=== PATIENT | female | born 1930 | race Caucasian/White ===

== ENCOUNTER 2016-07-28 14:58 | Emergency (ER) | payer MEDICARE, OTHER ==
[~2016-07-28] VITALS: Ht 157.5 cm; Wt 87.1 kg
[~2016-07-28 14:58] MED LIST: ACET325T9 PO; AMLO10TA4 PO; ATROVENT HFA12.9 GM IH; BUDE10.2 IH; CALC200T3 PO; CALC600T4 PO; CHOL100013 PO; CHOL10002 PO; DIGO125T PO; DILT240C32 PO; DILT300C PO; DILT300C4 PO; DULO20CA PO; FELO10TA PO; FLUO20CA8 PO; FURO20TA3 PO; FURO40TA4 PO; FURO80TA72 PO; GABA-585 PO; GABA-586 PO; LEVO100T5 PO; LEVO125T5 PO; LEVO250T25 PO; LISI30TA4 PO; LISI40TA PO; MELA5TAB PO; METO-269 PO; METO100T2 PO; METR500T PO; OMEG300C PO; OMEG500C PO; OMEP20TA PO; PANT40TA3 PO; POTA20TA4 PO; PRIM50TA PO; SITA25TA PO; SUCR1TAB PO; SUCR1TAB29 PO; WARF5TAB7 PO; WARF5VIA PO; XOPENEX HFA15 GM IH; ZOLP5TAB PO
[2016-07-28 15:41] LABS: BILIRUBIN,URINE NEGATIVE (NEG); GLUCOSE,URINE NEGATIVE (NEG); NITRITE,URINE NEGATIVE (NEG); PROTEIN,URINE NEGATIVE (NEG-TRACE); UROBILINOGEN,URINE 0.2 mg/dL (0.2 mg/dL)
--- NOTE | 2016-07-28 16:06 | RAD ---
EXAM: Chest one view. HISTORY: Weakness and fatigue. COMPARISON: 10/31/2015. FINDINGS: A frontal view of the chest is obtained. There is mild basilar atelectasis. There is no pneumothorax or pleural effusion. The heart is mildly enlarged. There are atherosclerotic calcifications of the aorta. A right total shoulder arthroplasty is noted. IMPRESSION: 1. Mild cardiomegaly.
[2016-07-28] MEDS ORDERED: CYAN10005 PO (16:18)
[2016-07-28] MEDS ORDERED: MELA10CA PO (16:18)
[2016-07-28] MEDS ORDERED: SOTA160T PO (16:18)
[2016-07-28] MEDS ORDERED: HYDR-2762 PO (16:18)
[2016-07-28] MEDS ORDERED: FERR-26 PO (16:18)
[2016-07-28] MEDS ORDERED: SUCR1TAB PO (16:18)
[2016-07-28 16:20] LABS: WBC,URINE >40 /HPF (0-4)
[2016-07-28 16:21] LABS: BACTERIA,URINE FEW /HPF (0-FEW); SQUAMOUS EPITHELIAL CELL,UR FEW /LPF
[2016-07-28 16:37] LABS: BASO # 0.1 x10^3/uL (0.0-0.2); BASO % 1 % (0-3); EOS % 4 % (0-3); HEMATOCRIT 43.3 % (36.0-47.0); LYMPH # 1.7 x10^3/uL (1.0-4.8); LYMPH % 19 % (24-48); MEAN CORPUSCULAR HEMOGLOBIN 29 pg (25-35); MEAN CORPUSCULAR HGB CONC 32 g/dL (31-37); MEAN CORPUSCULAR VOLUME 91 fL (79-100); MONO % 7 % (0-9); NEUT % 70 % (31-73); PLATELET COUNT 169 x10^3/uL (140-400); RED BLOOD COUNT 4.76 x10^6/uL (3.50-5.40); RED CELL DISTRIBUTION WIDTH 14.3 % (11.5-14.5); WHITE BLOOD COUNT 8.9 x10^3/uL (4.0-11.0)
[2016-07-28] MEDS ORDERED: LORAZEPAM 2 MG/ML VIAL ONE (16:45)
[2016-07-28 16:47] LABS: CALCIUM 9.2 mg/dL (8.5-10.1); CREATININE 1.2 mg/dL (0.6-1.0); GFR 42.6; POTASSIUM 3.8 mmol/L (3.5-5.1)
[2016-07-28 16:53] LABS: ALBUMIN 3.5 g/dL (3.4-5.0); DIRECT BILIRUBIN 0.1 mg/dL (0.0-0.2); TOTAL BILIRUBIN 0.3 mg/dL (0.2-1.0); TOTAL PROTEIN 7.3 g/dL (6.4-8.2)
--- NOTE | 2016-07-28 17:00 | PHYS DOC ---
Past Medical History Past Medical History: A-Fib, CHF, Depression, GERD, Heart Disease, Hypertension , Hypothyroid, Seizure, Other Additional Past Medical Histor: chronic low back pain Past Surgical History: Hysterectomy, Knee Replacement, Tonsillectomy Additional Past Surgical Histo: 7 low back , lumpectomy L breast, R shoulder replace, R wrist, knee scope Alcohol Use: None Drug Use: None Adult General Chief Complaint Chief Complaint: WEAKNESS/GENERALIZED HPI HPI 85-year-old female presenting to the emergency department with polyuria, dysuria and generalized weakness over the past day. She reports lightheadedness when standing up. The pain is a cramping sensation in the suprapubic region which is associated with weakness. It is nonradiating mild to moderate and happens when she urinates. Review of systems is negative for chest pain shortness of breath abdominal pain cough and runny nose fevers or chills. (nursing note states "flu like symptoms" i clarified what they meant. They meant weak. Pt does not have actual flu like symptoms.) All other review of systems is negative unless otherwise noted in history of present illness. Review of Systems Review of Systems SEE ABOVE. Current Medications Current Medications Current Medications Medications (Trade) Dose Ordered Sig/Reji Start Time Stop Time Status Last Admin Dose Admin Lorazepam 2 mg 2 mg STK-MED ONCE 07/28/16 16:45 07/28/16 16:46 DC Sodium Chloride (Iv Sodium Chloride 0.9% 500ml Bag) 500 ml @ 500 mls/hr 1X ONCE 07/28/16 17:15 07/28/16 18:14 Allergies Allergies Allergies Coded Allergies Type Severity Reaction Last Updated Verified aspirin Allergy Intermediate 10/31/15 Yes morphine Adverse Reaction Intermediate confusion 07/28/16 Yes Physical Exam Physical Exam Constitutional: Well developed, well nourished, no acute distress, non-toxic appearance. HENT: Normocephalic, atraumatic, bilateral external ears normal, oropharynx moist, no oral exudates, nose normal. Eyes: PERRLA, EOMI, conjunctiva normal, no discharge. [] Neck: Normal range of motion, no tenderness, supple, no stridor. Cardiovascular:Heart rate regular rhythm, no murmur [] Lungs & Thorax: Bilateral breath sounds clear to auscultation Abdomen: Mild tenderness in the suprapubic region without CVA tenderness. No rebound tenderness or guarding present. Skin: Warm, dry, no erythema, no rash. Back: No tenderness, no CVA tenderness. [] Extremities: No tenderness, no cyanosis, no clubbing, ROM intact, no edema. Neurologic: Alert and oriented X 3, normal motor function, normal sensory function, no focal deficits noted. [] Psychologic: Affect normal, judgement normal, mood normal. [] Current Patient Data Vital Signs Vital Signs Date Time Temp Pulse Resp B/P Pulse Ox O2 Delivery O2 Flow Rate FiO2 07/28/16 17:13 63 142/66 92 Room Air 07/28/16 16:29 20 07/28/16 15:08 98.1 98.1 Lab Values Laboratory Tests Test 07/28/16 15:25 07/28/16 16:25 Urine Collection Type Void Urine Color Yellow Urine Clarity Clear Urine pH 5.0 Urine Specific [place] 1.020 Urine Protein Negativemg/dL (NEG-TRACE) Urine Glucose (UA) Negativemg/dL (NEG) Urine Ketones (Stick) Negativemg/dL (NEG) Urine Blood Small (NEG) Urine Nitrite Negative (NEG) Urine Bilirubin Negative (NEG) Urine Urobilinogen Dipstick 0.2mg/dL (0.2 mg/dL) Urine Leukocyte Esterase Negative (NEG) Urine RBC 6-10/HPF (0-2) Urine WBC >40/HPF (0-4) Urine Squamous Epithelial Cells Few/LPF Urine Amorphous Sediment Present/HPF Urine Bacteria Few/HPF (0-FEW) Urine Hyaline Casts Few/HPF Urine Mucus Mod/LPF White Blood Count 8.9x10^3/uL (4.0-11.0) Red Blood Count 4.76x10^6/uL (3.50-5.40) Hemoglobin 14.0g/dL (12.0-15.5) Hematocrit 43.3% (36.0-47.0) Mean Corpuscular Volume 91fL (79-100) Mean Corpuscular Hemoglobin 29pg (25-35) Mean Corpuscular Hemoglobin Concent 32g/dL (31-37) Red Cell Distribution Width 14.3% (11.5-14.5) Platelet Count 169x10^3/uL (140-400) Neutrophils (%) (Auto) 70% (31-73) Lymphocytes (%) (Auto) 19% (24-48) L Monocytes (%) (Auto) 7% (0-9) Eosinophils (%) (Auto) 4% (0-3) H Basophils (%) (Auto) 1% (0-3) Neutrophils # (Auto) 6.3x10^3uL (1.8-7.7) Lymphocytes # (Auto) 1.7x10^3/uL (1.0-4.8) Monocytes # (Auto) 0.6x10^3/uL (0.0-1.1) Eosinophils # (Auto) 0.3x10^3/uL (0.0-0.7) Basophils # (Auto) 0.1x10^3/uL (0.0-0.2) Sodium Level 143mmol/L (136-145) Potassium Level 3.8mmol/L (3.5-5.1) Chloride Level 104mmol/L (98-107) Carbon Dioxide Level 28mmol/L (21-32) Anion Gap 11 (6-14) Blood Urea Nitrogen 22mg/dL (7-20) H Creatinine 1.2mg/dL (0.6-1.0) H Estimated GFR (Cockcroft-Gault) 42.6 Glucose Level 133mg/dL (70-99) H Lactic Acid Level 2.4mmol/L (0.4-2.0) H Calcium Level 9.2mg/dL (8.5-10.1) Total Bilirubin 0.3mg/dL (0.2-1.0) Direct Bilirubin 0.1mg/dL (0.0-0.2) Aspartate Amino Transferase (AST) 10U/L (15-37) L Alanine Aminotransferase (ALT) 15U/L (14-59) Alkaline Phosphatase 60U/L (46-116) Troponin I Quantitative < 0.017ng/mL (0.000-0.055) GF-Gjv-A-Type Natriuretic Peptide 1756pg/mL (0-449) H Total Protein 7.3g/dL (6.4-8.2) Albumin 3.5g/dL (3.4-5.0) Lipase 161U/L (73-393) Laboratory Tests 07/28/16 16:25 Laboratory Tests 07/28/16 16:25 EKG EKG [] Radiology/Procedures Radiology/Procedures [] Course & Med Decision Making Course & Med Decision Making Pertinent Labs and Imaging studies reviewed. (See chart for details) [] 85-year-old female presenting the emergency department with suprapubic abdominal pain and signs and symptoms suggestive of urinary tract infection. Afebrile with a normal heart rate here in the emergency department with mild hypertension. Pertinent physical exam findings show mild pain in the suprapubic region. EKG unremarkable. Chest x-ray unremarkable. CBC unremarkable. Urinalysis not suggestive of infection. Patient is dehydrated on chemistry panel showing uremia and mild elevation in creatinine. Dragon Disclaimer Dragon Disclaimer This electronic medical record was generated, in whole or in part, using a voice recognition dictation system. Departure Departure Impression: Primary Impression: Generalized weakness Disposition: 01 HOME, SELF-CARE Condition: STABLE Referrals: JANES GRAVES MD (PCP) Patient Instructions: Weakness Additional Instructions: Thank you for allowing us to participate in your care today. Followup with your primary care physician in 1-2 days if your symptoms do not improve. If you do not have a primary care provider you can ask for a list of our primary care providers. Return to the emergency department you have any new or concerning findings. This should be evaluated by the primary care physician and any necessary consulting services for continued management within a few days after discharge. Return to emergency room if you have any new or concerning symptoms including but not limited to fever, chills, nausea, vomiting, intractable pain, any new rashes, chest pain, shortness of air, uncontrolled bleeding, difficulty breathing, and/or vision loss. AMARILIS HEMPHILL MD Jul 28, 2016 17:00
[2016-07-28] MEDS ORDERED: IV NORMAL SALINE 500ML BAG 500 ML IV ONE (17:15)
[2016-07-28 18:00] VITALS: BP 179/72
--- NOTE | 2016-07-29 11:06 | EKG ---
[facility] [address] [place] [address] Test Date: 2016-07-28 Test Time: 16:17:20 Pat Name: JOSE MAURO Department: Room: Gender: F [employer]: : [id number] Requested By: AMARILIS HEMPHILL Order Number: [id number] Reading MD: Measurements Intervals [place] Rate: 51 P: 90 [place]: 306 QRS: -20 QRSD: 78 T: -20 QT: 578 QTc: 535 Interpretive Statements SINUS RHYTHM ATRIAL PREMATURE COMPLEX(ES) PROLONGED [place] INTERVAL LEFTWARD AXIS CONSIDER LEFT VENTRICULAR HYPERTROPHY QRS(T) CONTOUR ABNORMALITY CONSISTENT WITH ANTEROSEPTAL INFARCT AGE UNDETERMINED CONSISTENT WITH INFERIOR INFARCT AGE UNDETERMINED ST & T ABNORMALITY, CONSIDER
== END 2016-07-28 18:07 | disposition home or self-care (01) ==
LOC: ER 14:58
DX: R53.1 Weakness (principal); R30.0 Dysuria; R35.8 Other polyuria; R10.30 Lower abdominal pain, unspecified; R42 Dizziness and giddiness; I11.0 Hypertensive heart disease with heart failure; I50.9 Heart failure, unspecified; I48.91 Unspecified atrial fibrillation; F32.9 Major depressive disorder, single episode, unspecified; K21.9 Gastro-esophageal reflux disease without esophagitis; E03.9 Hypothyroidism, unspecified; G89.29 Other chronic pain; Z90.710 Acquired absence of both cervix and uterus; Z88.5 Allergy status to narcotic agent; Z88.6 Allergy status to analgesic agent
CPT/HCPCS: 36415; 71010; 80048; 80076; 81001; 83605; 83690; 83880; 84484; 85027; 87086; 93005; 99285-25

== ENCOUNTER → 2016-09-13 | Outpatient (CLI) | payer MEDICARE, OTHER ==
[~2016-09-13] MED LIST changes: +CYAN10005 PO; +FERR-26 PO; +HYDR-2762 PO; +MELA10CA PO; +SOTA160T PO
== END | disposition home or self-care (01) ==
LOC: EKG 09:32
PROVIDERS: ATTEND Internal Medicine Cardiovascular Disease
DX: I48.2 Chronic atrial fibrillation (principal); R00.2 Palpitations
CPT/HCPCS: 93225

== ENCOUNTER 2016-10-17 16:11 | Emergency (ER) | payer MEDICARE, OTHER ==
[~2016-10-17] VITALS: Ht 157.5 cm; Wt 88.9 kg
[~2016-10-17 16:11] MED LIST changes: +ASPI-482 PO; +DILT240T3 PO; +HYDR-2666 PO
--- NOTE | 2016-10-17 16:52 | PHYS DOC ---
Past Medical History Past Medical History: A-Fib, CHF, Depression, GERD, Heart Disease, Hypertension , Hypothyroid, Seizure, Other Additional Past Medical Histor: chronic low back pain Past Surgical History: Hysterectomy, Knee Replacement, Tonsillectomy Additional Past Surgical Histo: 7 low back , lumpectomy L breast, R shoulder replace, R wrist, knee scope Alcohol Use: None Drug Use: None Adult General Chief Complaint Chief Complaint: MECHANICAL FALL HPI HPI Patient is a 86 year old female who presents with a unwitnessed fall at home. Patient states she was trying to her pull a cord was stuck on the wall and falling. Patient does not know if she hit her head. Patient complains of right knee pain and tailbone pain. Patient states she did not lose consciousness. Patient denies any chest pain or shortness of breath. Patient has no other complaints. Pertinent exam findings: Heart regular rate and rhythm without murmurs Lungs clear to auscultation bilaterally without crackles wheeze or rales Positive tenderness to palpation over the midshaft tibia on the right lower extremity ED course: Patient was seen and evaluated upon arrival CBC, CMP, UA, CT scan of the head without contrast was ordered 164: EKG shows a paced rhythm of 70 no STEMI 174: Patient complaining of generalized pain, 50 g of fentanyl was ordered 1945: Results were explained to the patient and she was reexamined and was feeling much better. Patient was ambulated using a walker and could walk with no difficulty. Patient would like to go home. Family is comfortable taking the patient home. Pertinent findings: CT the head unremarkable X-rays show no acute fractures MDM: After reviewing the chart, CC/HPI/PMH, physical exam, [lab results], [ radiological results], do not believe the patient sustained a significant traumatic injury from her fall warranted further workup and admission at this time. On reexamination the patient feels better neurological home. Patient was ambulated in the emergency room without any difficulties. Family at bedside and they're comfortable taking the patient home. Additional verbal discharge instructions were provided to the patient and that if symptoms get worse or any new symptoms arise that are worrisome to the patient she is to return to the emergency room immediately Review of Systems Review of Systems GEN: Denies fevers, chills, sweats HEENT: Denies blurred vision, sore throat CV: Denies chest pain RESP: Denies shortness of air, cough GI: Denies n/v/d NEURO: Denies confusion, dizziness MSK: Coccyx tailbone pain, right knee pain Current Medications Current Medications Current Medications Medications (Trade) Dose Ordered Sig/Reji Start Time Stop Time Status Last Admin Dose Admin Fentanyl Citrate (Fentanyl 2ml Vial) 50 mcg 1X ONCE 10/17/16 17:45 10/17/16 17:46 DC 10/17/16 18:15 50 MCG Allergies Allergies Allergies Coded Allergies Type Severity Reaction Last Updated Verified aspirin Allergy Intermediate 10/31/15 Yes morphine Adverse Reaction Intermediate confusion 07/28/16 Yes Physical Exam Physical Exam GEN.: No apparent distress. Alert and oriented. HEENT: Head is normocephalic, atraumatic NECK: Supple. LUNGS: CTAB. HEART: RRR, S1, S2 present. Peripheral pulses intact ABDOMEN: Soft, nontender. Positive bowel sounds. EXTREMITIES: Without any cyanosis positive tender to palpation over the midshaft right tibia. Dorsal pedis pulse in the right foot neurovascular intact NEUROLOGIC: Normal speech, normal tone PSYCHIATRIC: Normal affect, normal mood. SKIN: No ulcerations Current Patient Data Vital Signs Vital Signs Date Time Temp Pulse Resp B/P (MAP) Pulse Ox O2 Delivery O2 Flow Rate FiO2 10/17/16 19:00 68 26 177/95 (122) 95 Room Air 10/17/16 16:11 98.7 98.7 Lab Values Laboratory Tests Test 10/17/16 17:00 10/17/16 17:10 Urine Collection Type Unknown Urine Color Yellow Urine Clarity Clear Urine pH 5.0 Urine Specific [place] 1.010 Urine Protein Negative mg/dL (NEG-TRACE) Urine Glucose (UA) Negative mg/dL (NEG) Urine Ketones (Stick) Negative mg/dL (NEG) Urine Blood Trace (NEG) Urine Nitrite Negative (NEG) Urine Bilirubin Negative (NEG) Urine Urobilinogen Dipstick 0.2 mg/dL (0.2 mg/dL) Urine Leukocyte Esterase Small (NEG) Urine RBC Occ /HPF (0-2) Urine WBC 1-4 /HPF (0-4) Urine Squamous Epithelial Cells Mod /LPF Urine Bacteria Few /HPF (0-FEW) Urine Hyaline Casts Few /HPF Urine Mucus Mod /LPF White Blood Count 9.0 x10^3/uL (4.0-11.0) Red Blood Count 4.45 x10^6/uL (3.50-5.40) Hemoglobin 13.8 g/dL (12.0-15.5) Hematocrit 41.1 % (36.0-47.0) Mean Corpuscular Volume 92 fL (79-100) Mean Corpuscular Hemoglobin 31 pg (25-35) Mean Corpuscular Hemoglobin Concent 34 g/dL (31-37) Red Cell Distribution Width 14.1 % (11.5-14.5) Platelet Count 163 x10^3/uL (140-400) Neutrophils (%) (Auto) 70 % (31-73) Lymphocytes (%) (Auto) 18 % (24-48) L Monocytes (%) (Auto) 7 % (0-9) Eosinophils (%) (Auto) 4 % (0-3) H Basophils (%) (Auto) 1 % (0-3) Neutrophils # (Auto) 6.3 x10^3uL (1.8-7.7) Lymphocytes # (Auto) 1.6 x10^3/uL (1.0-4.8) Monocytes # (Auto) 0.6 x10^3/uL (0.0-1.1) Eosinophils # (Auto) 0.4 x10^3/uL (0.0-0.7) Basophils # (Auto) 0.1 x10^3/uL (0.0-0.2) Sodium Level 139 mmol/L (136-145) Potassium Level 4.3 mmol/L (3.5-5.1) Chloride Level 101 mmol/L (98-107) Carbon Dioxide Level 27 mmol/L (21-32) Anion Gap 11 (6-14) Blood Urea Nitrogen 19 mg/dL (7-20) Creatinine 0.9 mg/dL (0.6-1.0) Estimated GFR (Cockcroft-Gault) 59.2 BUN/Creatinine Ratio 21 (6-20) H Glucose Level 105 mg/dL (70-99) H Calcium Level 9.1 mg/dL (8.5-10.1) Total Bilirubin 0.3 mg/dL (0.2-1.0) Aspartate Amino Transferase (AST) 18 U/L (15-37) Alanine Aminotransferase (ALT) 21 U/L (14-59) Alkaline Phosphatase 80 U/L (46-116) Total Protein 7.2 g/dL (6.4-8.2) Albumin 3.6 g/dL (3.4-5.0) Albumin/Globulin Ratio 1.0 (1.0-1.7) Laboratory Tests 10/17/16 17:10 Laboratory Tests 10/17/16 17:10 EKG EKG Paced rhythm rate of 70 no STEMI [] Radiology/Procedures Radiology/Procedures Chest x-ray NAD X-ray of the right tib-fib no acute fracture Pelvis no obvious fracture CT of the head without contrast Impression: 1. No acute intracranial process. Please note that CT can be relatively insensitive to acute ischemic infarction for up to 24 hours after symptom onset. 2. Nonspecific white matter changes, probably from chronic microvascular ischemic disease.[] Course & Med Decision Making Course & Med Decision Making Pertinent Labs and Imaging studies reviewed. (See chart for details) [] Dragon Disclaimer Dragon Disclaimer This electronic medical record was generated, in whole or in part, using a voice recognition dictation system. Departure Departure Impression: Primary Impression: Closed head injury Additional Impressions: Fall Leg pain, right Disposition: 01 HOME, SELF-CARE Condition: GUARDED Referrals: JANES GRAVES MD (PCP) Patient Instructions: Concussion and Brain Injury, Fall Prevention and Home Safety Additional Instructions: Please follow up with her family doctor in one to 2 days and return if symptoms increase Problem Qualifiers Primary Impression: Closed head injury Encounter type: initial encounter Qualified Codes: S09.90XA - Unspecified injury of head, initial encounter Additional Impressions: Fall Encounter type: initial encounter Qualified Codes: W19.XXXA - Unspecified fall, initial encounter ALCON SANTILLAN DO October 17, 2016 16:52
--- NOTE | 2016-10-17 17:01 | RAD ---
CT head without contrast History: Fall, trauma to the forehead, confusion. Comparison: CT head 10/31/2015. Procedure: Axial images are obtained of the head from the skull base through the vertex without IV contrast. One or more of the following individualized dose reduction techniques were utilized for the study: Automated exposure control Adjustment of mA and/or kV according to patient's size Use of iterative reconstruction technique. Findings: The ventricles and sulci are normal for the patient's age. No mass-effect, intracranial mass, midline shift, hemorrhage or obvious acute infarction is identified. Basilar cisterns are patent. Patchy, nonspecific white matter low attenuation is seen, probably from chronic microvascular ischemic disease. 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 Bone windows demonstrate no significant calvarial abnormality. Mild right maxillary sinus mucosal thickening is seen. Impression: 1. No acute intracranial process. Please note that CT can be relatively insensitive to acute ischemic infarction for up to 24 hours after symptom onset. 2. Nonspecific white matter changes, probably from chronic microvascular ischemic disease.
[2016-10-17 17:24] LABS: BASO # 0.1 x10^3/uL (0.0-0.2); BASO % 1 % (0-3); EOS % 4 % (0-3); HEMATOCRIT 41.1 % (36.0-47.0); HEMOGLOBIN 13.8 g/dL (12.0-15.5); LYMPH # 1.6 x10^3/uL (1.0-4.8); LYMPH % 18 % (24-48); MEAN CORPUSCULAR HEMOGLOBIN 31 pg (25-35); MEAN CORPUSCULAR HGB CONC 34 g/dL (31-37); MEAN CORPUSCULAR VOLUME 92 fL (79-100); MONO % 7 % (0-9); NEUT % 70 % (31-73); PLATELET COUNT 163 x10^3/uL (140-400); RED BLOOD COUNT 4.45 x10^6/uL (3.50-5.40); RED CELL DISTRIBUTION WIDTH 14.1 % (11.5-14.5)
[2016-10-17 17:25] LABS: BILIRUBIN,URINE NEGATIVE (NEG); GLUCOSE,URINE NEGATIVE (NEG); NITRITE,URINE NEGATIVE (NEG); PROTEIN,URINE NEGATIVE (NEG-TRACE); UROBILINOGEN,URINE 0.2 mg/dL (0.2 mg/dL)
[2016-10-17 17:34] LABS: CALCIUM 9.1 mg/dL (8.5-10.1); CREATININE 0.9 mg/dL (0.6-1.0); GFR 59.2; POTASSIUM 4.3 mmol/L (3.5-5.1)
[2016-10-17 17:37] LABS: BACTERIA,URINE FEW /HPF (0-FEW); RBC,URINE OCC /HPF (0-2); SQUAMOUS EPITHELIAL CELL,UR MOD /LPF
[2016-10-17 17:40] LABS: ALBUMIN 3.6 g/dL (3.4-5.0); TOTAL BILIRUBIN 0.3 mg/dL (0.2-1.0); TOTAL PROTEIN 7.2 g/dL (6.4-8.2)
[2016-10-17] MEDS ORDERED: fentaNYL PF VIAL 100 MCG/2 ML VIAL IV ONE (17:45)
[2016-10-17 19:00] VITALS: BP 177/95
--- NOTE | 2016-10-18 06:26 | EKG ---
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
--- NOTE | 2016-10-18 09:19 | RAD ---
Pelvis radiograph History: Trauma, fall today, pain in the pelvic region. Comparison: None. Findings: AP view of the pelvis. No acute fracture or dislocation is identified. Proximal right femur demonstrates fixation hardware, incompletely visualized. Degenerative changes are seen in the lower lumbar spine. Impression: No acute osseous traumatic injury identified.
--- NOTE | 2016-10-18 09:20 | RAD ---
Right tibia and fibula radiographs History: Fall, pain, total knee arthroplasty. Comparison: None. Findings: AP and lateral views of the right knee. Right total knee arthroplasty is seen. No acute fracture or acute malalignment is identified. Impression: No acute osseous traumatic injury identified.
--- NOTE | 2016-10-18 09:21 | RAD ---
Exam: AP portable chest. History: Trauma, fall today. Comparison: 10/06/2016. Findings: The heart and mediastinal structures are within normal limits for size. Lungs are without infiltrate. No pneumothorax or pleural effusion is appreciated. Single lead pacemaker by left subclavian approach is again seen. Arterial calcifications are present. Right humeral prosthesis is noted. Impression: 1. No acute cardiopulmonary process.
== END 2016-10-17 20:11 | disposition home or self-care (01) ==
LOC: ER 16:11
DX: M25.561 Pain in right knee (principal); S09.90XA Unspecified injury of head, initial encounter; I11.0 Hypertensive heart disease with heart failure; I50.9 Heart failure, unspecified; E03.9 Hypothyroidism, unspecified; K21.9 Gastro-esophageal reflux disease without esophagitis; G89.29 Other chronic pain; Z96.651 Presence of right artificial knee joint; Z88.5 Allergy status to narcotic agent; Z88.6 Allergy status to analgesic agent
CPT/HCPCS: 36415; 70450; 71010; 72170; 73590; 80053; 81001; 85027; 87086; 87186; 93005; 96374; 99285; J3010

== ENCOUNTER → 2017-07-23 | Outpatient (CLI) | payer MEDICARE, OTHER | END | disposition home or self-care (01) | LOC: KCIC US 09:40 | DX: N28.1 Cyst of kidney, acquired (principal) | CPT/HCPCS: 76700 ==

== ENCOUNTER → 2018-01-14 | Outpatient (CLI) | payer MEDICARE, OTHER ==
[~2018-01-14] MED LIST changes: -FERR-26 PO; +FERR325T14 PO; -HYDR-2666 PO; +HYDR-2758 PO; +LISI-130 PO; -LISI40TA PO; -METO100T2 PO; +METO100T7 PO; -OMEP20TA PO; +OMEP20TA8 PO; -SUCR1TAB29 PO; +SUCR1TAB35 PO; +WARF-31 PO; -WARF5TAB7 PO
[2018-01-14 15:31] LABS: BASO % 1 % (0-3); EOS # 0.3 x10^3/uL (0.0-0.7); EOS % 4 % (0-3); HEMOGLOBIN 9.6 g/dL (12.0-15.5); LYMPH # 1.1 x10^3/uL (1.0-4.8); LYMPH % 13 % (24-48); MEAN CORPUSCULAR HEMOGLOBIN 23 pg (25-35); MEAN CORPUSCULAR HGB CONC 31 g/dL (31-37); MEAN CORPUSCULAR VOLUME 75 fL (79-100); MONO # 0.6 x10^3/uL (0.0-1.1); MONO % 7 % (0-9); NEUT # 6.4 x10^3uL (1.8-7.7); NEUT % 75 % (31-73); PLATELET COUNT 255 x10^3/uL (140-400); RED BLOOD COUNT 4.13 x10^6/uL (3.50-5.40); RED CELL DISTRIBUTION WIDTH 16.9 % (11.5-14.5); WHITE BLOOD COUNT 8.5 x10^3/uL (4.0-11.0)
[2018-01-14 15:48] LABS: ALBUMIN 3.5 g/dL (3.4-5.0); ALBUMIN/GLOBULIN RATIO 0.9 (1.0-1.7); CALCIUM 9.2 mg/dL (8.5-10.1); CREATININE 1.1 mg/dL (0.6-1.0); GFR 46.9; POTASSIUM 3.8 mmol/L (3.5-5.1); TOTAL BILIRUBIN 0.4 mg/dL (0.2-1.0); TOTAL PROTEIN 7.2 g/dL (6.4-8.2)
== END | disposition home or self-care (01) ==
LOC: SPEC 15:16
PROVIDERS: ATTEND Internal Medicine
DX: I48.91 Unspecified atrial fibrillation (principal); I11.0 Hypertensive heart disease with heart failure; I50.9 Heart failure, unspecified; E03.9 Hypothyroidism, unspecified; K21.9 Gastro-esophageal reflux disease without esophagitis; J44.9 Chronic obstructive pulmonary disease, unspecified; Z96.651 Presence of right artificial knee joint; Z87.891 Personal history of nicotine dependence; Z87.440 Personal history of urinary (tract) infections; Z86.73 Personal history of transient ischemic attack (TIA), and cerebral infarction without residual deficits; Z90.710 Acquired absence of both cervix and uterus; Z88.6 Allergy status to analgesic agent; Z88.8 Allergy status to other drugs, medicaments and biological substances; Z88.5 Allergy status to narcotic agent; Z82.49 Family history of ischemic heart disease and other diseases of the circulatory system; Z83.49 Family history of other endocrine, nutritional and metabolic diseases
CPT/HCPCS: 36415; 80053; 85025

== ENCOUNTER 2018-09-19 13:30 | Emergency (ER) | payer MEDICARE, OTHER ==
[~2018-09-19] VITALS: Ht 157.5 cm; Wt 83.9 kg
[~2018-09-19 13:30] MED LIST changes: -GABA-586 PO; +GABA300C18 PO; -HYDR-2758 PO; +HYDR-2761 PO; -HYDR-2762 PO; +HYDR-2765 PO
--- NOTE | 2018-09-19 13:56 | PHYS DOC ---
Past Medical History Past Medical History: A-Fib, CHF, Depression, GERD, Heart Disease, Hypertension, Hypothyroid, Seizure, Other Additional Past Medical Histor: chronic low back pain Past Surgical History: Hysterectomy, Knee Replacement, Tonsillectomy Additional Past Surgical Histo: 7 low back , lumpectomy L breast, R shoulder replace, R wrist, knee scope Alcohol Use: None Drug Use: None Adult General Chief Complaint Chief Complaint: MECHANICAL FALL HPI HPI Patient is an 88-year-old female who presents to the emergency department for evaluation. She states thather left foot got caught when she was walking today, causing her to fall, and strike her left pelvis/hip on the ground. She is complaining of lower back, left pelvic pain, and left foot, ankle, and lower leg pain. She denies hitting her head, or any head or neck injury, upper back pain, chest pain, shortness of breath, dizziness or lightheadedness. She does take warfarin. She denies any numbness or weakness. Palpation and movement of the affected areas worsen her pain. There are no alleviating factors to her symptoms. She did take a 10 mg Percocet tablet at home prior to arrival, something she is prescribed for chronic pain. Review of Systems Review of Systems Constitutional: Denies fever or chills [] Eyes: Denies change in visual acuity, redness, or eye pain [] HENT: Denies nasal congestion or sore throat [] Respiratory: Denies cough or shortness of breath [] Cardiovascular: The patient denies any shortness of breath, chest pain, palpitations, or orthopnea [] GI: Denies abdominal pain, nausea, vomiting, bloody stools or diarrhea [] : Denies dysuria or hematuria [] Musculoskeletal: Denies back pain or joint pain, other than as noted in the history of present illness. [] Integument: Denies rash or skin lesions [] Neurologic: Denies headache, focal weakness or sensory changes [] Endocrine: Denies polyuria or polydipsia [] All other systems were reviewed and found to be within normal limits, except as documented in this note. Current Medications Current Medications Current Medications Medications (Trade) Dose Ordered Sig/Reji Start Time Stop Time Status Last Admin Dose Admin Hydromorphone HCl (Dilaudid) 0.5 mg 1X ONCE 09/19/18 14:00 09/19/18 14:01 DC 09/19/18 14:33 0.5 MG Allergies Allergies Allergies Coded Allergies Type Severity Reaction Last Updated Verified aspirin Allergy Intermediate 10/31/15 Yes morphine Adverse Reaction Intermediate confusion 07/28/16 Yes Physical Exam Physical Exam PHYSICAL EXAM: CONSTITUTIONAL: Well developed, well nourished HEAD: normocephalic, atraumatic EENT: PERRL, EOMI. Conjunctivae normal color, sclerae non-icteric; moist mucous membranes. NECK: Supple, non-tender; no meningismus. LUNGS: Lungs CTA, breathing even and unlabored. Normal air movement. HEART: Regular rate and rhythm, no murmur CHEST: No deformity; non-tender ABDOMEN: The abdomen is soft, and non-tender, no masses or bruits. EXTREM: Normal ROM; no deformity, no calf tenderness. Normal pulses palpable in all extremities. There is mild bilateral pedal edema.there is tenderness to palpation of the left foot, ankle, lower leg diffusely without focal tenderness to palpation or deformity. Pulses are present. SKIN: No rash; no diaphoresis NEURO: Alert; normal speech and cognition; CN's grossly intact; strength grossly intact without focal deficit. BACK: No CVA TTP.there is tenderness to palpation diffusely in the lower lumbar spine, as well as left posterior pelvis. The hips are atraumatic bilaterally, with normal range of motion in the hips bilaterally, without significant discomfort. Current Patient Data Vital Signs Vital Signs Date Time Temp Pulse Resp B/P (MAP) Pulse Ox O2 Delivery O2 Flow Rate FiO2 09/19/18 14:48 64 16 96 09/19/18 13:40 98.3 176/73 (107) Room Air 98.3 Lab Values Laboratory Tests Test 09/19/18 14:25 White Blood Count 9.7 x10^3/uL (4.0-11.0) Red Blood Count 4.68 x10^6/uL (3.50-5.40) Hemoglobin 8.5 g/dL (12.0-15.5) L Hematocrit 28.5 % (36.0-47.0) L Mean Corpuscular Volume 61 fL (79-100) L Mean Corpuscular Hemoglobin 18 pg (25-35) L Mean Corpuscular Hemoglobin Concent 30 g/dL (31-37) L Red Cell Distribution Width 20.7 % (11.5-14.5) H Platelet Count 235 x10^3/uL (140-400) Neutrophils (%) (Auto) 67 % (31-73) Lymphocytes (%) (Auto) 19 % (24-48) L Monocytes (%) (Auto) 9 % (0-9) Eosinophils (%) (Auto) 5 % (0-3) H Basophils (%) (Auto) 1 % (0-3) Neutrophils # (Auto) 6.5 x10^3uL (1.8-7.7) Lymphocytes # (Auto) 1.8 x10^3/uL (1.0-4.8) Monocytes # (Auto) 0.8 x10^3/uL (0.0-1.1) Eosinophils # (Auto) 0.5 x10^3/uL (0.0-0.7) Basophils # (Auto) 0.1 x10^3/uL (0.0-0.2) Platelet Estimate Adequate (ADEQUATE) Hypochromasia Marked Poikilocytosis Slight Anisocytosis Mod Microcytosis Marked Ovalocytes Present Schistocytes Occ Prothrombin Time 27.2 SEC (11.7-14.0) H Prothrombin Time INR 2.5 (0.8-1.1) H Sodium Level 137 mmol/L (136-145) Potassium Level 3.8 mmol/L (3.5-5.1) Chloride Level 99 mmol/L (98-107) Carbon Dioxide Level 30 mmol/L (21-32) Anion Gap 8 (6-14) Blood Urea Nitrogen 16 mg/dL (7-20) Creatinine 1.1 mg/dL (0.6-1.0) H Estimated GFR (Cockcroft-Gault) 46.8 Glucose Level 91 mg/dL (70-99) Calcium Level 8.8 mg/dL (8.5-10.1) Laboratory Tests 09/19/18 14:25 Laboratory Tests 09/19/18 14:25 EKG EKG [] Radiology/Procedures Radiology/Procedures [PROCEDURE: ANKLE LEFT 3V Examination: 2 views of the left tibia and fibula, 3 views of the left foot and left ankle HISTORY: History of fall, pain COMPARISON: None available. Findings: The alignment of the tibia and fibula grossly appears unremarkable. There is no acute fracture or dislocation identified. Moderate joint space loss likely degeneration identified in the tarsal, tarsometatarsal joints, tarsophalangeal joints, interphalangeal joints. Small enthesophyte identified in the superior aspect of the distal talus and superior navicular bone. The ankle mortise appears intact. IMPRESSION: No acute osseous findings. ] PROCEDURE: CT LUMBAR SPINE WO CONTRAST Examination: CT lumbar spine without contrast HISTORY: History of fall, low back pain COMPARISON: None available TECHNIQUE: Axial CT images of the lumbar spine were performed with a contrast. Coronal and sagittal reformats are performed Exposure: One or more of the following individualized dose reduction techniques were utilized for this examination: 1. Automated exposure control 2. Adjustment of the mA and/or kV according to patient size 3. Use of iterative reconstruction technique FINDINGS: Mild compression change of L2 vertebral body identified with kyphoplasty changes. Moderate intervertebral disc height loss identified throughout the lumbar spine with the moderate disc bulges. L1-L2: Mild disc bulge causing mild anterior thecal sac impression. Mild bilateral foraminal narrowing L2-L3: Diffuse disc bulge causing moderate spinal canal stenosis. Mild bilateral neural foraminal narrowing. L3-L4: Diffuse disc bulge causing severe spinal canal stenosis. Mild bilateral neural foraminal narrowing L4-L5: Diffuse disc bulge causing severe spinal canal stenosis. Mild right, moderate left neural foraminal narrowing. L5-S1: Diffuse disc bulge causing moderate to severe spinal canal stenosis. Moderate bilateral neural foraminal narrowing left greater than right. Left laminectomy changes identified at L4 vertebral level. Multiple cystic changes identified in the bilateral kidneys. There is a large hyperdensity identified in the right kidney measuring 4.1 x 2.6 cm and measuring 56 Hounsfield units could be a hyperdense cyst or mass. Smaller cystic structures identified in the left kidney. Severe aortic atherosclerosis. Multiple sigmoid colon diverticulosis. IMPRESSION: 1. Multilevel degenerative changes identified in the lumbar spine most at L3-L4, L4-L5 vertebral levels described above. 2. Large hyperdensity identified in the right kidney measuring 4.1 cm could be a hyperdense cyst or mass. Recommend ultrasound kidneys. 3. Mild compression changes of L2 vertebral body with kyphoplasty changes. PROCEDURE: CT PELVIS WO CONTRAST Examination: CT pelvis without contrast HISTORY: History of fall, pelvic pain TECHNIQUE: Axial CT images of the pelvis were performed without contrast. Coronal and sagittal reformats are performed. Exposure: One or more of the following individualized dose reduction techniques were utilized for this examination: 1. Automated exposure control 2. Adjustment of the mA and/or kV according to patient size 3. Use of iterative reconstruction technique FINDINGS: The bilateral femoral heads within the acetabulum. Intramedullary isabell and hip screw is identified transfixing the right femur. Moderate joint space loss identified in the bilateral hip joints. There is no acute fracture or dislocation identified. Multiple sigmoid colon diverticulosis identified. Urinary bladder is mildly distended. IMPRESSION: No acute osseous findings Course & Med Decision Making Course & Med Decision Making Pertinent Labs and Imaging studies reviewed. (See chart for details) []4:20 PM: The patient's condition remains stable. She is able to ambulate with the use of her walker and stable on her feet. She lives with her daughter, with whom I also discussed test results. I discussed the importance of close PCP follow-up and return precautions. The patient does have pain medication which she takes at home twice daily according to her daughter. Dragon Disclaimer Dragon Disclaimer This electronic medical record was generated, in whole or in part, using a voice recognition dictation system. Departure Departure Impression: Primary Impression: Back contusion Additional Impressions: Fall Ankle contusion Disposition: HOME, SELF-CARE Condition: STABLE Referrals: JANES GRAVES MD (PCP) Patient Instructions: Contusion, Fall Prevention and Home Safety Problem Qualifiers JOSE OLMEDO MD September 19, 2018 13:56
[2018-09-19] MEDS ORDERED: HYDROmorphone 2 MG/ML VIAL IV ONE (14:00)
--- NOTE | 2018-09-19 14:25 | RAD ---
Examination: 2 views of the left tibia and fibula, 3 views of the left foot and left ankle HISTORY: History of fall, pain COMPARISON: None available. Findings: The alignment of the tibia and fibula grossly appears unremarkable. There is no acute fracture or dislocation identified. Moderate joint space loss likely degeneration identified in the tarsal, tarsometatarsal joints, tarsophalangeal joints, interphalangeal joints. Small enthesophyte identified in the superior aspect of the distal talus and superior navicular bone. The ankle mortise appears intact. IMPRESSION: No acute osseous findings. Electronically signed by: Dilshad Browne MD (09/19/2018 2:22 PM) [facility]
[2018-09-19 14:42] LABS: BASO # 0.1 x10^3/uL (0.0-0.2); BASO % 1 % (0-3); EOS # 0.5 x10^3/uL (0.0-0.7); EOS % 5 % (0-3); HEMATOCRIT 28.5 % (36.0-47.0); HEMOGLOBIN 8.5 g/dL (12.0-15.5); LYMPH # 1.8 x10^3/uL (1.0-4.8); LYMPH % 19 % (24-48); MEAN CORPUSCULAR HEMOGLOBIN 18 pg (25-35); MEAN CORPUSCULAR HGB CONC 30 g/dL (31-37); MEAN CORPUSCULAR VOLUME 61 fL (79-100); MONO # 0.8 x10^3/uL (0.0-1.1); MONO % 9 % (0-9); NEUT # 6.5 x10^3uL (1.8-7.7); NEUT % 67 % (31-73); PLATELET COUNT 235 x10^3/uL (140-400); RED BLOOD COUNT 4.68 x10^6/uL (3.50-5.40); RED CELL DISTRIBUTION WIDTH 20.7 % (11.5-14.5); WHITE BLOOD COUNT 9.7 x10^3/uL (4.0-11.0)
[2018-09-19 14:52] LABS: PROTHROMBIN TIME PATIENT 27.2 SEC (11.7-14.0)
--- NOTE | 2018-09-19 14:52 | RAD ---
Examination: CT pelvis without contrast HISTORY: History of fall, pelvic pain TECHNIQUE: Axial CT images of the pelvis were performed without contrast. Coronal and sagittal reformats are performed. Exposure: One or more of the following individualized dose reduction techniques were utilized for this examination: 1. Automated exposure control 2. Adjustment of the mA and/or kV according to patient size 3. Use of iterative reconstruction technique FINDINGS: The bilateral femoral heads within the acetabulum. Intramedullary isabell and hip screw is identified transfixing the right femur. Moderate joint space loss identified in the bilateral hip joints. There is no acute fracture or dislocation identified. Multiple sigmoid colon diverticulosis identified. Urinary bladder is mildly distended. IMPRESSION: No acute osseous findings Electronically signed by: Dilshad Browne MD (09/19/2018 2:49 PM) [facility]
[2018-09-19 14:57] LABS: CALCIUM 8.8 mg/dL (8.5-10.1); CREATININE 1.1 mg/dL (0.6-1.0); GFR 46.8; POTASSIUM 3.8 mmol/L (3.5-5.1)
--- NOTE | 2018-09-19 15:03 | RAD ---
Examination: CT lumbar spine without contrast HISTORY: History of fall, low back pain COMPARISON: None available TECHNIQUE: Axial CT images of the lumbar spine were performed with a contrast. Coronal and sagittal reformats are performed Exposure: One or more of the following individualized dose reduction techniques were utilized for this examination: 1. Automated exposure control 2. Adjustment of the mA and/or kV according to patient size 3. Use of iterative reconstruction technique FINDINGS: Mild compression change of L2 vertebral body identified with kyphoplasty changes. Moderate intervertebral disc height loss identified throughout the lumbar spine with the moderate disc bulges. L1-L2: Mild disc bulge causing mild anterior thecal sac impression. Mild bilateral foraminal narrowing L2-L3: Diffuse disc bulge causing moderate spinal canal stenosis. Mild bilateral neural foraminal narrowing. L3-L4: Diffuse disc bulge causing severe spinal canal stenosis. Mild bilateral neural foraminal narrowing L4-L5: Diffuse disc bulge causing severe spinal canal stenosis. Mild right, moderate left neural foraminal narrowing. L5-S1: Diffuse disc bulge causing moderate to severe spinal canal stenosis. Moderate bilateral neural foraminal narrowing left greater than right. Left laminectomy changes identified at L4 vertebral level. Multiple cystic changes identified in the bilateral kidneys. There is a large hyperdensity identified in the right kidney measuring 4.1 x 2.6 cm and measuring 56 Hounsfield units could be a hyperdense cyst or mass. Smaller cystic structures identified in the left kidney. Severe aortic atherosclerosis. Multiple sigmoid colon diverticulosis. IMPRESSION: 1. Multilevel degenerative changes identified in the lumbar spine most at L3-L4, L4-L5 vertebral levels described above. 2. Large hyperdensity identified in the right kidney measuring 4.1 cm could be a hyperdense cyst or mass. Recommend ultrasound kidneys. 3. Mild compression changes of L2 vertebral body with kyphoplasty changes. Electronically signed by: Dilshad Browne MD (09/19/2018 3:00 PM) [facility]
[2018-09-19 15:07] LABS: PLT ESTIMATE ADEQUATE (ADEQUATE)
[2018-09-19 15:08] LABS: ANISOCYTOSIS MOD; HYPOCHROMIA MARKED; MICROCYTOSIS MARKED; POIKILOCYTOSIS SLIGHT
[2018-09-19 15:09] LABS: OVALOCYTES PRESENT
[2018-09-19 15:10] LABS: SCHISTOCYTES OCC
[2018-09-19 16:20] VITALS: BP 161/70
== END 2018-09-19 16:57 | disposition home or self-care (01) ==
LOC: ER 13:30
DX: S30.0XXA Contusion of lower back and pelvis, initial encounter (principal); S90.02XA Contusion of left ankle, initial encounter; M79.672 Pain in left foot; I48.91 Unspecified atrial fibrillation; I11.0 Hypertensive heart disease with heart failure; I50.9 Heart failure, unspecified; E03.9 Hypothyroidism, unspecified; K21.9 Gastro-esophageal reflux disease without esophagitis; F32.9 Major depressive disorder, single episode, unspecified; G89.29 Other chronic pain; K57.32 Diverticulitis of large intestine without perforation or abscess without bleeding; Z90.710 Acquired absence of both cervix and uterus; Z90.89 Acquired absence of other organs; Z96.611 Presence of right artificial shoulder joint; Z96.631 Presence of right artificial wrist joint; Z96.651 Presence of right artificial knee joint; Z88.6 Allergy status to analgesic agent; Z88.5 Allergy status to narcotic agent; W18.09XA Striking against other object with subsequent fall, initial encounter; Y93.01 Activity, walking, marching and hiking; Y92.89 Other specified places as the place of occurrence of the external cause; Y99.8 Other external cause status
CPT/HCPCS: 36415; 72131; 72192; 73590; 73610; 73630; 80048; 85025; 85610; 96374; 99285; J1170; 99284-25

== ENCOUNTER 2018-12-29 00:04 | Inpatient (IN) | payer MEDICARE ==
[~2018-12-29] VITALS: Ht 157.5 cm; Wt 76.7 kg
[2018-12-29] VITALS (7 sets, daily range): BP systolic 139–194; BP diastolic 64–87
[~2018-12-29 00:04] MED LIST changes: +CYAN-25 PO; -CYAN10005 PO; -PANT40TA3 PO; +PANT40TA77 PO
[2018-12-29] MEDS ORDERED: ASPIRIN 325 MG TABLET PO ONE (00:15)
[2018-12-29 00:35] LABS: BASO # 0.1 x10^3/uL (0.0-0.2); BASO % 1 % (0-3); EOS # 0.3 x10^3/uL (0.0-0.7); EOS % 4 % (0-3); HEMATOCRIT 32.3 % (36.0-47.0); HEMOGLOBIN 9.8 g/dL (12.0-15.5); LYMPH # 1.5 x10^3/uL (1.0-4.8); LYMPH % 18 % (24-48); MEAN CORPUSCULAR HEMOGLOBIN 20 pg (25-35); MEAN CORPUSCULAR HGB CONC 30 g/dL (31-37); MEAN CORPUSCULAR VOLUME 68 fL (79-100); MONO # 0.6 x10^3/uL (0.0-1.1); MONO % 8 % (0-9); NEUT # 5.8 x10^3/uL (1.8-7.7); NEUT % 70 % (31-73); PLATELET COUNT 225 x10^3/uL (140-400); PROTHROMBIN TIME PATIENT 24.9 SEC (11.7-14.0); RED BLOOD COUNT 4.78 x10^6/uL (3.50-5.40); RED CELL DISTRIBUTION WIDTH 34.2 % (11.5-14.5); WHITE BLOOD COUNT 8.3 x10^3/uL (4.0-11.0)
[2018-12-29 00:38] LABS: CALCIUM 8.5 mg/dL (8.5-10.1); CREATININE 1.5 mg/dL (0.6-1.0); GFR 32.7; POTASSIUM 3.8 mmol/L (3.5-5.1)
[2018-12-29 00:43] LABS: ALBUMIN 3.4 g/dL (3.4-5.0); ALBUMIN/GLOBULIN RATIO 0.9 (1.0-1.7); MAGNESIUM 1.8 mg/dL (1.8-2.4); TOTAL BILIRUBIN 0.2 mg/dL (0.2-1.0); TOTAL PROTEIN 7.1 g/dL (6.4-8.2)
[2018-12-29 00:51] LABS: CREATINE KINASE 41 U/L (26-192)
[2018-12-29 00:56] LABS: PLT ESTIMATE ADEQUATE (ADEQUATE)
[2018-12-29 00:57] LABS: ANISOCYTOSIS MARKED; HYPOCHROMIA MARKED; MICROCYTOSIS MARKED; POIKILOCYTOSIS SLIGHT
[2018-12-29 00:57] LABS: BILIRUBIN,URINE NEGATIVE (NEG); CLARITY,URINE CLEAR; COLOR,URINE YELLOW; NITRITE,URINE NEGATIVE (NEG); PH,URINE 5.5; PROTEIN,URINE 30 mg/dL (NEG-TRACE); UROBILINOGEN,URINE 0.2 mg/dL (0.2 mg/dL)
[2018-12-29 00:58] LABS: OVALOCYTES MOD
[2018-12-29 00:59] LABS: POLYCHROMASIA SLIGHT; TOXIC GRANULATION SLIGHT
[2018-12-29] MEDS ORDERED: LABETALOL 20 MG/4 ML DISP.SYRIN. IVP ONE (01:00)
[2018-12-29 01:03] LABS: SQUAMOUS EPITHELIAL CELL,UR MANY /LPF
[2018-12-29 01:04] LABS: BACTERIA,URINE MODERATE /HPF (0-FEW); RBC,URINE OCC /HPF (0-2); WBC,URINE 20-40 /HPF (0-4)
--- NOTE | 2018-12-29 01:06 | PHYS DOC ---
Past Medical History Past Medical History: A-Fib, CAD, CHF, Depression, GERD, Heart Disease, Hypertension, Hypothyroid, Seizure, TIA, Other Additional Past Medical Histor: chronic low back pain Past Surgical History: Hysterectomy, Knee Replacement, Pacemaker, Tonsillectomy Additional Past Surgical Histo: 7 low back , lumpectomy L breast, R shoulder replace, R wrist, knee scope Smoking: Quit Greater Than 1 Year Alcohol Use: None Drug Use: None Adult General Chief Complaint Chief Complaint: CHEST PAIN HPI HPI 88-year-old female presents with report of midsternal chest pain with radiation to shoulders and into back. Reports his been ongoing for the past 30-40 minutes. Patient reports some associated shortness of air. Denies diaphoresis. Denies nausea or vomiting. Denies leg swelling or calf tenderness. No significant cardiac risk factors including prior CAD, high blood pressurel, and former smoking. Denies fever or chills. Denies cough. Reports recent 2D echo on but reports unknown results. Also reports currently taking antibiotics for UTI. Review of Systems Review of Systems Constitutional: Denies fever or chills Eyes: Denies redness or eye pain HENT: Denies nasal congestion or sore throat Respiratory: Denies cough or shortness of breath Cardiovascular: Reports chest pain; denies palpitations GI: Denies abdominal pain, nausea, or vomiting : Denies dysuria or hematuria Musculoskeletal: Denies back pain or joint pain Integument: Denies rash or skin lesions Neurologic: Denies headache, focal weakness or sensory changes Complete systems were reviewed and found to be within normal limits, except as documented in this note. Current Medications Current Medications Current Medications Medications (Trade) Dose Ordered Sig/Reji Start Time Stop Time Status Last Admin Dose Admin Aspirin (Everardo Aspirin) 325 mg 1X ONCE 12/29/18 00:15 12/29/18 00:27 DC Allergies Allergies Allergies Coded Allergies Type Severity Reaction Last Updated Verified aspirin Allergy Intermediate 10/31/15 Yes NSAIDS (Non-Steroidal Anti-Inflamma Allergy Unknown 12/29/18 Yes morphine Adverse Reaction Intermediate confusion 07/28/16 Yes Physical Exam Physical Exam Constitutional: Well developed, well nourished, no acute distress, non-toxic appearance HENT: Normocephalic, atraumatic, oropharynx moist Eyes: Conjunctiva normal, no discharge Neck: Normal range of motion, no tenderness, supple Cardiovascular: Heart rate normal, regular rhythm Lungs & Thorax: Bilateral breath sounds clear to auscultation, no wheezing Abdomen: Soft, no tenderness Skin: Warm, dry, no erythema, no rash Back: Upper thoracic paraspinal tenderness on palpation, no CVA tenderness Extremities: No tenderness, ROM intact, no edema Neurologic: Alert and oriented X 3, normal motor function, normal sensory function, no focal deficits noted Psychologic: Affect normal, judgement normal Current Patient Data Vital Signs Vital Signs Date Time Temp Pulse Resp B/P (MAP) Pulse Ox O2 Delivery O2 Flow Rate FiO2 12/29/18 00:04 98.5 72 19 198/83 (121) 100 Room Air 98.5 Lab Values Laboratory Tests Test 12/29/18 00:10 12/29/18 00:45 White Blood Count 8.3 x10^3/uL (4.0-11.0) Red Blood Count 4.78 x10^6/uL (3.50-5.40) Hemoglobin 9.8 g/dL (12.0-15.5) L Hematocrit 32.3 % (36.0-47.0) L Mean Corpuscular Volume 68 fL (79-100) L Mean Corpuscular Hemoglobin 20 pg (25-35) L Mean Corpuscular Hemoglobin Concent 30 g/dL (31-37) L Red Cell Distribution Width 34.2 % (11.5-14.5) H Platelet Count 225 x10^3/uL (140-400) Neutrophils (%) (Auto) 70 % (31-73) Lymphocytes (%) (Auto) 18 % (24-48) L Monocytes (%) (Auto) 8 % (0-9) Eosinophils (%) (Auto) 4 % (0-3) H Basophils (%) (Auto) 1 % (0-3) Neutrophils # (Auto) 5.8 x10^3/uL (1.8-7.7) Lymphocytes # (Auto) 1.5 x10^3/uL (1.0-4.8) Monocytes # (Auto) 0.6 x10^3/uL (0.0-1.1) Eosinophils # (Auto) 0.3 x10^3/uL (0.0-0.7) Basophils # (Auto) 0.1 x10^3/uL (0.0-0.2) Toxic Granulation Slight Platelet Estimate Adequate (ADEQUATE) Polychromasia Slight Hypochromasia Marked Poikilocytosis Slight Anisocytosis Marked Microcytosis Marked Ovalocytes Mod Prothrombin Time 24.9 SEC (11.7-14.0) H Prothrombin Time INR 2.3 (0.8-1.1) H Activated Partial Thromboplast Time 32 SEC (24-38) Sodium Level 140 mmol/L (136-145) Potassium Level 3.8 mmol/L (3.5-5.1) Chloride Level 104 mmol/L (98-107) Carbon Dioxide Level 28 mmol/L (21-32) Anion Gap 8 (6-14) Blood Urea Nitrogen 16 mg/dL (7-20) Creatinine 1.5 mg/dL (0.6-1.0) H Estimated GFR (Cockcroft-Gault) 32.7 BUN/Creatinine Ratio 11 (6-20) Glucose Level 121 mg/dL (70-99) H Calcium Level 8.5 mg/dL (8.5-10.1) Magnesium Level 1.8 mg/dL (1.8-2.4) Total Bilirubin 0.2 mg/dL (0.2-1.0) Aspartate Amino Transferase (AST) 14 U/L (15-37) L Alanine Aminotransferase (ALT) 10 U/L (14-59) L Alkaline Phosphatase 102 U/L (46-116) Creatine Kinase 41 U/L (26-192) Creatine Kinase MB (Mass) 0.8 ng/mL (0.0-3.6) Creatine Kinase MB Relative Index % (0-4) Troponin I Quantitative < 0.017 ng/mL (0.000-0.055) WB-Tpu-S-Type Natriuretic Peptide 1030 pg/mL (0-449) H Total Protein 7.1 g/dL (6.4-8.2) Albumin 3.4 g/dL (3.4-5.0) Albumin/Globulin Ratio 0.9 (1.0-1.7) L Lipase 173 U/L (73-393) Digoxin Level 0.7 ng/mL (0.9-2.0) L Digoxin Last Dose Date Unk Digoxin Last Dose Time Unk Urine Collection Type Unknown Urine Color Yellow Urine Clarity Clear Urine pH 5.5 Urine Specific [place] 1.020 Urine Protein 30 mg/dL (NEG-TRACE) Urine Glucose (UA) Negative mg/dL (NEG) Urine Ketones (Stick) Negative mg/dL (NEG) Urine Blood Negative (NEG) Urine Nitrite Negative (NEG) Urine Bilirubin Negative (NEG) Urine Urobilinogen Dipstick 0.2 mg/dL (0.2 mg/dL) Urine Leukocyte Esterase Moderate (NEG) Urine RBC Occ /HPF (0-2) Urine WBC 20-40 /HPF (0-4) Urine Squamous Epithelial Cells Many /LPF Urine Bacteria Moderate /HPF (0-FEW) Urine Mucus Slight /LPF Laboratory Tests 12/29/18 00:10 Laboratory Tests 12/29/18 00:10 EKG EKG @0009 Afib, with wide QRS likely demand pacing, occasional PVC, NO ST elevation, compared to prior EKG per [facility] from 10/17/16 without significant change from prior. Radiology/Procedures Radiology/Procedures AP CXR: (preliminary interpretation by ED physician): Increased vascular congestion to lung R > L Course & Med Decision Making Course & Med Decision Making Pertinent Labs and Imaging studies reviewed. (See chart for details) Elderly patient presents with report of midsternal chest pain. Patient with si gnificant cardiac risk factors. EKG stable. Labs obtained and posted to chart. Initial troponin within normal limits. BNP elevated. Chest x-ray with concern for increased vascular congestion. Diuretic provided. HEART score 6. Patient requiring admission for further evaluation and treatment. Discussed with Dr. Babb (telecommunication engineer for Dr. Graves, PCP) who is in agreement with admission. Discussed findings and plan with patient and family, who acknowledge understanding and agreement. Dragon Disclaimer Dragon Disclaimer This electronic medical record was generated, in whole or in part, using a voice recognition dictation system. Departure Departure Impression: Primary Impression: Chest pain Additional Impressions: Hypertension CHF (congestive heart failure) Disposition: ADMITTED INPATIENT Admitting Physician: Ester Babb (covering for Dr. Graves (PCP)) Condition: STABLE Referrals: JANES GRAVES MD (PCP) Scripts Lidocaine (Lidocaine PATCH ) 1 Each Adh..patch 1 PATCH TD DAILY for pain for 30 Days, #30 PATCH Prov: JANES GRAVES MD 01/01/19 Azithromycin (AZITHROMYCIN TABLET) 250 Mg Tablet 250 MG PO DAILY for pneumonia for 5 Days, #5 TAB Prov: JANES GRAVES MD 01/01/19 The HEART Score for CP Pts HEART Score for Chest Pain: HEART Score for Chest Pain Response (Comments) Value History Moderately Suspicious 1 ECG Nonspecific Repolarizatio 1 Age > 65 2 Risk Factors >3 Risk Factors or Hx CAD 2 Troponin < Normal Limit 0 Total 6 Risk Factors: Risk Factors: DM, Current or recent (<one month) smoker, HTN, HLP, family history of CAD, obesity. Risk Scores: Score 0 - 3: 2.5% MACE over next 6 weeks - Discharge Home Score 4 - 6: 20.3% MACE over next 6 weeks - Admit for Clinical Observation Score 7 - 10: 72.7% MACE over next 6 weeks - Early Invasive Strategies Problem Qualifiers Primary Impression: Chest pain Chest pain type: unspecified Qualified Codes: R07.9 - Chest pain, unspecified Additional Impressions: Hypertension Hypertension type: unspecified Qualified Codes: I10 - Essential (primary) hypertension CHF (congestive heart failure) Heart failure type: unspecified Heart failure chronicity: unspecified Qualified Codes: I50.9 - Heart failure, unspecified YVES BOWMAN DO Dec 29, 2018 01:06
[2018-12-29 01:13] LABS: DIG 0.7 ng/mL (0.9-2.0)
[2018-12-29] MEDS ORDERED: BUMETANIDE 1 MG/4 ML VIAL. IV ONE (01:15)
[2018-12-29] MEDS: ONDANSETRON PF 4 MG/2 ML VIAL. IV PRN ×2 (01:30→21:46)
[2018-12-29] MEDS: fentaNYL PF VIAL 100 MCG/2 ML VIAL IV PRN ×3 (01:31→21:47)
--- NOTE | 2018-12-29 03:00 | NUR ---
Pt is a poor historian and is unable to tell me her medications. She states that her daughter who had accompanied her to the ER had taken the list home. Pt states that she will ask her daughter to bring in her med list in the a.m. Call light within reach. Pt denies CP or SOA at this time. Will monitor.
--- NOTE | 2018-12-29 06:50 | NUR ---
Pt states that she has 7/10 CP that radiates to her back. VS stable. Gave PRN fentanyl. Ordered STAT EKG and for the third trop to be drawn right now. Assisted pt back into bed. Call light within reach. Will monitor.
--- NOTE | 2018-12-29 07:28 | EKG ---
[facility] [address] [place] [address] Test Date: 2018-12-29 Test Time: 08:19:01 Pat Name: JOSE MAURO Department: Room: Gender: F String Top Sealer: JIMBO : 1930 Requested By: YVES BOWMAN Order Number: [id number] Reading MD: Measurements Intervals [place] Rate: 66 P: MD: QRS: -15 QRSD: 74 T: 19 QT: 384 QTc: 404 Interpretive Statements IRREGULAR RHYTHM, NO P-WAVE FOUND VENTRICULAR PREMATURE COMPLEX(ES) LEFTWARD AXIS LOW LIMB LEAD VOLTAGE QRS(T) CONTOUR ABNORMALITY CONSISTENT WITH ANTEROSEPTAL INFARCT PROBABLY OLD ABNORMAL ECG RI6.02 Compared to ECG 10/17/2016 16:39:18 Left-axis deviation now present Myocardial infarct finding now present Atrial fibrillation no longer present
--- NOTE | 2018-12-29 07:47 | EKG ---
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
[2018-12-29] MEDS ORDERED: MIRT15TA3 PO (08:38)
[2018-12-29] MEDS ORDERED: ROPI0.25 PO (08:39)
[2018-12-29] MEDS ORDERED: OXYC1TAB22 PO (08:39)
--- NOTE | 2018-12-29 09:12 | RAD ---
PORTABLE CHEST 1V Clinical Indication: Chest pain Comparison: AP chest October 17, 2016. Findings: Left chest single lead pacer. Atherosclerotic aortic arch. Mild cardiomegaly. Calcified bilateral hilar lymph nodes. Atelectasis or scarring in the bilateral lung bases. No acute airspace disease. There is no pneumothorax. No pleural effusion is appreciated. No acute bone abnormality. Right shoulder arthroplasty. IMPRESSION: No acute cardiopulmonary process. Electronically signed by: Josafat Pena MD (12/29/2018 9:09 AM) [facility]
[2018-12-29] MEDS ORDERED: ACETAMINOPHEN 325 MG TABLET. PO PRN (09:15)
[2018-12-29] MEDS ORDERED: NON FORMULARY ITEM (Melatonin 5 MG) PO PRN (09:15)
[2018-12-29] MEDS ORDERED: CYANOCOBALAMIN (VITAMIN B-12) 1,000 MCG TABLET. PO SCH (09:15)
[2018-12-29] MEDS ORDERED: hydrALAZINE 20 MG/ML VIAL. IVP PRN (09:15)
[2018-12-29] MEDS ORDERED: ASPIRIN ENTERIC COATED 81 MG TABLET.DR. PO SCH (09:15)
[2018-12-29] MEDS ORDERED: FERROUS SULFATE 325 MG TABLET. PO SCH (10:00)
--- NOTE | 2018-12-29 10:19 | PDOC ---
Provider Note Provider Note Patient seen. History and Physical dictated. See dictation#[id number] SARAHI ASHLEY MD Dec 29, 2018 10:19
--- NOTE | 2018-12-29 11:12 | HP ---
ADMIT DATE: HISTORY OF PRESENT ILLNESS: This 88-year-old female who was admitted to [facility] because of chest pains. The patient has precordial chest pain that is not radiating, but it is there most of the time. This has been going on for the last couple of days. The patient denies any cold, cough, congestion, palpitations, dyspnea, dizziness, abdominal pain, no nausea or heartburn. In the Emergency Room, the patient was evaluated and her blood pressure was high at 198/83 mmHg and because of the chest pains and history of congestive heart failure, atrial fibrillation and multiple medical problems, the patient was admitted for further evaluation and management. REVIEW OF SYSTEMS: As noted in the history of present illness. PAST MEDICAL HISTORY: He has history of diverticulosis, atrial fibrillation, congestive heart failure, COPD, depression, gastroesophageal reflux disease, hypertension, hypothyroidism and seizure disorder. PAST SURGICAL HISTORY: Hysterectomy, knee replacement, tonsillectomy, lumpectomy of the left breast, arthroscopy and back surgeries. ALLERGIES: NONSTEROIDALS, ASPIRIN, AND MORPHINE. MEDICATIONS: Reviewed and reconciled. SOCIAL HISTORY: No history of alcoholism or drug abuse. The patient walks with a walker. History of smoking in the past. FAMILY HISTORY: Positive for hypertension, thyroid problems, heart disease. PHYSICAL EXAMINATION: GENERAL: The patient is an elderly female who is alert, oriented, not in acute distress. VITAL SIGNS: Temperature 98.5, pulse 72 per minute, respirations 19 per minute, blood pressure 198/83 mmHg. GENERAL: The patient is alert, oriented, not in acute distress. EYES: Pupils reacting to light. Conjunctivae pale. Sclerae muddy. HEENT: Unremarkable. NECK: Supple. JVP normal. No thyromegaly. Trachea midline. LUNGS: Clear with decreased breath sounds at bases. CARDIOVASCULAR: S1, S2 irregular. CHEST: Nontender. ABDOMEN: Soft, nontender, no guarding, no rigidity. Bowel sounds present. Abdomen is obese. EXTREMITIES: No edema, no cyanosis, no calf tenderness. LABORATORY FINDINGS: Digoxin level 0.7. Sodium 140, potassium 3.8, BUN 16, creatinine 1.5. BNP is 1030. Troponin less than 0.017. Albumin 3.4, lipase 173. WBC count 8.3, hemoglobin 9.8. Urinalysis, moderate leukocyte esterase, wbc's 20-40, moderate bacteria, nitrite negative. IMPRESSION: 1. Chest pain, rule out coronary artery disease and myocardial infarction. 2. Atrial fibrillation. 3. Congestive heart failure. 4. Hypertension, accelerated. 5. Degenerative joint disease. 6. Chronic obstructive pulmonary disease. 7. History of diverticulosis. 8. Possible urinary tract infection. I will consult Dr. Zuleta for cardiology evaluation and management. Continue to follow serial EKG and enzymes. Monitor protime. PLAN: Continue Coumadin. Start her on IV Rocephin for now and obtain urine culture. I will restart home medications and monitor blood pressure. For details, please refer to the orders. SARAHI ASHLEY MD DR: CARISA/kanchan JOB#: [id number] / [id number]
--- NOTE | 2018-12-29 11:28 | PDOC2 ---
CARDIOLOGY CONSULT NOTE CHEIF COMPLAINT: Chest pain HPI: Lulu Germain is an 88 yo female who presented to the ED this morning with tight pressure chest pain that radiated to her back and under her shoulder blades. This pain has happened before, but have never been this severe. The patient has had palpitations occasionally with lightheadedness, but does not correlate them with current symptoms. She states that earlier in the day was a family get toge ther with a lot of people and was somewhat overwhelming, but she was sitting the whole time. She is currently complaining of an uncomfortable substernal feeling. She denies shortness of breath, dizziness, and loss of consciousness. Durign exam, patient was moved from toilet to bed and experienced the chest pains again. Patient states she had an echocardiogram done 12/27/2018 and is waiting for results. She was also found to be anemic and given IV iron at the time. Speaking to the patient's daughter, she saw Dr. Marin at [facility] recently. She has chronic chest pains, shoulder pains due to arthritis. Patient does not ambulate much in the house and is usually sedentary. PMHX: Chronic atrial fibrillation on anticoagulation with Coumadin and s/p single lead pacer for bradycardia. CHF - Presumed diastolic HF, last known EF of 65% in 2019 Hypertension - malignant Hx of TIA SOCHX: No alcohol, tob or illicits. FAMHX: NC CURRENT MEDS: Multiple home CV meds including diltiazem, digoxin, lisinopril, warfarin, fish oil and furosemide. Reviewed in MAR ALLERGIES: Allergies Coded Allergies Type Severity Reaction Last Updated Verified aspirin Allergy Intermediate 10/31/15 Yes NSAIDS (Non-Steroidal Anti-Inflamma Allergy Unknown 12/29/18 Yes morphine Adverse Reaction Intermediate confusion 07/28/16 Yes ROS: Cardio: chest pain Respiratory: no shortness of breath Neurology: lightheadedness, no dizziness or loss of consciousness PHYSICAL EXAM: Vital Signs/I&O: Vital Signs Date Time Temp Pulse Resp B/P (MAP) Pulse Ox O2 Delivery O2 Flow Rate FiO2 12/29/18 10:46 18 100 Room Air 2.0 12/29/18 08:00 97.6 99 177/74 (108) 97.6 I & O 12/28/18 12/28/18 12/29/18 14:59 22:59 06:59 Output Total 300 ml Balance -300 ml Physical Exam: GEN.: No apparent distress. Alert and oriented. HEENT: Head is normocephalic, atraumatic NECK: Supple. LUNGS: Clear to auscultation. HEART: irr irr, S1, S2 present. Peripheral pulses intact ABDOMEN: Soft, nontender. Positive bowel sounds. EXTREMITIES: Without any cyanosis. NEUROLOGIC: Normal speech, normal tone PSYCHIATRIC: Normal affect, normal mood. SKIN: No ulcerations DIAGNOSTIC TESTING: EK/11 A fib with demand pacing, no ST elevation CXR: 12/29 Atherosclerotic aortic arch Mild cardiomegaly Left chest single lead pacer Calcified bilateral hilar lymph nodes Atelectasis/scarring in the bilateral lung bases. Lab hgb 9.8 Cr 1.5 ASSESSMENT: 1. Chest pain; DDx is broad: MSK pain versus Hypertensive cardiomyopathy. Cannot rule out more significant pathology like dissection. Currently the patient is still having pain with negative enzymes. Unlikely this is related to rhythm disorders. 2. Atrial fibrillation, active on anticoagulation. Rate controlled. 3. Hypertension sub optimally controlled. 4. Anemia; likely iron deficiency? PLAN: 1. Agree with re-initiation of home antihypertensives. Consider holding Lasix given elevated CR. 2. Low suspicion for significant diastolic HF. 3. Continue anticoagulation for now. 4. Will monitor for arrhythmias, interrogate device to rule out any obvious VT/VF. 5. Obtain recent OSH echo. Discussed with family that if chest pain persists, may consider CT scan of chest and or nuclear stress test to rule out occult ischemia. Supportive care. Will follow along. NOREEN MUNOZ MD Dec 29, 2018 11:28
[2018-12-29] MEDS: LEVOTHYROXINE 175 MCG TABLET PO SCH (12:37)
[2018-12-29] MEDS: rOPINIRole 0.25 MG TABLET. PO SCH ×2 (12:37→20:34)
[2018-12-29] MEDS: GABAPENTIN 300 MG CAPSULE. PO SCH ×3 (12:37→20:34)
[2018-12-29] MEDS: PANTOPRAZOLE 40 MG TABLET.DR. PO SCH (12:37)
[2018-12-29] MEDS: DIGOXIN 125 MCG TABLET. PO SCH (12:38)
[2018-12-29] MEDS: LISINOPRIL 20 MG TABLET PO SCH (12:39)
[2018-12-29] MEDS: FUROSEMIDE 40 MG TABLET. PO SCH (12:39)
[2018-12-29] MEDS: cefTRIAXone IV Push 1 GM VIAL. IVP SCH (12:45)
[2018-12-29] MEDS: oxyCODONE/APAP 10/325 1 TAB TABLET PO PRN ×2 (12:47→20:36)
--- NOTE | 2018-12-29 13:25 | NUR ---
Pharmacy Warfarin Dosing Note S:Pharmacy consulted to assist with anticoagulation therapy, target INR: 2 - 3 O:JOSE MAURO is a 88 year old F with Atrial Fibrillation LABS: Last INR: 2.3 Last HGB: 9.8 Last HCT: 32.3 Last PLT: 225 Previous Regimen: 3.5 mg/day Ongoing Drug Interactions: Rocephin, Synthroid A:INR of 2.3 is within desired range. Target range for this patient is: 2 - 3 P: Warfarin dose: 3.5 mg today @ 1600 Bridge Therapy: None Next INR due 12/30/18 Pharmacy anticoagulation service will continue to follow. [facility], 12/29/18 [id number]
[2018-12-29] MEDS: WARFARIN 1 MG TABLET. PO SCH (17:29)
[2018-12-29] MEDS: WARFARIN 2.5 MG TABLET. PO SCH (17:29)
[2018-12-29] MEDS: POTASSIUM CHLORIDE 20 MEQ TABLET.ER. PO SCH (17:30)
[2018-12-29] MEDS: MIRTAZAPINE 15 MG TABLET PO SCH (20:34)
[2018-12-30] VITALS (7 sets, daily range): BP systolic 134–176; BP diastolic 61–74
[2018-12-30] MEDS: fentaNYL PF VIAL 100 MCG/2 ML VIAL IV PRN (02:30)
[2018-12-30] MEDS: LEVOTHYROXINE 175 MCG TABLET PO SCH (05:52)
[2018-12-30] MEDS: PANTOPRAZOLE 40 MG TABLET.DR. PO SCH (05:52)
[2018-12-30] MEDS: oxyCODONE/APAP 10/325 1 TAB TABLET PO PRN ×2 (05:54→19:18)
[2018-12-30 07:06] LABS: BASO # 0.1 x10^3/uL (0.0-0.2); BASO % 1 % (0-3); EOS # 0.4 x10^3/uL (0.0-0.7); EOS % 4 % (0-3); HEMATOCRIT 34.7 % (36.0-47.0); HEMOGLOBIN 10.4 g/dL (12.0-15.5); LYMPH # 1.6 x10^3/uL (1.0-4.8); LYMPH % 18 % (24-48); MEAN CORPUSCULAR HEMOGLOBIN 21 pg (25-35); MEAN CORPUSCULAR HGB CONC 30 g/dL (31-37); MEAN CORPUSCULAR VOLUME 68 fL (79-100); MONO # 0.6 x10^3/uL (0.0-1.1); MONO % 7 % (0-9); NEUT # 6.3 x10^3/uL (1.8-7.7); NEUT % 70 % (31-73); PLATELET COUNT 274 x10^3/uL (140-400); RED BLOOD COUNT 5.09 x10^6/uL (3.50-5.40)
[2018-12-30 07:40] LABS: ALBUMIN 3.6 g/dL (3.4-5.0); ALBUMIN/GLOBULIN RATIO 0.9 (1.0-1.7); CALCIUM 9.1 mg/dL (8.5-10.1); CHOLESTEROL/HDL RATIO 2.9; CREATININE 1.1 mg/dL (0.6-1.0); GFR 46.8; POTASSIUM 3.9 mmol/L (3.5-5.1); TOTAL BILIRUBIN 0.3 mg/dL (0.2-1.0); TOTAL PROTEIN 7.7 g/dL (6.4-8.2)
--- NOTE | 2018-12-30 09:47 | PDOC ---
PROGRESS NOTES Subjective Subjective chest pains due to skeleton+ muscular Objective Objective Vital Signs Date Time Temp Pulse Resp B/P (MAP) Pulse Ox O2 Delivery O2 Flow Rate FiO2 12/30/18 07:31 18 98 Nasal Cannula 2.0 12/30/18 07:00 97.6 71 139/64 (89) 97.6 Intake and Output 12/30/18 06:59 Intake Total 100 ml Output Total 900 ml Balance -800 ml Intake Oral 100 ml Output Urine Total 900 ml Physical Exam Abdomen: Normal bowel sounds, Soft Heart: Regular rate, Normal S1, Normal S2 Extremities: No clubbing General: Alert HEENT: Atraumatic Lungs: Clear to auscultation MUSCULOSKELETAL: No deformity, Other Neck: Supple Neuro: Normal speech Psych/Mental Status: Mental status NL Skin: No breakdown Diagnosis Problem List Problems Medical Problems: (1) Anemia Status: Chronic (2) Atrial fibrillation Status: Chronic (3) Chest pain Status: Acute (4) CHF (congestive heart failure) Status: Acute (5) COPD (chronic obstructive pulmonary disease) Status: Chronic (6) DJD (degenerative joint disease) Status: Chronic (7) Hypertension Status: Chronic Assessment Assessment Problems Medical Problems: (1) Anemia Status: Chronic (2) Atrial fibrillation Status: Chronic (3) Chest pain Status: Acute (4) CHF (congestive heart failure) Status: Acute (5) COPD (chronic obstructive pulmonary disease) Status: Chronic (6) DJD (degenerative joint disease) Status: Chronic (7) Hypertension Status: Chronic IMPRESSION:chest pain ? mid back and muscular . 1. Chest pain, ruled out coronary artery disease and myocardial infarction. 2. Atrial fibrillation rate controlled+ on coumadin inr 2.1 good. 3. Congestive heart failure. 4. Hypertension, accelerated. 5. Degenerative joint disease. 6. Chronic obstructive pulmonary disease. 7. History of diverticulosis. 8. Possible urinary tract infection. IV rocephin PLAN: CT chest. ct torasic spine. Continue Coumadin. Start her on IV Rocephin for now and obtain urine c/s PT/Ot rehab consult Plan Plan of Care Problems Medical Problems: (1) Anemia Status: Chronic (2) Atrial fibrillation Status: Chronic (3) Chest pain Status: Acute (4) CHF (congestive heart failure) Status: Acute (5) COPD (chronic obstructive pulmonary disease) Status: Chronic (6) DJD (degenerative joint disease) Status: Chronic (7) Hypertension Status: Chronic Comment Review of Relevant I have reviewed the following items prakash (where applicable) has been applied. Labs Laboratory Tests Test 12/30/18 05:50 White Blood Count 9.0 x10^3/uL (4.0-11.0) Red Blood Count 5.09 x10^6/uL (3.50-5.40) Hemoglobin 10.4 g/dL (12.0-15.5) Hematocrit 34.7 % (36.0-47.0) Mean Corpuscular Volume 68 fL (79-100) Mean Corpuscular Hemoglobin 21 pg (25-35) Mean Corpuscular Hemoglobin Concent 30 g/dL (31-37) Red Cell Distribution Width 34.0 % (11.5-14.5) Platelet Count 274 x10^3/uL (140-400) Neutrophils (%) (Auto) 70 % (31-73) Lymphocytes (%) (Auto) 18 % (24-48) Monocytes (%) (Auto) 7 % (0-9) Eosinophils (%) (Auto) 4 % (0-3) Basophils (%) (Auto) 1 % (0-3) Neutrophils # (Auto) 6.3 x10^3/uL (1.8-7.7) Lymphocytes # (Auto) 1.6 x10^3/uL (1.0-4.8) Monocytes # (Auto) 0.6 x10^3/uL (0.0-1.1) Eosinophils # (Auto) 0.4 x10^3/uL (0.0-0.7) Basophils # (Auto) 0.1 x10^3/uL (0.0-0.2) Prothrombin Time 23.0 SEC (11.7-14.0) Prothromb Time International Ratio 2.1 (0.8-1.1) Sodium Level 144 mmol/L (136-145) Potassium Level 3.9 mmol/L (3.5-5.1) Chloride Level 106 mmol/L (98-107) Carbon Dioxide Level 29 mmol/L (21-32) Anion Gap 9 (6-14) Blood Urea Nitrogen 13 mg/dL (7-20) Creatinine 1.1 mg/dL (0.6-1.0) Estimated GFR (Cockcroft-Gault) 46.8 BUN/Creatinine Ratio 12 (6-20) Glucose Level 89 mg/dL (70-99) Calcium Level 9.1 mg/dL (8.5-10.1) Total Bilirubin 0.3 mg/dL (0.2-1.0) Aspartate Amino Transf (AST/SGOT) 15 U/L (15-37) Alanine Aminotransferase (ALT/SGPT) 15 U/L (14-59) Alkaline Phosphatase 111 U/L (46-116) Total Protein 7.7 g/dL (6.4-8.2) Albumin 3.6 g/dL (3.4-5.0) Albumin/Globulin Ratio 0.9 (1.0-1.7) Triglycerides Level 157 mg/dL (0-150) Cholesterol Level 133 mg/dL (0-200) LDL Cholesterol, Calculated 56 mg/dL (0-100) VLDL Cholesterol, Calculated 31 mg/dL (0-40) Non-HDL Cholesterol Calculated 87 mg/dL (0-129) HDL Cholesterol 46 mg/dL (40-60) Cholesterol/HDL Ratio 2.9 Medications Current Medications Ceftriaxone Sodium (Rocephin) 1 gm Q24H IVP Last administered on 12/29/18at 12:47; Start 12/29/18 at 10:00 Diltiazem HCl (Cardizem 24hr Cd) 240 mg DAILYWSUP PO Last administered on 12/29/18at 17:36; Start 12/29/18 at 17:00 Ferrous Sulfate (Feosol) 325 mg BID PO ; Start 12/29/18 at 10:00; Stop 12/29/18 at 11:42; Status DC Fish Oil (Fish Oil) 1,000 mg DAILY PO ; Start 12/30/18 at 09:00 Gabapentin (Neurontin) 300 mg TID PO Last administered on 12/29/18at 20:38; Start 12/29/18 at 10:00 Mirtazapine (Remeron) 7.5 mg QHS PO Last administered on 12/29/18at 20:38; Start 12/29/18 at 21:00 Potassium Chloride (Klor-Con) 20 meq DAILY16 PO Last administered on 12/29/18at 17:36; Start 12/29/18 at 16:00 Ropinirole HCl (Requip) 0.25 mg BID PO Last administered on 12/29/18at 20:38; Start 12/29/18 at 10:00 Warfarin Sodium (Coumadin) 1 mg DAILY16 PO Last administered on 12/29/18at 17:36; Start 12/29/18 at 16:00 Warfarin Sodium (Coumadin) 2.5 mg DAILY16 PO Last administered on 12/29/18at 17:36; Start 12/29/18 at 16:00 Vitals/I & O Vital Sign - Last 24 Hours 12/29/18 12/29/18 12/29/18 12/29/18 10:46 11:59 12:01 12:47 Temp 98.1 98.1 Pulse 79 70 Resp 18 26 B/P (MAP) 167/73 (104) 170/74 (106) 170/74 Pulse Ox 100 98 O2 Delivery Room Air Nasal Cannula O2 Flow Rate 2.0 2.0 12/29/18 12/29/18 12/29/18 12/29/18 12:47 12:47 14:34 14:39 Temp 98.2 98.2 Pulse 70 87 Resp 20 22 18 B/P (MAP) 170/74 147/67 (93) Pulse Ox 100 98 98 O2 Delivery Room Air Nasal Cannula Room Air O2 Flow Rate 2.0 2.0 2.0 12/29/18 12/29/18 12/29/18 12/29/18 17:36 19:00 20:10 20:20 Temp 97.7 97.7 Pulse 66 83 81 Resp 20 B/P (MAP) 183/82 139/64 (89) Pulse Ox 92 O2 Delivery Room Air Nasal Cannula O2 Flow Rate 2.0 12/29/18 12/29/18 12/29/18 12/29/18 20:38 21:51 21:54 22:45 Temp 99.0 99.0 Pulse 72 Resp 22 24 24 18 B/P (MAP) 144/67 (92) Pulse Ox 92 92 92 97 O2 Delivery Room Air Nasal Cannula Nasal Cannula Nasal Cannula O2 Flow Rate 2.0 2.0 2.0 12/30/18 12/30/18 12/30/18 12/30/18 01:25 03:50 05:54 07:00 Temp 98.7 97.6 98.7 97.6 Pulse 67 71 Resp 20 18 20 16 B/P (MAP) 134/61 (85) 139/64 (89) Pulse Ox 97 98 98 97 O2 Delivery Room Air Nasal Cannula Nasal Cannula Room Air O2 Flow Rate 2.0 2.0 12/30/18 12/30/18 12/30/18 07:30 07:31 07:31 Resp 24 20 18 Pulse Ox 98 98 98 O2 Delivery Nasal Cannula Nasal Cannula Nasal Cannula O2 Flow Rate 2.0 2.0 2.0 Intake and Output0 12/29/18 12/29/18 12/30/18 14:59 22:59 06:59 Intake Total 0 ml 100 ml Output Total 200 ml 700 ml Balance -200 ml -700 ml 100 ml JANES GRAVES MD Dec 30, 2018 09:47
--- NOTE | 2018-12-30 09:49 | NUR ---
Pt is 88 y/o admitted with chest pain. RN reports that pt is up with assist using walker. Would benefit from PT/OT assessment to ensure safe discharge plan. Please write PT/OT eval and treat orders if you agree. Addendum: 12/30/18 at 0950 by SHIVANI MICHAELS PT Amended: Links added.
[2018-12-30] MEDS: FUROSEMIDE 40 MG TABLET. PO SCH (10:27)
[2018-12-30] MEDS: GABAPENTIN 300 MG CAPSULE. PO SCH ×3 (10:28→20:18)
[2018-12-30] MEDS: OMEGA-3 FATTY ACIDS/FISH OIL 1,000 MG CAPSULE. PO SCH (10:28)
[2018-12-30] MEDS: rOPINIRole 0.25 MG TABLET. PO SCH ×2 (10:28→20:18)
[2018-12-30] MEDS: DIGOXIN 125 MCG TABLET. PO SCH (10:28)
[2018-12-30] MEDS: cefTRIAXone IV Push 1 GM VIAL. IVP SCH (10:30)
[2018-12-30] MEDS: LISINOPRIL 20 MG TABLET PO SCH (10:31)
[2018-12-30] MEDS: LIDOCAINE (700MG/PATCH) PATCH. TD SCH (10:37)
--- NOTE | 2018-12-30 10:55 | RAD ---
PQRS Compliance Statement: One or more of the following individualized dose reduction techniques were utilized for this examination: 1. Automated exposure control 2. Adjustment of the mA and/or kV according to patient size 3. Use of iterative reconstruction technique CT chest without contrast December 30, 2018 CT thoracic spine without contrast INDICATION: Chest pain. COMPARISON: Chest radiograph December 29, 2018, CTA chest June 04, 2013 TECHNIQUE: Multiple axial CT images of the chest are obtained without intravenous contrast. Coronal and sagittal reformats are provided. 2-D reconstructions of the thoracic spine are provided. FINDINGS: There is mild centrilobular pulmonary emphysema. There is a groundglass nodule in the left upper lobe measuring 13 mm (series 2, image 21), stable since June 04, 2013. Trace bilateral pleural effusion. Wedge-shaped airspace consolidation is identified in the right middle lobe measuring 4.0 x 2.0 cm. Additional similar area of nodular almost wedge-shaped consolidation is identified in the right lower lobe measuring 3.4 x 2.2 cm (series 2, image 37). Consideration may be given for multifocal pneumonia although neoplastic etiology is a differential consideration. Left chest wall cardiac device is identified with single lead terminating in the right ventricle. Cardiomegaly. Three-vessel coronary artery vascular calcific effusions are present. Thoracic aorta is normal in course and caliber with moderate calcified atheromatous plaque. Small hiatal hernia. 9 mm paratracheal lymph node is identified. Limited evaluation of hilar lymphadenopathy the absence of intravenous contrast. Visualized portions of the liver, spleen, bilateral adrenal glands pancreas and gallbladder are normal. Hyperattenuation lesion within the superior pole the right kidney measures 4.3 x 2.7 cm which may represent a cyst complicated by hemorrhage or protein although solid lesion remains in the differential. There is minimal superior plate concavity at T3 with 15% height loss. Superior plate compression deformity at T9 with associated Schmorl's node in 25% height loss. No retropulsion. Superior plate compression deformities identified at T10 with 15% height loss and superior endplate Schmorl's node. There is subtle concavity of superior endplate of T12 which appears age indeterminate. There is a superior plate compression deformity at L1 with 25% height loss, possibly associated with Schmorl's node. Findings appear chronic although T12 findings are age indeterminate. No significant osseous neuroforaminal or spinal canal stenosis. IMPRESSION: 1. 2 consolidative areas are identified in the right lower lobe and right middle lobe which may represent multifocal pneumonia. Neoplastic etiology remains a differential consideration and 3 month follow-up chest CT may be of benefit to ensure resolution. 2. Groundglass nodule in the left upper lobe measures 13 mm, not significantly changed dating back to June 04, 2013. Additional two-year follow-up chest CT may be of benefit to assess stability. 3. Multifocal compression deformities are identified involving the thoracic spine predominantly appear stable and likely chronic. If there is persistent clinical concern, further evaluation with MRI may be of benefit. 4. Superior pole right renal lesion measures 4.3 x 2.7 cm, new from the prior examination. High attenuation may reflect a cyst, a by hemorrhage or protein although a solid renal lesion may have similar appearance. Renal mass protocol CT versus ultrasound may be of benefit for further evaluation. Electronically signed by: Elba Rolle MD (12/30/2018 10:51 AM) [id number]
[2018-12-30] MEDS: NYSTATIN TOPICAL POWDER 15GM BOTTLE. TP SCH ×2 (11:00→21:00)
--- NOTE | 2018-12-30 12:17 | PDOC ---
CARDIOLOGY PROGRESS NOTE SUBJECTIVE: Continued pain this morning. Mild difficulty with breathing. OBJECTIVE: Vital Signs/I&O: Vital Signs Date Time Temp Pulse Resp B/P (MAP) Pulse Ox O2 Delivery O2 Flow Rate FiO2 12/30/18 11:00 97.7 82 18 155/68 (97) 97 Room Air 97.7 12/30/18 07:31 2.0 I & O 12/29/18 12/29/18 12/30/18 15:00 23:00 07:00 Intake Total 0 ml 100 ml Output Total 200 ml 700 ml Balance -200 ml -700 ml 100 ml Objective: irr irr. no m/r/g bilateral rhonchi 2+ edema. CURRENT MEDICATIONS: Current Medications Medications (Trade) Dose Ordered Sig/Reji Route PRN Reason Start Time Stop Time Status Last Admin Dose Admin Mirtazapine (Remeron) 7.5 mg QHS PO 12/29/18 21:00 12/29/18 20:38 Potassium Chloride (Klor-Con) 20 meq DAILY16 PO 12/29/18 16:00 12/29/18 17:36 Warfarin Sodium (Coumadin) 2.5 mg DAILY16 PO 12/29/18 16:00 12/29/18 17:36 Diltiazem HCl (Cardizem 24hr Cd) 240 mg DAILYWSUP PO 12/29/18 17:00 12/29/18 17:36 Fish Oil (Fish Oil) 1,000 mg DAILY PO 12/30/18 09:00 12/30/18 10:29 Warfarin Sodium (Coumadin) 1 mg DAILY16 PO 12/29/18 16:00 12/29/18 17:36 Lidocaine (Lidoderm) 1 patch DAILY TD 12/30/18 10:00 12/30/18 10:37 DIAGNOSTIC TESTING: Labs: Laboratory Tests 12/30/18 05:50 Laboratory Tests Test 12/30/18 05:50 White Blood Count 9.0 x10^3/uL (4.0-11.0) Red Blood Count 5.09 x10^6/uL (3.50-5.40) Hemoglobin 10.4 g/dL (12.0-15.5) L Hematocrit 34.7 % (36.0-47.0) L Mean Corpuscular Volume 68 fL (79-100) L Mean Corpuscular Hemoglobin 21 pg (25-35) L Mean Corpuscular Hemoglobin Concent 30 g/dL (31-37) L Red Cell Distribution Width 34.0 % (11.5-14.5) H Platelet Count 274 x10^3/uL (140-400) Neutrophils (%) (Auto) 70 % (31-73) Lymphocytes (%) (Auto) 18 % (24-48) L Monocytes (%) (Auto) 7 % (0-9) Eosinophils (%) (Auto) 4 % (0-3) H Basophils (%) (Auto) 1 % (0-3) Neutrophils # (Auto) 6.3 x10^3/uL (1.8-7.7) Lymphocytes # (Auto) 1.6 x10^3/uL (1.0-4.8) Monocytes # (Auto) 0.6 x10^3/uL (0.0-1.1) Eosinophils # (Auto) 0.4 x10^3/uL (0.0-0.7) Basophils # (Auto) 0.1 x10^3/uL (0.0-0.2) Prothrombin Time 23.0 SEC (11.7-14.0) H Prothromb Time International Ratio 2.1 (0.8-1.1) H Sodium Level 144 mmol/L (136-145) Potassium Level 3.9 mmol/L (3.5-5.1) Chloride Level 106 mmol/L (98-107) Carbon Dioxide Level 29 mmol/L (21-32) Anion Gap 9 (6-14) Blood Urea Nitrogen 13 mg/dL (7-20) Creatinine 1.1 mg/dL (0.6-1.0) H Estimated GFR (Cockcroft-Gault) 46.8 BUN/Creatinine Ratio 12 (6-20) Glucose Level 89 mg/dL (70-99) Calcium Level 9.1 mg/dL (8.5-10.1) Total Bilirubin 0.3 mg/dL (0.2-1.0) Aspartate Amino Transf (AST/SGOT) 15 U/L (15-37) Alkaline Phosphatase 111 U/L (46-116) Total Protein 7.7 g/dL (6.4-8.2) Albumin 3.6 g/dL (3.4-5.0) Albumin/Globulin Ratio 0.9 (1.0-1.7) L Cholesterol Level 133 mg/dL (0-200) LDL Cholesterol, Calculated 56 mg/dL (0-100) VLDL Cholesterol, Calculated 31 mg/dL (0-40) Non-HDL Cholesterol Calculated 87 mg/dL (0-129) Cholesterol/HDL Ratio 2.9 ASSESSMENT: 1. Chronic atrial fibrillation on anticoagulation 2. s/p single chamber pacemaker for tachybrady, well functioning 3. Chest pain - likely thoracic and MSK in nature. normal caliber aorta. 4. HTN - stable 5. Acute on chronic diastolic HF. PLAN: 1. Ok to change lasix to prn. 2. Await device interrogation and OSH echo reports. 3. Tx of possible malignancy versus PNA 4. Ok to hold coumadin if needed for any biopsies or tx of back pain. Will f/u if any abnormalities on echo or device interrogation. Thanks NOREEN MUNOZ MD Dec 30, 2018 12:17
--- NOTE | 2018-12-30 14:38 | NUR ---
[facility] contacted at 1330 to interrogate patients pacemaker. Geraldo from [facility] here at approx 1430.
--- NOTE | 2018-12-30 14:57 | NUR ---
Pharmacy Warfarin Dosing Note S:Pharmacy consulted to assist with anticoagulation therapy started with target INR: 2 -3 O:JOSE MAURO is a 88 year old F with Atrial Fibrillation LABS: Last INR: 2.1 Last HGB: 10.4 Last HCT: 34.7 Last PLT: 274 Last dose of 3.5 MG given on 12/29/18 at 1736 Previous Regimen: 3.5 mg/day Vitamin K given: N Drug Interaction Changes: New Interacting Drug Ongoing Drug Interactions: Rocephin, Synthroid A:INR of 2.1 is within desired range. Target range for this patient is: 2 -3 P: Warfarin dose: 3.5 mg DAILY at 1600 Bridge Therapy: None Next INR due TOMORROW. Pharmacy anticoagulation service will continue to follow. PAU DAIGLE RPH, 12/30/18 [id number]
--- NOTE | 2018-12-30 15:15 | NUR ---
SS following for discharge planning. SS reviewed pt chart. Pt is from home with family and is currently requiring oxygen. OT recommending home healthcare. SS will continue to follow for discharge planning.
--- NOTE | 2018-12-30 16:21 | PDOC ---
PULMONARY PROGRESS NOTES Vitals Vital Signs Date Time Temp Pulse Resp B/P (MAP) Pulse Ox O2 Delivery O2 Flow Rate FiO2 12/30/18 15:00 98.5 66 16 146/63 (90) 97 Room Air 98.5 12/30/18 08:00 2.0 General: Oriented X4 Lungs: Other Cardiovascular: S1, S2 Abdomen: Soft, Non-tender Extremities: Other Labs Laboratory Tests Test 12/29/18 00:10 12/29/18 00:45 12/29/18 04:30 12/29/18 07:20 White Blood Count 8.3 x10^3/uL (4.0-11.0) Red Blood Count 4.78 x10^6/uL (3.50-5.40) Hemoglobin 9.8 g/dL (12.0-15.5) Hematocrit 32.3 % (36.0-47.0) Mean Corpuscular Volume 68 fL (79-100) Mean Corpuscular Hemoglobin 20 pg (25-35) Mean Corpuscular Hemoglobin Concent 30 g/dL (31-37) Red Cell Distribution Width 34.2 % (11.5-14.5) Platelet Count 225 x10^3/uL (140-400) Neutrophils (%) (Auto) 70 % (31-73) Lymphocytes (%) (Auto) 18 % (24-48) Monocytes (%) (Auto) 8 % (0-9) Eosinophils (%) (Auto) 4 % (0-3) Basophils (%) (Auto) 1 % (0-3) Neutrophils # (Auto) 5.8 x10^3/uL (1.8-7.7) Lymphocytes # (Auto) 1.5 x10^3/uL (1.0-4.8) Monocytes # (Auto) 0.6 x10^3/uL (0.0-1.1) Eosinophils # (Auto) 0.3 x10^3/uL (0.0-0.7) Basophils # (Auto) 0.1 x10^3/uL (0.0-0.2) Toxic Granulation Slight Platelet Estimate Adequate (ADEQUATE) Polychromasia Slight Hypochromasia Marked Poikilocytosis Slight Anisocytosis Marked Microcytosis Marked Ovalocytes Mod Prothrombin Time 24.9 SEC (11.7-14.0) Prothromb Time International Ratio 2.3 (0.8-1.1) Activated Partial Thromboplast Time 32 SEC (24-38) Sodium Level 140 mmol/L (136-145) Potassium Level 3.8 mmol/L (3.5-5.1) Chloride Level 104 mmol/L (98-107) Carbon Dioxide Level 28 mmol/L (21-32) Anion Gap 8 (6-14) Blood Urea Nitrogen 16 mg/dL (7-20) Creatinine 1.5 mg/dL (0.6-1.0) Estimated GFR (Cockcroft-Gault) 32.7 BUN/Creatinine Ratio 11 (6-20) Glucose Level 121 mg/dL (70-99) Calcium Level 8.5 mg/dL (8.5-10.1) Magnesium Level 1.8 mg/dL (1.8-2.4) Total Bilirubin 0.2 mg/dL (0.2-1.0) Aspartate Amino Transf (AST/SGOT) 14 U/L (15-37) Alanine Aminotransferase (ALT/SGPT) 10 U/L (14-59) Alkaline Phosphatase 102 U/L (46-116) Creatine Kinase 41 U/L (26-192) Creatine Kinase MB (Mass) 0.8 ng/mL (0.0-3.6) Creatine Kinase MB Relative Index % (0-4) Troponin I Quantitative < 0.017 ng/mL (0.000-0.055) < 0.017 ng/mL (0.000-0.055) < 0.017 ng/mL (0.000-0.055) ON-Vlr-L-Type Natriuretic Peptide 1030 pg/mL (0-449) Total Protein 7.1 g/dL (6.4-8.2) Albumin 3.4 g/dL (3.4-5.0) Albumin/Globulin Ratio 0.9 (1.0-1.7) Lipase 173 U/L (73-393) Digoxin Level 0.7 ng/mL (0.9-2.0) Digoxin Last Dose Date Unk Digoxin Last Dose Time Unk Urine Collection Type Unknown Urine Color Yellow Urine Clarity Clear Urine pH 5.5 Urine Specific [place] 1.020 Urine Protein 30 mg/dL (NEG-TRACE) Urine Glucose (UA) Negative mg/dL (NEG) Urine Ketones (Stick) Negative mg/dL (NEG) Urine Blood Negative (NEG) Urine Nitrite Negative (NEG) Urine Bilirubin Negative (NEG) Urine Urobilinogen Dipstick 0.2 mg/dL (0.2 mg/dL) Urine Leukocyte Esterase Moderate (NEG) Urine RBC Occ /HPF (0-2) Urine WBC 20-40 /HPF (0-4) Urine Squamous Epithelial Cells Many /LPF Urine Bacteria Moderate /HPF (0-FEW) Urine Mucus Slight /LPF Test 12/30/18 05:50 White Blood Count 9.0 x10^3/uL (4.0-11.0) Red Blood Count 5.09 x10^6/uL (3.50-5.40) Hemoglobin 10.4 g/dL (12.0-15.5) Hematocrit 34.7 % (36.0-47.0) Mean Corpuscular Volume 68 fL (79-100) Mean Corpuscular Hemoglobin 21 pg (25-35) Mean Corpuscular Hemoglobin Concent 30 g/dL (31-37) Red Cell Distribution Width 34.0 % (11.5-14.5) Platelet Count 274 x10^3/uL (140-400) Neutrophils (%) (Auto) 70 % (31-73) Lymphocytes (%) (Auto) 18 % (24-48) Monocytes (%) (Auto) 7 % (0-9) Eosinophils (%) (Auto) 4 % (0-3) Basophils (%) (Auto) 1 % (0-3) Neutrophils # (Auto) 6.3 x10^3/uL (1.8-7.7) Lymphocytes # (Auto) 1.6 x10^3/uL (1.0-4.8) Monocytes # (Auto) 0.6 x10^3/uL (0.0-1.1) Eosinophils # (Auto) 0.4 x10^3/uL (0.0-0.7) Basophils # (Auto) 0.1 x10^3/uL (0.0-0.2) Prothrombin Time 23.0 SEC (11.7-14.0) Prothromb Time International Ratio 2.1 (0.8-1.1) Sodium Level 144 mmol/L (136-145) Potassium Level 3.9 mmol/L (3.5-5.1) Chloride Level 106 mmol/L (98-107) Carbon Dioxide Level 29 mmol/L (21-32) Anion Gap 9 (6-14) Blood Urea Nitrogen 13 mg/dL (7-20) Creatinine 1.1 mg/dL (0.6-1.0) Estimated GFR (Cockcroft-Gault) 46.8 BUN/Creatinine Ratio 12 (6-20) Glucose Level 89 mg/dL (70-99) Calcium Level 9.1 mg/dL (8.5-10.1) Total Bilirubin 0.3 mg/dL (0.2-1.0) Aspartate Amino Transf (AST/SGOT) 15 U/L (15-37) Alanine Aminotransferase (ALT/SGPT) 15 U/L (14-59) Alkaline Phosphatase 111 U/L (46-116) Total Protein 7.7 g/dL (6.4-8.2) Albumin 3.6 g/dL (3.4-5.0) Albumin/Globulin Ratio 0.9 (1.0-1.7) Triglycerides Level 157 mg/dL (0-150) Cholesterol Level 133 mg/dL (0-200) LDL Cholesterol, Calculated 56 mg/dL (0-100) VLDL Cholesterol, Calculated 31 mg/dL (0-40) Non-HDL Cholesterol Calculated 87 mg/dL (0-129) HDL Cholesterol 46 mg/dL (40-60) Cholesterol/HDL Ratio 2.9 Laboratory Tests Test 12/30/18 05:50 White Blood Count 9.0 x10^3/uL (4.0-11.0) Red Blood Count 5.09 x10^6/uL (3.50-5.40) Hemoglobin 10.4 g/dL (12.0-15.5) Hematocrit 34.7 % (36.0-47.0) Mean Corpuscular Volume 68 fL (79-100) Mean Corpuscular Hemoglobin 21 pg (25-35) Mean Corpuscular Hemoglobin Concent 30 g/dL (31-37) Red Cell Distribution Width 34.0 % (11.5-14.5) Platelet Count 274 x10^3/uL (140-400) Neutrophils (%) (Auto) 70 % (31-73) Lymphocytes (%) (Auto) 18 % (24-48) Monocytes (%) (Auto) 7 % (0-9) Eosinophils (%) (Auto) 4 % (0-3) Basophils (%) (Auto) 1 % (0-3) Neutrophils # (Auto) 6.3 x10^3/uL (1.8-7.7) Lymphocytes # (Auto) 1.6 x10^3/uL (1.0-4.8) Monocytes # (Auto) 0.6 x10^3/uL (0.0-1.1) Eosinophils # (Auto) 0.4 x10^3/uL (0.0-0.7) Basophils # (Auto) 0.1 x10^3/uL (0.0-0.2) Prothrombin Time 23.0 SEC (11.7-14.0) Prothromb Time International Ratio 2.1 (0.8-1.1) Sodium Level 144 mmol/L (136-145) Potassium Level 3.9 mmol/L (3.5-5.1) Chloride Level 106 mmol/L (98-107) Carbon Dioxide Level 29 mmol/L (21-32) Anion Gap 9 (6-14) Blood Urea Nitrogen 13 mg/dL (7-20) Creatinine 1.1 mg/dL (0.6-1.0) Estimated GFR (Cockcroft-Gault) 46.8 BUN/Creatinine Ratio 12 (6-20) Glucose Level 89 mg/dL (70-99) Calcium Level 9.1 mg/dL (8.5-10.1) Total Bilirubin 0.3 mg/dL (0.2-1.0) Aspartate Amino Transf (AST/SGOT) 15 U/L (15-37) Alanine Aminotransferase (ALT/SGPT) 15 U/L (14-59) Alkaline Phosphatase 111 U/L (46-116) Total Protein 7.7 g/dL (6.4-8.2) Albumin 3.6 g/dL (3.4-5.0) Albumin/Globulin Ratio 0.9 (1.0-1.7) Triglycerides Level 157 mg/dL (0-150) Cholesterol Level 133 mg/dL (0-200) LDL Cholesterol, Calculated 56 mg/dL (0-100) VLDL Cholesterol, Calculated 31 mg/dL (0-40) Non-HDL Cholesterol Calculated 87 mg/dL (0-129) HDL Cholesterol 46 mg/dL (40-60) Cholesterol/HDL Ratio 2.9 Medications Active Scripts Medications Dose Route/Sig Max Daily Dose Days Date Category Percocet 10-325 Mg Tablet (Oxycodone/Acetaminophen) 1 Each Tablet 1 Tab PO PRN Q8HRS PRN 12/29/18 Reported Requip (Ropinirole Hcl) 0.25 Mg Tablet 0.25 Mg PO BID 12/29/18 Reported Mirtazapine 15 Mg Tablet 7.5 Mg PO QHS 12/29/18 Reported Aspir 81 (Aspirin) 81 Mg Tablet.dr 1 Tab PO DAILY 10/06/16 Reported Matzim La (Diltiazem Hcl) 240 Mg Tab.er.24h 240 Mg PO DAILYWSUP 10/05/16 Reported Klor-Con M20 (Potassium Chloride) 20 Meq Tab.er.prt 20 Meq PO DAILY16 10/19/13 Reported Lasix (Furosemide) 80 Mg Tablet 40 Mg PO DAILY 10/19/13 Reported Digoxin 125 Mcg Tablet 125 Mcg PO DAILY 10/19/13 Reported Protonix (Pantoprazole Sodium) 40 Mg Tablet.dr 40 Mg PO DAILY 10/19/13 Reported Levothyroxine Sodium 125 Mcg Tablet 175 Mcg PO DAILYAC 10/19/13 Reported Warfarin Sodium 5 Mg Tablet 3.5 Mg PO DAILY16 06/30/13 Reported Neurontin (Gabapentin) 300 Mg Capsule 300 Mg PO TID 06/30/13 Reported Lisinopril 40 Mg Tablet 40 Mg PO DAILY 06/30/13 Reported Impression . NOTE DICTATED ABNORMAL CT CHEST/PNEUMONIA THANKS ELLYN JORGENSEN MD Dec 30, 2018 16:21
[2018-12-30] MEDS ORDERED: AZITHROMYCIN 250 MG TABLET. PO ONE (16:30)
--- NOTE | 2018-12-30 17:01 | RAD ---
Examination: Ultrasound kidneys HISTORY: History of renal cysts COMPARISON: CT from 12/30/2018 FINDINGS: The right kidney measures 11.0 x 4.7 x 4.8 cm. The left kidney measures 11.8 x 2.6 x 4.7 cm. There is a 4.9 cm complex cystic structure identified in the superior pole of the right kidney could be a complex cyst or hemorrhagic or proteinaceous cyst (prior 4.0 cm). There is a 1.8 cm (prior 1.4 cm) cystic structure identified in the left kidney containing some echogenicity within could be a small complex cyst. Urinary bladder could not be identified as patient just voided. The aorta is obscured by bowel gas. Impression: Complex appearing cystic structures identified in the right and left kidneys with the largest measuring 4.9 cm on the right and 1.8 cm in the left kidney. If clinically possible recommend CT urogram for further evaluation. If CT contrast cannot be given recommend MRI for further evaluation. Electronically signed by: Dilshad Browne MD (12/30/2018 4:59 PM) [id number]
[2018-12-30] MEDS: WARFARIN 2.5 MG TABLET. PO SCH (17:45)
[2018-12-30] MEDS: POTASSIUM CHLORIDE 20 MEQ TABLET.ER. PO SCH (17:45)
[2018-12-30] MEDS: WARFARIN 1 MG TABLET. PO SCH (17:45)
[2018-12-30] MEDS: LACTOBACILLUS RHAMNOSUS GG 1 CAPSULE. PO SCH (20:18)
[2018-12-30] MEDS: MIRTAZAPINE 15 MG TABLET PO SCH (20:18)
[2018-12-30] MEDS: PATCH REMOVAL. MC SCH (21:00)
--- NOTE | 2018-12-30 22:03 | NUR ---
Pt states that she has decided to receive pain relief injection from Dr. Jeff tomorrow 12/31.
[2018-12-31] MEDS: oxyCODONE/APAP 10/325 1 TAB TABLET PO PRN ×2 (00:08→15:04)
--- NOTE | 2018-12-31 00:17 | CONS ---
DATE OF CONSULTATION: 12/30/2018 ATTENDING PHYSICIAN: Venus Escobar MD REASON FOR CONSULTATION: The patient seen in pulmonary consultation at the request of Dr. Escobar for abnormal chest x-ray. HISTORY OF PRESENT ILLNESS: The patient is an 88-year-old with a history of COPD, quit tobacco in 1981, presented with mostly chest discomfort, radiating to the back, questionable fever, cough mostly nonproductive, some shortness of breath with exertion. No hemoptysis. She was evaluated. She is currently being seen by Cardiology. Part of the workup included CT chest. I reviewed the CT, revealing several findings including consolidated areas in the right lower lobe and right middle lobe. There is also ground glass nodule in the left upper lobe that had not changed any in comparison to the film of 2014. The radiology report also indicates that there is a right renal lesion measuring 4 x 3, new from prior. She also had multifocal compression deformities involving the thoracic spine. PAST MEDICAL HISTORY: Otherwise remarkable for chronic atrial fibrillation, on anticoagulation. She is status post previous pacemaker implantation. She has a history of diastolic heart failure, hypertension, TIA. PAST SURGICAL HISTORY: As above, pacemaker implantation. SOCIAL HISTORY: She quit tobacco in 1981. FAMILY HISTORY: No family history of lung cancer. CURRENT MEDICATIONS: List was reviewed. ALLERGIES: NONSTEROIDALS AND MORPHINE. REVIEW OF SYSTEMS: As indicated above, otherwise a 10-point system was reviewed and negative. CONSTITUTIONAL: Subjective fever. EYES: No change in visual acuity. HENT: No nasal congestion or sore throat. PULMONARY: As indicated above. CARDIOVASCULAR: As indicated above. GASTROINTESTINAL: No nausea, vomiting, diarrhea. GENITOURINARY: No dysuria or frequency. MUSCULOSKELETAL: No localized muscle aches or joint pains. SKIN: No new skin rashes. NEUROLOGIC: No headaches, diplopia, or blurred vision. PHYSICAL EXAMINATION: VITAL SIGNS: Stable. O2 saturation was greater than 92%, currently on 2 liters. She had a T-max yesterday of 99.0. HEENT: Eyes, the sclerae were nonicteric. NECK: Jugular venous distention could not be assessed secondary to body habitus. CHEST: Full expansion. LUNGS: Adequate airway flow with no wheezes. CARDIOVASCULAR: Regular rate and rhythm with S1, S2. No S3. ABDOMEN: Obese, soft. EXTREMITIES: No clubbing, cyanosis. Minimal edema. NEUROLOGIC: The patient was awake, alert, following commands. A detailed neuro exam was not performed. LABORATORY DATA: White count was normal. Hemoglobin and hematocrit were noted. INR was noted. Electrolytes were noted. IMPRESSION: 1. Abnormal CT chest revealing right middle lobe and right lower lobe consolidation. 2. Ground ground-glass opacity of the left upper lobe, present back in 2013. 3. Suspect gram-negative, possibly gram-positive pneumonia. 4. Renal mass seen on CT chest. We will defer to primary care physician for further evaluation. 5. Chest pain per Cardiology. 6. Chronic anemia. 7. Acute exacerbation of chronic obstructive pulmonary disease. 8. Acute on chronic diastolic heart failure. 9. Accelerated hypertension. 10. Degenerative joint disease. 11. Chronic atrial fibrillation. PLAN: 1. O2 supplementation. 2. Antibiotics. 3. Repeat CT chest in 2 months. 4. Follow Cardiology input. 5. We will defer further workup of the renal mass to PCP. I do appreciate the privilege in sharing in the patient's care. ELLYN JORGENSEN MD DR: VIDHI/kanchan JOB#: [id number] / [id number]
[2018-12-31 03:50] VITALS: BP 141/63
[2018-12-31] MEDS: PANTOPRAZOLE 40 MG TABLET.DR. PO SCH (06:30)
[2018-12-31] MEDS: LEVOTHYROXINE 175 MCG TABLET PO SCH (06:30)
--- NOTE | 2018-12-31 06:31 | CONS ---
DATE OF CONSULTATION: 12/30/2018 ATTENDING PHYSICIAN: Venus Escobar MD The patient was seen at the request of Dr. Escobar for rehab evaluation. HISTORY OF PRESENT ILLNESS: This is an 88-year-old female admitted to [facility] with chest pain, nonradiating, also having this problem for a couple of days. She denies any cold, cough, congestion, palpitation, dyspnea or dizziness or abdominal pain, but admitted for chronic lower back pain. She was found in the Emergency Room with blood pressure of 198/83. The patient is with known congestive heart failure, also atrial fibrillation. She was admitted for further evaluation and treatment. She is also with known diverticulitis, chronic obstructive pulmonary disease, depression, gastroesophageal reflux disease, hypertension, hypothyroidism, seizure disorder, status post hysterectomy, knee replacement, tonsillectomy, lumpectomy of left breast, arthroscopy and back surgeries. ALLERGIES: SHE IS KNOWN ALLERGIC TO NONSTEROIDAL ANTI-INFLAMMATORY MEDICATION INCLUDING ASPIRIN AND MORPHINE. The patient lives with her daughter. The patient had been taking Percocet for pain control. She admits pain in her upper and lower back. She also admits right shoulder area pain and stiffness and weakness. The patient is status post right shoulder replacement in the past. The patient since admission is also being treated for questionable aspiration pneumonia. CT scan of the chest revealed mild centrilobular pulmonary emphysema; two consolidated areas identified in the right lower lobe and right middle lobe, may represent multifocal pneumonia; neoplastic etiology remains a differential consideration and [address] of the chest is suggested to ensure the consolidated pneumonia has resolved, also ground glass nodule left upper lobe measuring 13 mm, not significantly changed from the study done in 05/2013. Multifocal compression deformities are identified involving thoracic spine, predominantly appears stable and likely chronic. Superior pole right renal lesion measuring 4.3 x 2.7 cm new from the prior examination, may reflect a cyst and she had ultrasound of the kidneys, which revealed complex appearing cystic structures identified in the right and left kidneys with the largest measuring 4.9 cm on the right and 1 cm on the left kidney. Thoracic spine CT scan done revealed compression deformities, mainly involving T9 about 25% with associated Schmorl's node without any retropulsion of the fragments. Also superior endplate compression deformities of T10 about 50% height loss and superior endplate Schmorl's node and septal concavity of the superior endplate of T12, which appears of indeterminate age. Also superior endplate compression deformity at L1 of 25% height loss, possibly associated with Schmorl's node. Findings appear chronic although T12 findings are age indeterminate. PHYSICAL EXAMINATION: Today revealed an elderly female, she is alert, oriented to time, place, person and circumstance and follows commands appropriately, moves all 4 extremities voluntarily. She had relative weakness of right shoulder abductors. She had tenderness to palpation over thoracic and lumbar paraspinal muscles, mainly over sacroiliac joint area and straight leg raising test is negative bilaterally. She had edema of her feet and legs. Deep tendon reflexes are absent at both ankles. She had equal perception to touch and pinprick sensation bilaterally. I have examined her while she is sitting in the bedside chair. She had painful limited movements of thoracolumbar spine. Straight leg raising test is negative bilaterally. ASSESSMENT: Chronic thoracolumbar area pain with radiological evidence of multilevel compression deformities, probably old. No clinical evidence of thoracic or lumbar radiculopathy, lower back pain, most probably from degenerative disk disease of lumbar vertebrae. Clinical evidence of peripheral neuropathy. The patient with congestive heart failure, atrial fibrillation and with recent onset aspiration pneumonia and also renal cyst. RECOMMENDATIONS: Agree with the plan for physical therapy and she apparently has been taking Percocet for pain control on as needed basis. She admits Lidoderm patch is not helping. To consider injecting painful sacroiliac joint area if the pain persists when medically stable. Dr. Escobar, I appreciate asking me to participate in the care of this interesting patient. I will be glad to see her with you on as needed basis while here. MEG LUI MD DR: OSORIO/kanchan JOB#: [id number] / [id number]
[2018-12-31 07:00] VITALS: BP 130/62
[2018-12-31 07:22] LABS: PROTHROMBIN TIME PATIENT 25.5 SEC (11.7-14.0)
[2018-12-31] MEDS: LIDOCAINE (700MG/PATCH) PATCH. TD SCH (09:00)
[2018-12-31] MEDS: OMEGA-3 FATTY ACIDS/FISH OIL 1,000 MG CAPSULE. PO SCH (09:30)
[2018-12-31] MEDS: NYSTATIN TOPICAL POWDER 15GM BOTTLE. TP SCH ×2 (09:30→21:40)
[2018-12-31] MEDS: cefTRIAXone IV Push 1 GM VIAL. IVP SCH (09:30)
[2018-12-31] MEDS: GABAPENTIN 300 MG CAPSULE. PO SCH ×3 (09:31→21:43)
[2018-12-31] MEDS: FUROSEMIDE 40 MG TABLET. PO SCH (09:31)
[2018-12-31] MEDS: LACTOBACILLUS RHAMNOSUS GG 1 CAPSULE. PO SCH ×2 (09:31→21:43)
[2018-12-31] MEDS: DIGOXIN 125 MCG TABLET. PO SCH (09:32)
[2018-12-31] MEDS: AZITHROMYCIN 250 MG TABLET. PO SCH (09:32)
[2018-12-31] MEDS: LISINOPRIL 20 MG TABLET PO SCH (09:33)
[2018-12-31] MEDS: rOPINIRole 0.25 MG TABLET. PO SCH ×2 (09:33→21:43)
--- NOTE | 2018-12-31 09:48 | NUR ---
Pharmacy Warfarin Dosing Note S: Pharmacy consulted to assist with anticoagulation therapy O: JOSE MAURO is a 88 year old F with Atrial Fibrillation LABS: Last INR: 2.3 Last HGB: 10.4 Last HCT: 34.7 Last PLT: 274 Last dose of 3.5 MG given on 12/30/18 at 1746 Vitamin K given: N Ongoing Drug Interactions: Rocephin, Synthroid, Zithromax (12/30) A:INR of 2.3 is within desired range. Target range for this patient is: 2 - 3. New interacting med of Zithromax started 12/30/18. INR has been in range since admit, but hesitant to change to twice a week dosing due to new drug interaction. Will continue with INR ordered for tomorrow and assess trends with new med start. P: Warfarin dose: 3.5 mg Today at 1600 Bridge Therapy: not needed Next INR due 01/01/19 Pharmacy anticoagulation service will continue to follow. [facility], 12/31/18 [id number]
--- NOTE | 2018-12-31 09:53 | PDOC2 ---
CONSULT Date of Consult Date of Consult DATE: 12/31/18 TIME: 09:43 Reason for consultation: Kidney mass Consult: Hematology oncology, Dr. Chiki Alvarez History of present illness: She has an 88-year-old female who is admitted with chest pain, acute, it comes and goes, but acutely severe, radiating to her scapula, better with pain meds, associated with some palpitations, she's also had weight loss of a few pounds, occasional diarrhea, she's legally blind, and has a renal mass and some pulmonary findings, pulmonary is involved with recommendations for follow-up CT and she's being treated for possible UTI as well as right lung consolidation. She has a history of iron deficient anemia, saw Dr. Villagran at and was recently given IV iron completed on 27 December. Has not seen GI but does deny blood loss. Past medical history: Hypothyroid PFO A. fib Iron deficient anemia SP IV iron completed 27 December 2018 Diverticuli CHF Peripheral neuropathy Hypertension TIA Chest pain GERD Diabetes mellitus 2 Macular degeneration, legally blind COPD Depression Seizure disorder Osteoarthritis Past surgical history: Colonoscopy Hysterectomy Knee replacement Tonsillectomy Left breast lump removal Back surgeries Arthroscopy Pacemaker Allergies: Aspirin, NSAIDs Medications: See attached list Social history: Quit tobacco in 1981, lives with her daughter Review of systems: Weight loss, occasional diarrhea, chest pain, legally blind, lower extremity edema, otherwise 10 point review of systems negative. Physical exam: Vitals reviewed Gen.: Elderly female resting in bed, in no acute distress, does not remember all of her history HEENT: mucous membranes moist, head normocephalic atraumatic Neck: Supple, no lymphadenopathy Lymph nodes: No palpable lymphadenopathy neck or axilla Lungs: Breathing comfortably on 2 L nasal cannula without respiratory distress Abdomen: Soft, not significantly tender Extremities: bilateral lower extremity edema mild, with martinez tenderness bilaterally Skin: No obvious rashes, age related skin changes Neuro: Alert and oriented �3 though slow to answer questions Psych: Pleasant mood and affect Lab reviewed: White count 9.0, hemoglobin 10.4, platelets 274 MCV 68 INR 2.3 PTT normal Creatinine 1.1 Rads reviewed: Chest x-ray no acute cardiopulmonary disease 30 December T-spine and chest CT showed right lung consolidation right lower lobe and right middle lobe, pneumonia versus neoplasia, left upper lobe ground glass opacity without change since 2013, 13 mm, chronic T-spine compression deformities, 4.3 cm right renal lesion 30 December ultrasound showed complex cysts right and left kidneys, to 4.9 cm on the right and to 1.8 cm on the left, consider CT urogram or MRI, of note she does have a pacemaker Case discussed with: Patient, records reviewed in [employer] [facility] [employer], including labs and radiology, please see note for summary details. Assessment and Plan: She is an 88-year-old female with admission for chest pain improved, as well as treatment for right lung consolidation and possible UTI with renal cyst Right lung consolidation: On antibiotics, pulmonary is involved Possible UTI: On antibiotics Kidney mass: Will order CT urogram, she has a pacemaker and therefore we will not order MRI, further evaluation with urology as needed after results of CT urogram, interestingly she did have an erythropoietin level that was elevated at June 2018 Iron deficient anemia: She completed IV iron outpatient 27 December, can repeat as needed, would recheck labs in about a month, she can follow-up with Dr. Villagran for this as needed, can also consider outpatient GI eval due to the iron deficient anemia Left upper lobe pulmonary nodule: Stable since 2013 though due to pulmonary findings will likely get a follow-up CT mid-March timeframe disposition: After continued clinical improvement Thank you kindly for this consultation, and please do not hesitate to call with further questions. Past Medical History Cardiovascular: AFIB, CHF, HTN Pulmonary: COPD CENTRAL NERVOUS SYSTEM: TIA GI: GERD Psych: Depression Musculoskeletal: low back pain, Osteoarthritis Endocrine: Hypothyroidism Past Surgical History Past Surgical History: Appendectomy, Total knee replacement, Tonsillectomy, Hysterectomy, Other Family History Family History: Family History Unknown Social History ALCOHOL: none Drugs: None Lives: Alone Current Problem List Problem List Problems Medical Problems: (1) Anemia Status: Chronic (2) Atrial fibrillation Status: Chronic (3) Chest pain Status: Acute (4) CHF (congestive heart failure) Status: Acute (5) COPD (chronic obstructive pulmonary disease) Status: Chronic (6) COPD exacerbation Status: Acute (7) DJD (degenerative joint disease) Status: Chronic (8) Hypertension Status: Chronic Current Medications Current Medications Current Medications Aspirin (Everardo Aspirin) 325 mg 1X ONCE PO ; Start 12/29/18 at 00:15; Stop 12/29/18 at 00:27; Status DC Labetalol HCl (Normodyne Iv Push) 10 mg 1X ONCE IVP Last administered on 12/29/18 01:11; Start 12/29/18 at 01:00; Stop 12/29/18 at 01:01; Status DC Bumetanide (Bumex) 0.5 mg 1X ONCE IV Last administered on 12/29/18at 01:47; Start 12/29/18 at 01:15; Stop 12/29/18 at 01:16; Status DC Ondansetron HCl (Zofran) 4 mg PRN Q8HRS PRN IV NAUSEA/VOMITING Last administered on 12/29/18 21:51; Start 12/29/18 at 01:00; Stop 12/30/18 at 00:59; Status DC Fentanyl Citrate (Fentanyl 2ml Vial) 25 mcg PRN Q2HR PRN IV PAIN Last administered on 12/30/18 07:30; Start 12/29/18 at 01:00; Stop 12/30/18 at 09:44; Status DC Aspirin (Ecotrin) 81 mg DAILY PO ; Start 12/29/18 at 09:15; Stop 12/29/18 at 12:36; Status DC Cyanocobalamin (Vitamin B-12) 1,000 mcg DAILY PO ; Start 12/29/18 at 09:15; Stop 12/29/18 at 11:42; Status DC Digoxin (Lanoxin) 125 mcg DAILY PO Last administered on 12/31/18 09:33; Start 12/29/18 at 09:15 Ferrous Sulfate (Feosol) 325 mg BID PO ; Start 12/29/18 at 10:00; Stop 12/29/18 at 11:42; Status DC Furosemide (Lasix) 40 mg DAILY PO Last administered on 12/31/18 09:33; Start 12/29/18 at 09:15 Gabapentin (Neurontin) 300 mg TID PO Last administered on 12/31/18 09:33; Start 12/29/18 at 10:00 Levothyroxine Sodium (Synthroid) 175 mcg DAILYAC PO Last administered on 12/31/18 06:30; Start 12/29/18 at 09:15 Lisinopril (Prinivil) 40 mg DAILY PO Last administered on 12/31/18 09:33; Start 12/29/18 at 09:15 Mirtazapine (Remeron) 7.5 mg QHS PO Last administered on 12/30/18 20:25; Start 12/29/18 at 21:00 Oxycodone/ Acetaminophen (Percocet 10/325) 1 tab PRN Q8HRS PRN PO PAIN Last administered on 12/31/18 00:08; Start 12/29/18 at 09:15 Pantoprazole Sodium (Protonix) 40 mg DAILYAC PO Last administered on 12/31/18 06:30; Start 12/29/18 at 09:15 Potassium Chloride (Klor-Con) 20 meq DAILY16 PO Last administered on 12/30/18 17:46; Start 12/29/18 at 16:00 Ropinirole HCl (Requip) 0.25 mg BID PO Last administered on 12/31/18 09:33; Start 12/29/18 at 10:00 Warfarin Sodium (Coumadin) 2.5 mg DAILY16 PO Last administered on 12/30/18 17:46; Start 12/29/18 at 16:00 Diltiazem HCl (Cardizem 24hr Cd) 240 mg DAILYWSUP PO Last administered on 12/30/18 17:46; Start 12/29/18 at 17:00 Non-Formulary Medication (Melatonin ) 5 mg QHS PRN PO INSOMNIA; Start 12/29/18 at 09:15; Status UNV Fish Oil (Fish Oil) 1,000 mg DAILY PO Last administered on 12/31/18 09:33; Start 12/30/18 at 09:00 Hydralazine HCl (Apresoline Inj) 10 mg PRN Q4HRS PRN IVP FOR SBP > 160; Start 12/29/18 at 09:15 Acetaminophen (Tylenol) 650 mg PRN Q6HRS PRN PO MILD PAIN / TEMP; Start 12/29/18 at 09:15 Warfarin Sodium (Coumadin Per Pharmacy) 1 each PRN DAILY PRN MC SEE COMMENTS Last administered on 12/30/18 14:56; Start 12/29/18 at 09:15 Warfarin Sodium (Coumadin) 1 mg DAILY16 PO Last administered on 12/30/18 17:46; Start 12/29/18 at 16:00 Ceftriaxone Sodium (Rocephin) 1 gm Q24H IVP Last administered on 12/31/18 09:33; Start 12/29/18 at 10:00 Lidocaine (Lidoderm) 1 patch DAILY TD Last administered on 12/30/18 10:37; Start 12/30/18 at 10:00 Miscellaneous (Lidoderm Patch Removal) 1 ea QHS MC Last administered on 12/30/18 22:13; Start 12/30/18 at 21:00 Nystatin (Nystop) 1 candida BID TP Last administered on 12/31/18 09:33; Start 12/30/18 at 11:00 Lactobacillus Rhamnosus (Culturelle) 1 cap BID PO Last administered on 12/31/18 09:33; Start 12/30/18 at 21:00 Azithromycin (Zithromax) 250 mg 1X ONCE PO Last administered on 12/30/18 17:46; Start 12/30/18 at 16:30; Stop 12/30/18 at 16:31; Status DC Azithromycin (Zithromax) 250 mg DAILY PO Last administered on 12/31/18 09:33; Start 12/31/18 at 09:00 Active Scripts Active Reported Percocet 10-325 Mg Tablet (Oxycodone/Acetaminophen) 1 Each Tablet 1 Tab PO PRN Q8HRS PRN Requip (Ropinirole Hcl) 0.25 Mg Tablet 0.25 Mg PO BID Mirtazapine 15 Mg Tablet 7.5 Mg PO QHS Aspir 81 (Aspirin) 81 Mg Tablet.dr 1 Tab PO DAILY Matzim La (Diltiazem Hcl) 240 Mg Tab.er.24h 240 Mg PO DAILYWSUP Klor-Con M20 (Potassium Chloride) 20 Meq Tab.er.prt 20 Meq PO DAILY16 Lasix (Furosemide) 80 Mg Tablet 40 Mg PO DAILY Digoxin 125 Mcg Tablet 125 Mcg PO DAILY Protonix (Pantoprazole Sodium) 40 Mg Tablet.dr 40 Mg PO DAILY Levothyroxine Sodium 125 Mcg Tablet 175 Mcg PO DAILYAC Warfarin Sodium 5 Mg Tablet 3.5 Mg PO DAILY16 Neurontin (Gabapentin) 300 Mg Capsule 300 Mg PO TID Lisinopril 40 Mg Tablet 40 Mg PO DAILY Allergies Allergies: Coded Allergies: aspirin (Verified Allergy, Intermediate, 10/31/15) NSAIDS (Non-Steroidal Anti-Inflamma (Verified Allergy, Unknown, 12/29/18) morphine (Verified Adverse Reaction, Intermediate, confusion, 07/28/16) Vitals VITALS Vital Signs Date Time Temp Pulse Resp B/P (MAP) Pulse Ox O2 Delivery O2 Flow Rate FiO2 12/31/18 09:33 60 130/62 12/31/18 07:00 98.5 18 96 Nasal Cannula 2.0 98.5 Labs Labs Laboratory Tests Test 12/30/18 05:50 12/31/18 05:40 White Blood Count 9.0 x10^3/uL (4.0-11.0) Red Blood Count 5.09 x10^6/uL (3.50-5.40) Hemoglobin 10.4 g/dL (12.0-15.5) Hematocrit 34.7 % (36.0-47.0) Mean Corpuscular Volume 68 fL (79-100) Mean Corpuscular Hemoglobin 21 pg (25-35) Mean Corpuscular Hemoglobin Concent 30 g/dL (31-37) Red Cell Distribution Width 34.0 % (11.5-14.5) Platelet Count 274 x10^3/uL (140-400) Neutrophils (%) (Auto) 70 % (31-73) Lymphocytes (%) (Auto) 18 % (24-48) Monocytes (%) (Auto) 7 % (0-9) Eosinophils (%) (Auto) 4 % (0-3) Basophils (%) (Auto) 1 % (0-3) Neutrophils # (Auto) 6.3 x10^3/uL (1.8-7.7) Lymphocytes # (Auto) 1.6 x10^3/uL (1.0-4.8) Monocytes # (Auto) 0.6 x10^3/uL (0.0-1.1) Eosinophils # (Auto) 0.4 x10^3/uL (0.0-0.7) Basophils # (Auto) 0.1 x10^3/uL (0.0-0.2) Prothrombin Time 23.0 SEC (11.7-14.0) 25.5 SEC (11.7-14.0) Prothromb Time International Ratio 2.1 (0.8-1.1) 2.3 (0.8-1.1) Sodium Level 144 mmol/L (136-145) Potassium Level 3.9 mmol/L (3.5-5.1) Chloride Level 106 mmol/L (98-107) Carbon Dioxide Level 29 mmol/L (21-32) Anion Gap 9 (6-14) Blood Urea Nitrogen 13 mg/dL (7-20) Creatinine 1.1 mg/dL (0.6-1.0) Estimated GFR (Cockcroft-Gault) 46.8 BUN/Creatinine Ratio 12 (6-20) Glucose Level 89 mg/dL (70-99) Calcium Level 9.1 mg/dL (8.5-10.1) Total Bilirubin 0.3 mg/dL (0.2-1.0) Aspartate Amino Transf (AST/SGOT) 15 U/L (15-37) Alanine Aminotransferase (ALT/SGPT) 15 U/L (14-59) Alkaline Phosphatase 111 U/L (46-116) Total Protein 7.7 g/dL (6.4-8.2) Albumin 3.6 g/dL (3.4-5.0) Albumin/Globulin Ratio 0.9 (1.0-1.7) Triglycerides Level 157 mg/dL (0-150) Cholesterol Level 133 mg/dL (0-200) LDL Cholesterol, Calculated 56 mg/dL (0-100) VLDL Cholesterol, Calculated 31 mg/dL (0-40) Non-HDL Cholesterol Calculated 87 mg/dL (0-129) HDL Cholesterol 46 mg/dL (40-60) Cholesterol/HDL Ratio 2.9 Laboratory Tests Test 12/31/18 05:40 Prothrombin Time 25.5 SEC (11.7-14.0) Prothromb Time International Ratio 2.3 (0.8-1.1) CHIKI ALVAREZ MD Dec 31, 2018 09:53
--- NOTE | 2018-12-31 09:54 | PDOC ---
PROGRESS NOTES Subjective Subjective back pain Objective Objective Vital Signs Date Time Temp Pulse Resp B/P (MAP) Pulse Ox O2 Delivery O2 Flow Rate FiO2 12/31/18 09:33 60 130/62 12/31/18 07:00 98.5 18 96 Nasal Cannula 2.0 98.5 Intake and Output 12/31/18 07:00 Intake Total 540 ml Output Total 930 ml Balance -390 ml Intake Oral 540 ml Output Urine Total 930 ml # Voids 2 Physical Exam Abdomen: Normal bowel sounds, Soft Heart: Regular rate, Normal S1, Normal S2 Extremities: No clubbing General: Alert HEENT: Atraumatic Lungs: Clear to auscultation MUSCULOSKELETAL: No deformity, Other Neck: Supple Neuro: Normal speech Psych/Mental Status: Mental status NL Skin: No breakdown Diagnosis Problem List Problems Medical Problems: (1) Anemia Status: Chronic (2) Atrial fibrillation Status: Chronic (3) Chest pain Status: Acute (4) CHF (congestive heart failure) Status: Acute (5) COPD (chronic obstructive pulmonary disease) Status: Chronic (6) COPD exacerbation Status: Acute (7) DJD (degenerative joint disease) Status: Chronic (8) Hypertension Status: Chronic Assessment Assessment Problems Medical Problems: (1) Anemia Status: Chronic (2) Atrial fibrillation Status: Chronic (3) Chest pain Status: Acute (4) CHF (congestive heart failure) Status: Acute (5) COPD (chronic obstructive pulmonary disease) Status: Chronic (6) DJD (degenerative joint disease) Status: Chronic (7) Hypertension Status: Chronic IMPRESSION: kidney mass complex 4 cm? 2 lung lesions /infiltrates.?? chest pain ? mid back and muscular . 1. Chest pain, ruled out coronary artery disease and myocardial infarction. 2. Atrial fibrillation rate controlled+ on coumadin inr 2.1 good. 3. Congestive heart failure. 4. Hypertension, accelerated. 5. Degenerative joint disease. 6. Chronic obstructive pulmonary disease. 7. History of diverticulosis. 8. Possible urinary tract infection. IV rocephin PLAN: oncology consult, spoke with dr Loya urology consult CT kidneys Continue Coumadin. Start her on IV Rocephin for now , urine c/s pending PT/OT rehab consult Plan Plan of Care Problems Medical Problems: (1) Anemia Status: Chronic (2) Atrial fibrillation Status: Chronic (3) Chest pain Status: Acute (4) CHF (congestive heart failure) Status: Acute (5) COPD (chronic obstructive pulmonary disease) Status: Chronic (6) COPD exacerbation Status: Acute (7) DJD (degenerative joint disease) Status: Chronic (8) Hypertension Status: Chronic Comment Review of Relevant I have reviewed the following items prakash (where applicable) has been applied. Labs Laboratory Tests Test 12/31/18 05:40 Prothrombin Time 25.5 SEC (11.7-14.0) Prothromb Time International Ratio 2.3 (0.8-1.1) Medications Current Medications Azithromycin (Zithromax) 250 mg 1X ONCE PO Last administered on 12/30/18 17:46; Start 12/30/18 at 16:30; Stop 12/30/18 at 16:31; Status DC Azithromycin (Zithromax) 250 mg DAILY PO Last administered on 12/31/18 09:33; Start 12/31/18 at 09:00 Lactobacillus Rhamnosus (Culturelle) 1 cap BID PO Last administered on 12/31/18 09:33; Start 12/30/18 at 21:00 Lidocaine (Lidoderm) 1 patch DAILY TD Last administered on 12/30/18at 10:37; Start 12/30/18 at 10:00 Miscellaneous (Lidoderm Patch Removal) 1 ea QHS MC Last administered on 12/30/18 22:13; Start 12/30/18 at 21:00 Nystatin (Nystop) 1 candida BID TP Last administered on 12/31/18 09:33; Start 12/30/18 at 11:00 Vitals/I & O Vital Sign - Last 24 Hours 12/30/18 12/30/18 12/30/18 12/30/18 10:29 10:37 11:00 15:00 Temp 97.7 98.5 97.7 98.5 Pulse 71 71 82 66 Resp 18 16 B/P (MAP) 139/64 139/64 155/68 (97) 146/63 (90) Pulse Ox 97 97 O2 Delivery Room Air Room Air 12/30/18 12/30/18 12/30/18 12/30/18 17:46 19:18 19:30 20:00 Temp 98.6 98.6 Pulse 66 74 Resp 20 B/P (MAP) 146/63 176/74 (108) Pulse Ox 97 98 O2 Delivery Nasal Cannula Nasal Cannula Nasal Cannula O2 Flow Rate 2.0 2.0 2.0 12/30/18 12/30/18 12/30/18 12/31/18 20:35 22:13 23:10 00:08 Temp 98.9 98.9 Pulse 66 66 Resp 18 B/P (MAP) 156/68 (97) 159/70 (99) Pulse Ox 98 93 93 O2 Delivery Nasal Cannula BiPAP/CPAP Nasal Cannula O2 Flow Rate 2.0 2.0 12/31/18 12/31/18 12/31/18 12/31/18 02:13 03:50 07:00 09:33 Temp 98.1 98.5 98.1 98.5 Pulse 60 60 60 Resp 18 B/P (MAP) 141/63 (89) 130/62 (84) 130/62 Pulse Ox 93 95 96 O2 Delivery Nasal Cannula Nasal Cannula Nasal Cannula O2 Flow Rate 2.0 2.0 2.0 12/31/18 09:33 Pulse 60 B/P (MAP) 130/62 Intake and Output 12/30/18 12/30/18 12/31/18 15:00 23:00 07:00 Intake Total 100 ml 120 ml 320 ml Output Total 350 ml 430 ml 150 ml Balance -250 ml -310 ml 170 ml JANES GRAVES MD Dec 31, 2018 09:54
[2018-12-31] MEDS ORDERED: IOHEXOL 300 MG/ML 100ML VIAL. IV ONE (10:00)
[2018-12-31] MEDS ORDERED: CONTRAST GIVEN. MC PRN (10:00)
--- NOTE | 2018-12-31 10:28 | PDOC ---
PROGRESS NOTES Subjective Subjective She admits continued low back pain and would like to have injection to her low back. Objective Objective Vital Signs Date Time Temp Pulse Resp B/P (MAP) Pulse Ox O2 Delivery O2 Flow Rate FiO2 12/31/18 09:33 60 130/62 12/31/18 07:00 98.5 18 96 Nasal Cannula 2.0 98.5 Intake and Output 12/31/18 07:00 Intake Total 540 ml Output Total 930 ml Balance -390 ml Intake Oral 540 ml Output Urine Total 930 ml # Voids 2 Physical Exam Physical Exam She is alert and is moving better and she had tenderness to palpation over sacroiliac joint area. Assessment Assessment Problems Medical Problems: (1) Anemia Status: Chronic (2) Atrial fibrillation Status: Chronic (3) Chest pain Status: Acute (4) CHF (congestive heart failure) Status: Acute (5) COPD (chronic obstructive pulmonary disease) Status: Chronic (6) COPD exacerbation Status: Acute (7) DJD (degenerative joint disease) Status: Chronic (8) Hypertension Status: Chronic Plan Plan of Care At her request, I have injected painful left sacroiliac joint area under aseptic skin technique with 2 ml of ) 0.25% marcaine solution mixed with 1 ml of methylp rednisone $0 mg? 1 ml solution and she tolerated the procedure satisfactorily without any side effects. Comment Review of Relevant I have reviewed the following items prakash (where applicable) has been applied. Labs Laboratory Tests Test 12/30/18 05:50 12/31/18 05:40 White Blood Count 9.0 x10^3/uL (4.0-11.0) Red Blood Count 5.09 x10^6/uL (3.50-5.40) Hemoglobin 10.4 g/dL (12.0-15.5) Hematocrit 34.7 % (36.0-47.0) Mean Corpuscular Volume 68 fL (79-100) Mean Corpuscular Hemoglobin 21 pg (25-35) Mean Corpuscular Hemoglobin Concent 30 g/dL (31-37) Red Cell Distribution Width 34.0 % (11.5-14.5) Platelet Count 274 x10^3/uL (140-400) Neutrophils (%) (Auto) 70 % (31-73) Lymphocytes (%) (Auto) 18 % (24-48) Monocytes (%) (Auto) 7 % (0-9) Eosinophils (%) (Auto) 4 % (0-3) Basophils (%) (Auto) 1 % (0-3) Neutrophils # (Auto) 6.3 x10^3/uL (1.8-7.7) Lymphocytes # (Auto) 1.6 x10^3/uL (1.0-4.8) Monocytes # (Auto) 0.6 x10^3/uL (0.0-1.1) Eosinophils # (Auto) 0.4 x10^3/uL (0.0-0.7) Basophils # (Auto) 0.1 x10^3/uL (0.0-0.2) Prothrombin Time 23.0 SEC (11.7-14.0) 25.5 SEC (11.7-14.0) Prothromb Time International Ratio 2.1 (0.8-1.1) 2.3 (0.8-1.1) Sodium Level 144 mmol/L (136-145) Potassium Level 3.9 mmol/L (3.5-5.1) Chloride Level 106 mmol/L (98-107) Carbon Dioxide Level 29 mmol/L (21-32) Anion Gap 9 (6-14) Blood Urea Nitrogen 13 mg/dL (7-20) Creatinine 1.1 mg/dL (0.6-1.0) Estimated GFR (Cockcroft-Gault) 46.8 BUN/Creatinine Ratio 12 (6-20) Glucose Level 89 mg/dL (70-99) Calcium Level 9.1 mg/dL (8.5-10.1) Total Bilirubin 0.3 mg/dL (0.2-1.0) Aspartate Amino Transf (AST/SGOT) 15 U/L (15-37) Alanine Aminotransferase (ALT/SGPT) 15 U/L (14-59) Alkaline Phosphatase 111 U/L (46-116) Total Protein 7.7 g/dL (6.4-8.2) Albumin 3.6 g/dL (3.4-5.0) Albumin/Globulin Ratio 0.9 (1.0-1.7) Triglycerides Level 157 mg/dL (0-150) Cholesterol Level 133 mg/dL (0-200) LDL Cholesterol, Calculated 56 mg/dL (0-100) VLDL Cholesterol, Calculated 31 mg/dL (0-40) Non-HDL Cholesterol Calculated 87 mg/dL (0-129) HDL Cholesterol 46 mg/dL (40-60) Cholesterol/HDL Ratio 2.9 Laboratory Tests Test 12/31/18 05:40 Prothrombin Time 25.5 SEC (11.7-14.0) Prothromb Time International Ratio 2.3 (0.8-1.1) Medications Current Medications Aspirin (Everardo Aspirin) 325 mg 1X ONCE PO ; Start 12/29/18 at 00:15; Stop 12/29/18 at 00:27; Status DC Labetalol HCl (Normodyne Iv Push) 10 mg 1X ONCE IVP Last administered on 12/29/18at 01:11; Start 12/29/18 at 01:00; Stop 12/29/18 at 01:01; Status DC Bumetanide (Bumex) 0.5 mg 1X ONCE IV Last administered on 12/29/18at 01:47; Start 12/29/18 at 01:15; Stop 12/29/18 at 01:16; Status DC Ondansetron HCl (Zofran) 4 mg PRN Q8HRS PRN IV NAUSEA/VOMITING Last administered on 12/29/18at 21:51; Start 12/29/18 at 01:00; Stop 12/30/18 at 00: 59; Status DC Fentanyl Citrate (Fentanyl 2ml Vial) 25 mcg PRN Q2HR PRN IV PAIN Last administered on 12/30/18at 07:30; Start 12/29/18 at 01:00; Stop 12/30/18 at 09:44; Status DC Aspirin (Ecotrin) 81 mg DAILY PO ; Start 12/29/18 at 09:15; Stop 12/29/18 at 12:36; Status DC Cyanocobalamin (Vitamin B-12) 1,000 mcg DAILY PO ; Start 12/29/18 at 09:15; Stop 12/29/18 at 11:42; Status DC Digoxin (Lanoxin) 125 mcg DAILY PO Last administered on 12/31/18at 09:33; Start 12/29/18 at 09:15 Ferrous Sulfate (Feosol) 325 mg BID PO ; Start 12/29/18 at 10:00; Stop 12/29/18 at 11:42; Status DC Furosemide (Lasix) 40 mg DAILY PO Last administered on 12/31/18 09:33; Start 12/29/18 at 09:15 Gabapentin (Neurontin) 300 mg TID PO Last administered on 12/31/18 09:33; Start 12/29/18 at 10:00 Levothyroxine Sodium (Synthroid) 175 mcg DAILYAC PO Last administered on 12/31/18 06:30; Start 12/29/18 at 09:15 Lisinopril (Prinivil) 40 mg DAILY PO Last administered on 12/31/18 09:33; Start 12/29/18 at 09:15 Mirtazapine (Remeron) 7.5 mg QHS PO Last administered on 12/30/18 20:25; Start 12/29/18 at 21:00 Oxycodone/ Acetaminophen (Percocet 10/325) 1 tab PRN Q8HRS PRN PO PAIN Last administered on 12/31/18 00:08; Start 12/29/18 at 09:15 Pantoprazole Sodium (Protonix) 40 mg DAILYAC PO Last administered on 12/31/18 06:30; Start 12/29/18 at 09:15 Potassium Chloride (Klor-Con) 20 meq DAILY16 PO Last administered on 12/30/18 17:46; Start 12/29/18 at 16:00 Ropinirole HCl (Requip) 0.25 mg BID PO Last administered on 12/31/18 09:33; Start 12/29/18 at 10:00 Warfarin Sodium (Coumadin) 2.5 mg DAILY16 PO Last administered on 12/30/18 17:46; Start 12/29/18 at 16:00 Diltiazem HCl (Cardizem 24hr Cd) 240 mg DAILYWSUP PO Last administered on 12/30/18 17:46; Start 12/29/18 at 17:00 Non-Formulary Medication (Melatonin ) 5 mg QHS PRN PO INSOMNIA; Start 12/29/18 at 09:15; Status UNV Fish Oil (Fish Oil) 1,000 mg DAILY PO Last administered on 12/31/18 09:33; Start 12/30/18 at 09:00 Hydralazine HCl (Apresoline Inj) 10 mg PRN Q4HRS PRN IVP FOR SBP > 160; Start 12/29/18 at 09:15 Acetaminophen (Tylenol) 650 mg PRN Q6HRS PRN PO MILD PAIN / TEMP; Start 12/29/18 at 09:15 Warfarin Sodium (Coumadin Per Pharmacy) 1 each PRN DAILY PRN MC SEE COMMENTS Last administered on 12/31/18 09:48; Start 12/29/18 at 09:15 Warfarin Sodium (Coumadin) 1 mg DAILY16 PO Last administered on 12/30/18 17:46; Start 12/29/18 at 16:00 Ceftriaxone Sodium (Rocephin) 1 gm Q24H IVP Last administered on 12/31/18 09:33; Start 12/29/18 at 10:00 Lidocaine (Lidoderm) 1 patch DAILY TD Last administered on 12/30/18 10:37; Start 12/30/18 at 10:00 Miscellaneous (Lidoderm Patch Removal) 1 ea QHS MC Last administered on 12/30/18 22:13; Start 12/30/18 at 21:00 Nystatin (Nystop) 1 candida BID TP Last administered on 12/31/18 09:33; Start 12/19 07/09 at 11:00 Lactobacillus Rhamnosus (Culturelle) 1 cap BID PO Last administered on 12/31/18 09:33; Start 12/30/18 at 21:00 Azithromycin (Zithromax) 250 mg 1X ONCE PO Last administered on 12/30/18 17:46; Start 12/30/18 at 16:30; Stop 12/30/18 at 16:31; Status DC Azithromycin (Zithromax) 250 mg DAILY PO Last administered on 12/31/18 09:33; Start 12/31/18 at 09:00 Iohexol (Omnipaque 300 Mg/ml) 60 ml 1X ONCE IV ; Start 12/31/18 at 10:00; Stop 12/31/18 at 10:01; Status DC Info (CONTRAST GIVEN -- Rx MONITORING) 1 each PRN DAILY PRN MC SEE COMMENTS; Start 12/31/18 at 10:00; Stop 01/02/19 at 09:59 Methylprednisolone Acetate (DEPO-Medrol 40MG VIAL) 40 mg 1X ONCE INJ ; Start 12/31/18 at 10:30; Stop 12/31/18 at 10:31 Active Scripts Active Reported Percocet 10-325 Mg Tablet (Oxycodone/Acetaminophen) 1 Each Tablet 1 Tab PO PRN Q8HRS PRN Requip (Ropinirole Hcl) 0.25 Mg Tablet 0.25 Mg PO BID Mirtazapine 15 Mg Tablet 7.5 Mg PO QHS Aspir 81 (Aspirin) 81 Mg Tablet. 1 Tab PO DAILY Matzim La (Diltiazem Hcl) 240 Mg Tab.er.24h 240 Mg PO DAILYWSUP Klor-Con M20 (Potassium Chloride) 20 Meq Tab.er.prt 20 Meq PO DAILY16 Lasix (Furosemide) 80 Mg Tablet 40 Mg PO DAILY Digoxin 125 Mcg Tablet 125 Mcg PO DAILY Protonix (Pantoprazole Sodium) 40 Mg Tablet.dr 40 Mg PO DAILY Levothyroxine Sodium 125 Mcg Tablet 175 Mcg PO DAILYAC Warfarin Sodium 5 Mg Tablet 3.5 Mg PO DAILY16 Neurontin (Gabapentin) 300 Mg Capsule 300 Mg PO TID Lisinopril 40 Mg Tablet 40 Mg PO DAILY Vitals/I & O Vital Sign - Last 24 Hours 12/30/18 12/30/18 12/30/18 12/30/18 10:29 10:37 11:00 15:00 Temp 97.7 98.5 97.7 98.5 Pulse 71 71 82 66 Resp 18 16 B/P (MAP) 139/64 139/64 155/68 (97) 146/63 (90) Pulse Ox 97 97 O2 Delivery Room Air Room Air 12/30/18 12/30/18 12/30/18 12/30/18 17:46 19:18 19:30 20:00 Temp 98.6 98.6 Pulse 66 74 Resp 20 B/P (MAP) 146/63 176/74 (108) Pulse Ox 97 98 O2 Delivery Nasal Cannula Nasal Cannula Nasal Cannula O2 Flow Rate 2.0 2.0 2.0 12/30/18 12/30/18 12/30/18 12/31/18 20:35 22:13 23:10 00:08 Temp 98.9 98.9 Pulse 66 66 Resp 20 18 18 B/P (MAP) 156/68 (97) 159/70 (99) Pulse Ox 98 93 93 O2 Delivery Nasal Cannula BiPAP/CPAP Nasal Cannula O2 Flow Rate 2.0 2.0 12/31/18 12/31/18 12/31/18/13/19 02:13 03:50 07:00 09:33 Temp 98.1 98.5 98.1 98.5 Pulse 60 60 60 Resp 22 18 18 B/P (MAP) 141/63 (89) 130/62 (84) 130/62 Pulse Ox 93 95 96 O2 Delivery Nasal Cannula Nasal Cannula Nasal Cannula O2 Flow Rate 2.0 2.0 2.0 12/31/18 09:33 Pulse 60 B/P (MAP) 130/62 Intake and Output 12/30/18 12/30/18 12/31/18 15:00 23:00 07:00 Intake Total 100 ml 120 ml 320 ml Output Total 350 ml 430 ml 150 ml Balance -250 ml -310 ml 170 ml MEG LUI MD Dec 31, 2018 10:28
[2018-12-31] MEDS ORDERED: methylPREDNISolone ACETATE 40 MG/ML VIAL. ONE (10:30)
[2018-12-31] MEDS ORDERED: BUPIVACAINE MPF 0.25% 10 ML VIAL. ONE (10:30)
[2018-12-31] MEDS ORDERED: methylPREDNISolone ACETATE 40 MG/ML VIAL. INJ ONE (10:30)
[2018-12-31 11:00] VITALS: BP 193/82
--- NOTE | 2018-12-31 11:01 | PDOC ---
OBJECTIVE Vital Signs Vital Signs Date Time Temp Pulse Resp B/P (MAP) Pulse Ox O2 Delivery O2 Flow Rate FiO2 12/31/18 09:33 60 130/62 12/31/18 09:33 60 130/62 12/31/18 07:00 98.5 60 18 130/62 (84) 96 Nasal Cannula 2.0 98.5 12/31/18 03:50 98.1 60 18 141/63 (89) 95 Nasal Cannula 2.0 98.1 12/31/18 02:13 22 93 Nasal Cannula 2.0 12/31/18 00:08 18 93 Nasal Cannula 2.0 12/30/18 23:10 98.9 66 18 159/70 (99) 93 BiPAP/CPAP 98.9 12/30/18 22:13 20 98 Nasal Cannula 2.0 12/30/18 20:35 66 156/68 (97) 12/30/18 20:00 Nasal Cannula 2.0 12/30/18 19:30 98.6 74 20 176/74 (108) 98 Nasal Cannula 2.0 98.6 12/30/18 19:18 97 Nasal Cannula 2.0 12/30/18 17:46 66 146/63 12/30/18 15:00 98.5 66 16 146/63 (90) 97 Room Air 98.5 I & O Intake and Output 12/31/18 07:00 Intake Total 540 ml Output Total 930 ml Balance -390 ml Intake Oral 540 ml Output Urine Total 930 ml # Voids 2 ASSESSMENT/PLAN Assessment/Plan Note entered in error. Please see consult note dated today COMMENT Lab Laboratory Tests Test 12/31/18 05:40 Prothrombin Time 25.5 SEC (11.7-14.0) Prothromb Time International Ratio 2.3 (0.8-1.1) ANNETTE ESTRADA APRN Dec 31, 2018 11:01
--- NOTE | 2018-12-31 11:46 | PDOC2 ---
ANNETTE ESTRADA CHECKMAN 12/31/18 1145: UROLOGY CONSULT Date of Consult Date of Consult DATE: 12/31/18 TIME: 11:25 Reason for Consult Reason for Consult: Kidney cysts Identification/Chief Complaint Chief Complaint Kidney cysts Source Source: Caregiver, Chart review, Patient History of Present Illness Reason for Visit: This 88 year old female was admitted to [facility] for complaints of chest pain and HTN. During the course of her hospitalization, imaging was done on her abdomen and pelvis and it was discovered that she had she had several kidney cysts. Patient does not remember her primary care or any other physicians telling her about these kidney lesions, but she did hear about them ON 12/[address] of the chest was done, followed by an Ultrasound. The daughter at bedside also believes this to be a "new" finding. She relates a history of chronic back pain, for which she has had seven surgeries. She does have pain 12/28 now all across her lower back, but it feels like her "normal pain" and is not necessarily any worse than what she does experience. She denies a history of kidney or bladder problems or cancer. She also denies dysuria or gross hematuria. Clinicians have found blood in her urine on dips in the past. She has had two UTI's over the past year, one several months ago cured by outpatient antibiotics, and another that they tried treating as an outpatient but apparently never went away because they found it in her urine when she was admitted here on 12/30. She feels like she empties her bladder well and usually does not have frequency, except for today after all of the medications they have been giving her. Past Medical History Cardiovascular: AFIB, CHF, HTN Pulmonary: COPD CENTRAL NERVOUS SYSTEM: TIA GI: GERD Psych: Depression Musculoskeletal: low back pain, Osteoarthritis Endocrine: Hypothyroidism Grav: 5 Para: 5 Past Surgical History Past Surgical History: Appendectomy, Total knee replacement, Tonsillectomy, Hysterectomy, Other Family History Family History: Family History Unknown Social History No ALCOHOL: none Drugs: None Lives: Alone Current Problem List Problems: (1) Kidney cysts Current Medications Current Medications Current Medications Azithromycin (Zithromax) 250 mg 1X ONCE PO Last administered on 12/30/18at 17:46; Start 12/30/18 at 16:30; Stop 12/30/18 at 16:31; Status DC Azithromycin (Zithromax) 250 mg DAILY PO Last administered on 12/31/18at 09:33; Start 12/31/18 at 09:00 Info (CONTRAST GIVEN -- Rx MONITORING) 1 each PRN DAILY PRN MC SEE COMMENTS; Start 12/31/18 at 10:00; Stop 01/02/19 at 09:59 Iohexol (Omnipaque 300 Mg/ml) 60 ml 1X ONCE IV Last administered on 12/31/18at 11:06; Start 12/31/18 at 10:00; Stop 12/31/18 at 10:01; Status DC Lactobacillus Rhamnosus (Culturelle) 1 cap BID PO Last administered on 12/31/18at 09:33; Start 12/30/18 at 21:00 Methylprednisolone Acetate (DEPO-Medrol 40MG VIAL) 40 mg 1X ONCE INJ ; Start 12/31/18 at 10:30; Stop 12/31/18 at 10:31; Status DC Miscellaneous (Lidoderm Patch Removal) 1 ea QHS MC Last administered on 12/30/18at 22:13; Start 12/30/18 at 21:00 Allergies Allergies: Coded Allergies: aspirin (Verified Allergy, Intermediate, 10/31/15) NSAIDS (Non-Steroidal Anti-Inflamma (Verified Allergy, Unknown, 12/29/18) morphine (Verified Adverse Reaction, Intermediate, confusion, 07/28/16) ROS Review Of Systems: CONSTITUTIONAL: No fever or chills EYES: No recent changes SKIN: No rash or itching CARDIOVASCULAR: No chest pain, syncope, palpitations, or edema RESPIRATORY: No SOB or cough GASTROINTESTINAL: No nausea, vomiting or abdominal pain NEUROLOGICAL: No headaches or weakness ENDOCRINE: No cold or heat intolerance GENITOURINARY: + Frequency of urination, no hematuria/dysuria MUSCULOSKELETAL: + chronic back pain LYMPHATICS: No enlarged lymph nodes PSYCHIATRIC: No anxiety or depression Physical Exam Physical Exam: General: Pleasant, no acute distress, well groomed Eyes: conjunctiva anicteric, eyes full range of motion ENT: moist oral mucosa, normal dentition Neck: Trachea midline, no masses Back: Bilateral CVA pain; (pt thinks from chronic back pain) Respiratory: unlabored breathing, not using accessory muscles, Abdomen: nontender, nondistended, no hepatosplenomegaly, no masses Skin: no rashes or skin lesions on visualized skin Psych: normal mood, affect. Alert and oriented x 3. Vitals VITALS Vital Signs Date Time Temp Pulse Resp B/P (MAP) Pulse Ox O2 Delivery O2 Flow Rate FiO2 12/31/18 09:33 60 130/62 12/31/18 07:00 98.5 18 96 Nasal Cannula 2.0 98.5 Labs Labs Laboratory Tests Test 12/30/18 05:50 12/31/18 05:40 White Blood Count 9.0 x10^3/uL (4.0-11.0) Red Blood Count 5.09 x10^6/uL (3.50-5.40) Hemoglobin 10.4 g/dL (12.0-15.5) Hematocrit 34.7 % (36.0-47.0) Mean Corpuscular Volume 68 fL (79-100) Mean Corpuscular Hemoglobin 21 pg (25-35) Mean Corpuscular Hemoglobin Concent 30 g/dL (31-37) Red Cell Distribution Width 34.0 % (11.5-14.5) Platelet Count 274 x10^3/uL (140-400) Neutrophils (%) (Auto) 70 % (31-73) Lymphocytes (%) (Auto) 18 % (24-48) Monocytes (%) (Auto) 7 % (0-9) Eosinophils (%) (Auto) 4 % (0-3) Basophils (%) (Auto) 1 % (0-3) Neutrophils # (Auto) 6.3 x10^3/uL (1.8-7.7) Lymphocytes # (Auto) 1.6 x10^3/uL (1.0-4.8) Monocytes # (Auto) 0.6 x10^3/uL (0.0-1.1) Eosinophils # (Auto) 0.4 x10^3/uL (0.0-0.7) Basophils # (Auto) 0.1 x10^3/uL (0.0-0.2) Prothrombin Time 23.0 SEC (11.7-14.0) 25.5 SEC (11.7-14.0) Prothromb Time International Ratio 2.1 (0.8-1.1) 2.3 (0.8-1.1) Sodium Level 144 mmol/L (136-145) Potassium Level 3.9 mmol/L (3.5-5.1) Chloride Level 106 mmol/L (98-107) Carbon Dioxide Level 29 mmol/L (21-32) Anion Gap 9 (6-14) Blood Urea Nitrogen 13 mg/dL (7-20) Creatinine 1.1 mg/dL (0.6-1.0) Estimated GFR (Cockcroft-Gault) 46.8 BUN/Creatinine Ratio 12 (6-20) Glucose Level 89 mg/dL (70-99) Calcium Level 9.1 mg/dL (8.5-10.1) Total Bilirubin 0.3 mg/dL (0.2-1.0) Aspartate Amino Transf (AST/SGOT) 15 U/L (15-37) Alanine Aminotransferase (ALT/SGPT) 15 U/L (14-59) Alkaline Phosphatase 111 U/L (46-116) Total Protein 7.7 g/dL (6.4-8.2) Albumin 3.6 g/dL (3.4-5.0) Albumin/Globulin Ratio 0.9 (1.0-1.7) Triglycerides Level 157 mg/dL (0-150) Cholesterol Level 133 mg/dL (0-200) LDL Cholesterol, Calculated 56 mg/dL (0-100) VLDL Cholesterol, Calculated 31 mg/dL (0-40) Non-HDL Cholesterol Calculated 87 mg/dL (0-129) HDL Cholesterol 46 mg/dL (40-60) Cholesterol/HDL Ratio 2.9 Laboratory Tests Test 12/31/18 05:40 Prothrombin Time 25.5 SEC (11.7-14.0) Prothromb Time International Ratio 2.3 (0.8-1.1) Images Images Renal US Impression: Complex appearing cystic structures identified in the right and left kidneys with the largest measuring 4.9 cm on the right and 1.8 cm in the left kidney. If clinically possible recommend CT urogram for further evaluation. If CT contrast cannot be given recommend MRI for further evaluation. CT chest: IMPRESSION: 1. 2 consolidative areas are identified in the right lower lobe and right middle lobe which may represent multifocal pneumonia. Neoplastic etiology remains a differential consideration and 3 month follow-up chest CT may be of benefit to ensure resolution. 2. Groundglass nodule in the left upper lobe measures 13 mm, not significantly changed dating back to June 04, 2013. Additional two-year follow-up chest CT may be of benefit to assess stability. 3. Multifocal compression deformities are identified involving the thoracic spine predominantly appear stable and likely chronic. If there is persistent clinical concern, further evaluation with MRI may be of benefit. 4. Superior pole right renal lesion measures 4.3 x 2.7 cm, new from the prior examination. High attenuation may reflect a cyst, a by hemorrhage or protein although a solid renal lesion may have similar appearance. Renal mass protocol CT versus ultrasound may be of benefit for further evaluation. Assessment/Plan Assessment/Plan Patient does not remember providers telling her about kidney cysts. However, imaging records date back to 12/09/2013 of providers following her for these cysts. There has been an increase in growth of the cyst within the right kidney and also within the left, comparatively speaking Pain not related to cysts; related to chronic back problems Pt has had two UTI's over the past year. To evaluate for incomplete bladder emptying vs retention, Please have patient void and then bladder scan her directly afterward. If PVR is less than 350, leave Vázquez out and encourage voiding. If greater than 350, please insert Vázquez catheter and record initial amount=Orders Entered. Continue antibiotics for UTI per medical team. Pt will proceed for CTU today. Dr. Hameed to round on patient later. JOSE HAMEED MD 12/31/18 1224: UROLOGY CONSULT Assessment/Plan Assessment/Plan I have seen patient and reviewed records. I agree with imaging kidney now. There are several previous imaging studies for comparison. ANNETTE ESTRADA APRN Dec 31, 2018 11:45 JOSE HAMEED MD Dec 31, 2018 12:24
--- NOTE | 2018-12-31 12:08 | NUR ---
SS following up with discharge planning. PT/OT recommended home healthcare at discharge. SS contacted pt's family and discussed. Pt's family reported that they were previously on service with a home healthcare company and would provide SS with the name closer to discharge. SS will continue to follow for discharge planning.
--- NOTE | 2018-12-31 13:41 | PDOC ---
PULMONARY PROGRESS NOTES Subjective PT FEELS BETTER LESS SOA NO CHEST PAIN Vitals Vital Signs Date Time Temp Pulse Resp B/P (MAP) Pulse Ox O2 Delivery O2 Flow Rate FiO2 12/31/18 11:00 98.1 62 18 193/82 (119) 98 Nasal Cannula 2.0 98.1 ROS: No Nausea, No Chest Pain, No Abdominal Pain, No Increase Cough General: Oriented X4 Lungs: Crackles Cardiovascular: S1, S2 Abdomen: Soft, Non-tender Neuro Exam: Alert Extremities: Other (MILD EDEMA) Skin: Warm Labs Laboratory Tests Test 12/30/18 05:50 12/31/18 05:40 White Blood Count 9.0 x10^3/uL (4.0-11.0) Red Blood Count 5.09 x10^6/uL (3.50-5.40) Hemoglobin 10.4 g/dL (12.0-15.5) Hematocrit 34.7 % (36.0-47.0) Mean Corpuscular Volume 68 fL (79-100) Mean Corpuscular Hemoglobin 21 pg (25-35) Mean Corpuscular Hemoglobin Concent 30 g/dL (31-37) Red Cell Distribution Width 34.0 % (11.5-14.5) Platelet Count 274 x10^3/uL (140-400) Neutrophils (%) (Auto) 70 % (31-73) Lymphocytes (%) (Auto) 18 % (24-48) Monocytes (%) (Auto) 7 % (0-9) Eosinophils (%) (Auto) 4 % (0-3) Basophils (%) (Auto) 1 % (0-3) Neutrophils # (Auto) 6.3 x10^3/uL (1.8-7.7) Lymphocytes # (Auto) 1.6 x10^3/uL (1.0-4.8) Monocytes # (Auto) 0.6 x10^3/uL (0.0-1.1) Eosinophils # (Auto) 0.4 x10^3/uL (0.0-0.7) Basophils # (Auto) 0.1 x10^3/uL (0.0-0.2) Prothrombin Time 23.0 SEC (11.7-14.0) 25.5 SEC (11.7-14.0) Prothromb Time International Ratio 2.1 (0.8-1.1) 2.3 (0.8-1.1) Sodium Level 144 mmol/L (136-145) Potassium Level 3.9 mmol/L (3.5-5.1) Chloride Level 106 mmol/L (98-107) Carbon Dioxide Level 29 mmol/L (21-32) Anion Gap 9 (6-14) Blood Urea Nitrogen 13 mg/dL (7-20) Creatinine 1.1 mg/dL (0.6-1.0) Estimated GFR (Cockcroft-Gault) 46.8 BUN/Creatinine Ratio 12 (6-20) Glucose Level 89 mg/dL (70-99) Calcium Level 9.1 mg/dL (8.5-10.1) Total Bilirubin 0.3 mg/dL (0.2-1.0) Aspartate Amino Transf (AST/SGOT) 15 U/L (15-37) Alanine Aminotransferase (ALT/SGPT) 15 U/L (14-59) Alkaline Phosphatase 111 U/L (46-116) Total Protein 7.7 g/dL (6.4-8.2) Albumin 3.6 g/dL (3.4-5.0) Albumin/Globulin Ratio 0.9 (1.0-1.7) Triglycerides Level 157 mg/dL (0-150) Cholesterol Level 133 mg/dL (0-200) LDL Cholesterol, Calculated 56 mg/dL (0-100) VLDL Cholesterol, Calculated 31 mg/dL (0-40) Non-HDL Cholesterol Calculated 87 mg/dL (0-129) HDL Cholesterol 46 mg/dL (40-60) Cholesterol/HDL Ratio 2.9 Laboratory Tests Test 12/31/18 05:40 Prothrombin Time 25.5 SEC (11.7-14.0) Prothromb Time International Ratio 2.3 (0.8-1.1) Medications Active Scripts Medications Dose Route/Sig Max Daily Dose Days Date Category Percocet 10-325 Mg Tablet (Oxycodone/Acetaminophen) 1 Each Tablet 1 Tab PO PRN Q8HRS PRN 12/29/18 Reported Requip (Ropinirole Hcl) 0.25 Mg Tablet 0.25 Mg PO BID 12/29/18 Reported Mirtazapine 15 Mg Tablet 7.5 Mg PO QHS 12/29/18 Reported Aspir 81 (Aspirin) 81 Mg Tablet.dr 1 Tab PO DAILY 10/06/16 Reported Matzim La (Diltiazem Hcl) 240 Mg Tab.er.24h 240 Mg PO DAILYWSUP 10/05/16 Reported Klor-Con M20 (Potassium Chloride) 20 Meq Tab.er.prt 20 Meq PO DAILY16 10/19/13 Reported Lasix (Furosemide) 80 Mg Tablet 40 Mg PO DAILY 10/19/13 Reported Digoxin 125 Mcg Tablet 125 Mcg PO DAILY 10/19/13 Reported Protonix (Pantoprazole Sodium) 40 Mg Tablet.dr 40 Mg PO DAILY 10/19/13 Reported Levothyroxine Sodium 125 Mcg Tablet 175 Mcg PO DAILYAC 10/19/13 Reported Warfarin Sodium 5 Mg Tablet 3.5 Mg PO DAILY16 06/30/13 Reported Neurontin (Gabapentin) 300 Mg Capsule 300 Mg PO TID 06/30/13 Reported Lisinopril 40 Mg Tablet 40 Mg PO DAILY 06/30/13 Reported Impression . IMPRESSION: 1. Abnormal CT chest revealing right middle lobe and right lower lobe consolidation. 2. Ground ground-glass opacity of the left upper lobe, present back in 2013. 3. Suspect gram-negative, possibly gram-positive pneumonia. 4. Renal mass seen on CT chest. We will defer to primary care physician for further evaluation. 5. Chest pain per Cardiology. 6. Chronic anemia. 7. Acute exacerbation of chronic obstructive pulmonary disease. 8. Acute on chronic diastolic heart failure. 9. Accelerated hypertension. 10. Degenerative joint disease. 11. Chronic atrial fibrillation. Plan . CASE D/W DR GRAVES I THINK PULMONARY FINDINGS ARE INFECTIOUS OR INFLAMMATORY IN NATURE WITH THAT BEING SAID SHE NEEDS FOLLOW UP TO RULE OUT CA 1. O2 supplementation. 2. Antibiotics. 3. Repeat CT chest in 2 months. 4. Follow Cardiology input. 5. We will defer further workup of the renal mass to PCP. ELLYN JORGENSEN MD Dec 31, 2018 13:41
[2018-12-31 15:00] VITALS: BP 149/52
[2018-12-31] MEDS: POTASSIUM CHLORIDE 20 MEQ TABLET.ER. PO SCH (15:03)
[2018-12-31] MEDS: WARFARIN 1 MG TABLET. PO SCH (15:04)
[2018-12-31] MEDS: WARFARIN 2.5 MG TABLET. PO SCH (15:04)
--- NOTE | 2018-12-31 17:17 | RAD ---
CT study of the abdomen and pelvis with and without contrast-CT urogram Clinical indications: Right kidney mass. TECHNIQUE: Noncontrast helical CT scanning of the abdomen and pelvis was performed. Following IV infusion of 60 cc of Omnipaque 300, repeat helical CT scanning of the abdomen and pelvis was performed using the CT urogram protocol. No GI contrast was administered. This may decrease the sensitivity to detect GI tract pathology. PQRS compliance Statement One or more of the following individualized dose reduction techniques were utilized for this study: 1. Automated exposure control 2. Adjustment of the mA and/or kV according to patient size 3. Use of iterative reconstruction technique FINDINGS: The liver and spleen are unremarkable. The spleen measures 12.2 cm in length. No focal pancreatic enlargement is seen. The gallbladder is normal and no extrahepatic biliary ductal dilatation is seen. No adrenal mass is evident. No focal aneurysmal dilatation of the abdominal aorta is seen. No enlarged abdominal or pelvic lymphadenopathy is evident. Colonic diverticulosis is seen without diverticulitis. No obstructive bowel pattern is evident. No free air or free fluid or mesenteric edema is evident. Nodular lateral right lung base infiltrate is seen and this was seen on chest CT dated December 30, 2018. No lytic process is seen. Compression fractures of T10 and T12 and L2 are seen. These were seen on the previous chest CT. There is a nonenhancing hyperdense mass of the lateral aspect of the mid to upper aspect of the right kidney which corresponds to the renal sonogram finding. Given the lack of enhancement with Hounsfield unit measurement of 58, this is consistent with a hyperdense cyst. This appears more complex by ultrasound. This measures 4.6 cm in greatest dimension. Smaller right renal cysts are seen. Small cysts of the anterior upper pole and lateral mid aspect of the left kidney are seen. There is mild bilateral perinephric inflammatory stranding. Nonobstructing punctate stone of the lower pole of the left kidney is seen. No hydronephrosis or hydroureter is evident. There is incomplete opacification of the ureters bilaterally. No filling defect of either renal collecting system is seen. Urinary bladder wall is smooth and no filling defects are seen. IMPRESSION: Bilateral renal cysts. There is a hyperdense mass of the mid to upper aspect of the right kidney which corresponds to the complex cystic lesion seen by renal sonography dated December 30, 2018. This does not enhance consistent with a complex hyperdense cyst. This may be followed sonographically in 6 months therefore. Nonobstructing stone of the left kidney. No hydronephrosis or hydroureter. Electronically signed by: Dennis Frazier MD (12/31/2018 5:14 PM) [facility]
--- NOTE | 2018-12-31 17:44 | NUR ---
HYDROCODONE SCANNED THIS SHIFT AT APPROX 1504 HOWEVER DID NOT SAVE IN THE SYSTEM. HAD TO MANUALLY ADMINISTER.
[2018-12-31 19:50] VITALS: BP 149/67
[2018-12-31] MEDS: PATCH REMOVAL. MC SCH (21:00)
[2018-12-31] MEDS: MIRTAZAPINE 15 MG TABLET PO SCH (21:43)
[2018-12-31 23:00] VITALS: BP 164/72
[2019-01-01 00:01] VITALS: BP 132/82
[2019-01-01 03:15] VITALS: BP 151/64
[2019-01-01 05:07] LABS: PROTHROMBIN TIME PATIENT 26.5 SEC (11.7-14.0)
[2019-01-01] MEDS: PANTOPRAZOLE 40 MG TABLET.DR. PO SCH (05:59)
[2019-01-01] MEDS: LEVOTHYROXINE 175 MCG TABLET PO SCH (05:59)
[2019-01-01 07:00] VITALS: BP 203/86
--- NOTE | 2019-01-01 08:38 | PDOC ---
PULMONARY PROGRESS NOTES Subjective PT FEELS BETTER LESS SOA NO CHEST PAIN Vitals Vital Signs Date Time Temp Pulse Resp B/P (MAP) Pulse Ox O2 Delivery O2 Flow Rate FiO2 01/01/19 07:00 98.2 86 18 203/86 (125) 94 Room Air 98.2 12/31/18 17:42 2.0 ROS: No Nausea, No Chest Pain, No Abdominal Pain, No Increase Cough General: Oriented X4 Lungs: Crackles Cardiovascular: S1, S2 Abdomen: Soft, Non-tender Neuro Exam: Alert Extremities: Other (MILD EDEMA) Skin: Warm Labs Laboratory Tests Test 12/31/18 05:40 01/01/19 04:30 Prothrombin Time 25.5 SEC (11.7-14.0) 26.5 SEC (11.7-14.0) Prothromb Time International Ratio 2.3 (0.8-1.1) 2.5 (0.8-1.1) Laboratory Tests Test 01/01/19 04:30 Prothrombin Time 26.5 SEC (11.7-14.0) Prothromb Time International Ratio 2.5 (0.8-1.1) Medications Active Scripts Medications Dose Route/Sig Max Daily Dose Days Date Category Percocet 10-325 Mg Tablet (Oxycodone/Acetaminophen) 1 Each Tablet 1 Tab PO PRN Q8HRS PRN 12/29/18 Reported Requip (Ropinirole Hcl) 0.25 Mg Tablet 0.25 Mg PO BID 12/29/18 Reported Mirtazapine 15 Mg Tablet 7.5 Mg PO QHS 12/29/18 Reported Aspir 81 (Aspirin) 81 Mg Tablet.dr 1 Tab PO DAILY 10/06/16 Reported Matzim La (Diltiazem Hcl) 240 Mg Tab.er.24h 240 Mg PO DAILYWSUP 10/05/16 Reported Klor-Con M20 (Potassium Chloride) 20 Meq Tab.er.prt 20 Meq PO DAILY16 10/19/13 Reported Lasix (Furosemide) 80 Mg Tablet 40 Mg PO DAILY 10/19/13 Reported Digoxin 125 Mcg Tablet 125 Mcg PO DAILY 10/19/13 Reported Protonix (Pantoprazole Sodium) 40 Mg Tablet.dr 40 Mg PO DAILY 10/19/13 Reported Levothyroxine Sodium 125 Mcg Tablet 175 Mcg PO DAILYAC 10/19/13 Reported Warfarin Sodium 5 Mg Tablet 3.5 Mg PO DAILY16 06/30/13 Reported Neurontin (Gabapentin) 300 Mg Capsule 300 Mg PO TID 06/30/13 Reported Lisinopril 40 Mg Tablet 40 Mg PO DAILY 06/30/13 Reported Impression . IMPRESSION: 1. Abnormal CT chest revealing right middle lobe and right lower lobe consolidation. 2. Ground ground-glass opacity of the left upper lobe, present back in 2013. 3. Suspect gram-negative, possibly gram-positive pneumonia. 4. Renal mass seen on CT chest. We will defer to primary care physician for further evaluation. 5. Chest pain per Cardiology. 6. Chronic anemia. 7. Acute exacerbation of chronic obstructive pulmonary disease. 8. Acute on chronic diastolic heart failure. 9. Accelerated hypertension. 10. Degenerative joint disease. 11. Chronic atrial fibrillation. Plan . CASE D/W DR GRAVES I THINK PULMONARY FINDINGS ARE INFECTIOUS OR INFLAMMATORY IN NATURE WITH THAT BEING SAID SHE NEEDS FOLLOW UP TO RULE OUT CA 1. O2 supplementation. 2. Antibiotics. 3. Repeat CT chest in 2 months. 4. Follow Cardiology input. 5. We will defer further workup of the renal mass to PCP. ELLYN JORGENSEN MD Jan 01, 2019 08:38
[2019-01-01] MEDS: LISINOPRIL 20 MG TABLET PO SCH (08:56)
[2019-01-01] MEDS: OMEGA-3 FATTY ACIDS/FISH OIL 1,000 MG CAPSULE. PO SCH (08:56)
[2019-01-01] MEDS: rOPINIRole 0.25 MG TABLET. PO SCH (08:56)
[2019-01-01] MEDS: LACTOBACILLUS RHAMNOSUS GG 1 CAPSULE. PO SCH (08:57)
[2019-01-01] MEDS: AZITHROMYCIN 250 MG TABLET. PO SCH (08:57)
[2019-01-01] MEDS: FUROSEMIDE 40 MG TABLET. PO SCH (08:57)
[2019-01-01] MEDS: DIGOXIN 125 MCG TABLET. PO SCH (08:57)
[2019-01-01] MEDS: oxyCODONE/APAP 10/325 1 TAB TABLET PO PRN (08:58)
[2019-01-01] MEDS: cefTRIAXone IV Push 1 GM VIAL. IVP SCH (08:59)
[2019-01-01] MEDS: NYSTATIN TOPICAL POWDER 15GM BOTTLE. TP SCH (08:59)
[2019-01-01] MEDS: LIDOCAINE (700MG/PATCH) PATCH. TD SCH (09:00)
[2019-01-01] MEDS: GABAPENTIN 300 MG CAPSULE. PO SCH ×2 (09:00→15:03)
--- NOTE | 2019-01-01 09:28 | PDOC ---
SUBJECTIVE Subjective S: Hurts from her waist down, pain did not get worse after injection but not sure that it's better, CT urogram showed known enhancing right complex hyperdense cyst and recommended follow-up ultrasound in 6 months O: Physical exam: Gen.: Well-nourished and well-developed, resting in bed Psychiatric: Pleasant mood and affect Labs: INR 2.5 Rads: CT urogram showed bilateral renal cyst, right nonenhancing complex hyperdense cyst, recommend follow-up ultrasound in 6 months Assessment and Plan: She is an 88-year-old female with admission for chest pain improved, as well as treatment for right lung consolidation and possible UTI with renal cysts Right lung consolidation: On antibiotics, pulmonary is involved, will likely get CT in 2 months and follow-up with pulmonary Possible UTI: On antibiotics Kidney mass: CT urogram reassuring, recommend follow-up ultrasound in 6 months, interestingly she did have an erythropoietin level that was elevated at 76, June 2018 Iron deficient anemia: She completed IV iron outpatient 27 December, can repeat as needed, would recheck labs in about a month, she can follow-up with Dr. Villagran for this as needed, can also consider outpatient GI eval due to the iron deficient anemia Left upper lobe pulmonary nodule: can be followed with CTs prn disposition: After continued clinical improvement, we can arrange follow-up with Dr. Villagran after discharge as needed Thank you kindly and please do not hesitate to call with questions. OBJECTIVE Vital Signs Vital Signs Date Time Temp Pulse Resp B/P (MAP) Pulse Ox O2 Delivery O2 Flow Rate FiO2 01/01/19 09:00 Room Air 01/01/19 09:00 86 203/86 01/01/19 08:59 86 203/86 01/01/19 07:00 98.2 86 18 203/86 (125) 94 Room Air 98.2 01/01/19 03:15 97.9 70 18 151/64 (93) 93 Room Air 97.9 01/01/19 00:01 69 132/82 (99) 12/31/18 23:00 98.5 64 18 164/72 (102) 93 Room Air 98.5 12/31/18 20:00 Room Air 12/31/18 19:50 98.9 64 20 149/67 (94) 93 Room Air 98.9 12/31/18 17:42 95 Nasal Cannula 2.0 8/13/19 17:41 Room Air 12/31/18 17:37 73 149/52 12/31/18 15:00 98.9 73 18 149/52 (84) 95 Room Air 98.9 12/31/18 11:00 98.1 62 18 193/82 (119) 98 Nasal Cannula 2.0 98.1 12/31/18 09:33 60 130/62 12/31/18 09:33 60 130/62 I & O Intake and Output 01/01/19 06:59 Intake Total 400 ml Output Total 800 ml Balance -400 ml Intake Oral 400 ml Output Urine Total 800 ml # Voids 3 # Bowel Movements 1 COMMENT Lab Laboratory Tests Test 01/01/19 04:30 Prothrombin Time 26.5 SEC (11.7-14.0) Prothromb Time International Ratio 2.5 (0.8-1.1) CHIKI WINSTON MD Jan 01, 2019 09:27
--- NOTE | 2019-01-01 09:32 | NUR ---
ELZBIETA following pt. Spoke with pt's daughter, Freddy via phone about SNU options. [facility] reports pt is agreeable with it. ELZBIETA phoned and faxed referral to [facility]. Pt acceptance and admission pending. Will continue to follow. Discussed with RN. Addendum: 01/01/19 at 1106 by CRISTINA RUFF Disregard above note. Entered on Wrong Pt.
--- NOTE | 2019-01-01 10:13 | PDOC ---
PROGRESS NOTES Subjective Subjective feels better Objective Objective Vital Signs Date Time Temp Pulse Resp B/P (MAP) Pulse Ox O2 Delivery O2 Flow Rate FiO2 01/01/19 09:00 Room Air 01/01/19 09:00 86 203/86 01/01/19 07:00 98.2 18 94 98.2 12/31/18 17:42 2.0 Intake and Output 01/01/19 06:59 Intake Total 400 ml Output Total 800 ml Balance -400 ml Intake Oral 400 ml Output Urine Total 800 ml # Voids 3 # Bowel Movements 1 Physical Exam Abdomen: Normal bowel sounds, Soft Heart: Regular rate, Normal S1, Normal S2 Extremities: No clubbing General: Alert HEENT: Atraumatic Lungs: Clear to auscultation MUSCULOSKELETAL: No deformity, Other Neck: Supple Neuro: Normal speech Psych/Mental Status: Mental status NL Skin: No breakdown Diagnosis Problem List Problems Medical Problems: (1) Anemia Status: Chronic (2) Atrial fibrillation Status: Chronic (3) Chest pain Status: Acute (4) CHF (congestive heart failure) Status: Acute (5) COPD (chronic obstructive pulmonary disease) Status: Chronic (6) COPD exacerbation Status: Acute (7) DJD (degenerative joint disease) Status: Chronic (8) Hypertension Status: Chronic Assessment Assessment Problems Medical Problems: (1) Anemia Status: Chronic (2) Atrial fibrillation Status: Chronic (3) Chest pain Status: Acute (4) CHF (congestive heart failure) Status: Acute (5) COPD (chronic obstructive pulmonary disease) Status: Chronic (6) DJD (degenerative joint disease) Status: Chronic (7) Hypertension Status: Chronic IMPRESSION: kidney mass complex cyst 2 lung lesions /infiltrates.?Pneumonia chest pain ? mid back and muscular . 1. Chest pain, ruled out coronary artery disease and myocardial infarction. 2. Atrial fibrillation rate controlled+ on coumadin inr 2.1 good. 3. Congestive heart failure. 4. Hypertension, accelerated. 5. Degenerative joint disease. 6. Chronic obstructive pulmonary disease. 7. History of diverticulosis. 8. Possible urinary tract infection. IV rocephin PLAN: d/c to snu/home . po antibiotics for pneumonia oncology consult, spoke with dr Loya urology consult CT kidneys complex cyst Continue Coumadin. urine c/s mixed manuela PT/OT rehab consult Plan Plan of Care Problems Medical Problems: (1) Anemia Status: Chronic (2) Atrial fibrillation Status: Chronic (3) Chest pain Status: Acute (4) CHF (congestive heart failure) Status: Acute (5) COPD (chronic obstructive pulmonary disease) Status: Chronic (6) COPD exacerbation Status: Acute (7) DJD (degenerative joint disease) Status: Chronic (8) Hypertension Status: Chronic Comment Review of Relevant I have reviewed the following items prakash (where applicable) has been applied. Labs Laboratory Tests Test 01/01/19 04:30 Prothrombin Time 26.5 SEC (11.7-14.0) Prothromb Time International Ratio 2.5 (0.8-1.1) Microbiology 12/29/18 Urine Culture - Final, Complete 12/29/18 Urine Culture Result 1 (ARACELI) - Final, Complete Medications Current Medications Methylprednisolone Acetate (DEPO-Medrol 40MG VIAL) 40 mg 1X ONCE INJ ; Start 12/31/18 at 10:30; Stop 12/31/18 at 10:31; Status DC Vitals/I & O Vital Sign - Last 24 Hours 12/31/18 12/31/18 12/31/18 12/31/18 11:00 15:00 17:37 17:41 Temp 98.1 98.9 98.1 98.9 Pulse 62 73 73 Resp 18 18 B/P (MAP) 193/82 (119) 149/52 (84) 149/52 Pulse Ox 98 95 O2 Delivery Nasal Cannula Room Air Room Air O2 Flow Rate 2.0 12/31/18 12/31/18 12/31/18 12/31/18 17:42 19:50 20:00 23:00 Temp 98.9 98.5 98.9 98.5 Pulse 64 64 Resp 20 18 B/P (MAP) 149/67 (94) 164/72 (102) Pulse Ox 95 93 93 O2 Delivery Nasal Cannula Room Air Room Air Room Air O2 Flow Rate 2.0 01/01/19 01/01/19 01/01/19 01/01/19 00:01 03:15 07:00 08:59 Temp 97.9 98.2 97.9 98.2 Pulse 69 70 86 86 Resp 18 18 B/P (MAP) 132/82 (99) 151/64 (93) 203/86 (125) 203/86 Pulse Ox 93 94 O2 Delivery Room Air Room Air 01/01/19 01/01/19 09:00 09:00 Pulse 86 B/P (MAP) 203/86 O2 Delivery Room Air Intake and Output 12/31/18 12/31/18 01/01/19 14:59 22:59 06:59 Intake Total 200 ml 200 ml Output Total 200 ml 200 ml 400 ml Balance 0 ml 0 ml -400 ml JANES GRAVES MD Jan 01, 2019 10:13
[2019-01-01] MEDS ORDERED: AZIT250T6 PO (10:18)
[2019-01-01] MEDS ORDERED: LIDO700A21 TD (10:18)
--- NOTE | 2019-01-01 10:21 | SNU/HH DC ---
DISCHARGE ORDERS DISCHARGE INFORMATION: DISCHARGE DATE: Jan 01, 2019 FINAL DIAGNOSIS Problems Medical Problems: (1) Anemia Status: Chronic (2) Atrial fibrillation Status: Chronic (3) Chest pain Status: Acute (4) CHF (congestive heart failure) Status: Acute (5) COPD (chronic obstructive pulmonary disease) Status: Chronic (6) COPD exacerbation Status: Acute (7) DJD (degenerative joint disease) Status: Chronic (8) Hypertension Status: Chronic CONDITION ON DISCHARGE: Stable CODE STATUS: Code Status: Full ALF: SNF STAY <30 DAYS: Yes POST DISCHARGE ORDERS: ACTIVITY ORDERS: Activity as tolerated WEIGHT BEARING STATUS: As tolerated DIET AFTER DISCHARGE: Cardiac WOUND/INCISION CARE: Ice to area for comfort CHECKS AFTER DISCHARGE: CHECKS AFTER DISCHARGE: Check blood sugar, ac/hs TREATMENT/EQUIPMENT ORDERS: ADAPTIVE EQUIPMENT NEEDED: Walker, Wheelchair Physical Therapy For: Evalulation/Treatment DISCHARGE MEDICATIONS: Home Meds Active Scripts Lidocaine (Lidocaine PATCH ) 1 Each Adh..patch, 1 PATCH TD DAILY for pain for 30 Days, #30 PATCH Prov:JANES GRAVES MD 01/01/19 Azithromycin (AZITHROMYCIN TABLET) 250 Mg Tablet, 250 MG PO DAILY for pneumonia for 5 Days, #5 TAB Prov:JANES GRAVES MD 01/01/19 Reported Medications Oxycodone/Apap 10-325 (PERCOCET 10-325 MG TABLET ) 1 Each Tablet, 1 TAB PO PRN Q8HRS PRN for PAIN, TAB 0 Refills 12/29/18 Ropinirole Hcl (REQUIP) 0.25 Mg Tablet, 0.25 MG PO BID, TAB 12/29/18 Mirtazapine (MIRTAZAPINE) 15 Mg Tablet, 7.5 MG PO QHS, TAB 12/29/18 Aspirin (ASPIR 81) 81 Mg Tablet.dr, 1 TAB PO DAILY, #30 TAB 5 Refills 10/06/16 Diltiazem Hcl (MATZIM LA) 240 Mg Tab.er.24h, 240 MG PO DAILYWSUP, TAB.SR 10/05/16 Potassium Chloride (KLOR-CON M20) 20 Meq Tab.er.prt, 20 MEQ PO DAILY16 10/19/13 Furosemide (LASIX) 80 Mg Tablet, 40 MG PO DAILY, TAB 10/19/13 Digoxin (DIGOXIN) 125 Mcg Tablet, 125 MCG PO DAILY 10/19/13 Pantoprazole Sodium (PROTONIX ) 40 Mg Tablet.dr, 40 MG PO DAILY 10/19/13 Levothyroxine Sodium (LEVOTHYROXINE SODIUM) 125 Mcg Tablet, 175 MCG PO DAILYAC, #30 TAB 0 Refills 10/19/13 Warfarin Sodium (WARFARIN SODIUM) 5 Mg Tablet, 3.5 MG PO DAILY16, 0 Refills 06/30/13 Gabapentin (NEURONTIN ) 300 Mg Capsule, 300 MG PO TID 06/30/13 Lisinopril (LISINOPRIL) 40 Mg Tablet, 40 MG PO DAILY 06/30/13 Discontinued Reported Medications Hydrocodone Bit/Acetaminophen (HYDROCODONE-APAP 5-325 ) 1 Each Tablet, 1 TAB PO PRN Q6HRS PRN for PAIN, TAB 0 Refills 10/06/16 Hydrocodone Bit/Acetaminophen (HYDROCODONE-APAP 7.5-325 ) 1 Each Tablet, 1 TAB PO BID PRN for PAIN, TAB 0 Refills 07/28/16 Sotalol Hcl (SOTALOL) 160 Mg Tablet, 160 MG PO BID 07/28/16 Cyanocobalamin (Vitamin B-12) (VITAMIN B-12) 1,000 Mcg Tablet, 1 TAB PO DAILY, #30 TAB 2 Refills 07/28/16 Sitagliptin Phosphate (JANUVIA) 25 Mg Tablet, 25 MG PO DAILY05 10/19/13 Primidone (PRIMIDONE) 50 Mg Tablet, 100 MG PO BID76 06/30/13 Primidone (PRIMIDONE) 50 Mg Tablet, 50 MG PO DAILYWLUN 06/30/13 JANES GRAVES MD Jan 01, 2019 10:21
--- NOTE | 2019-01-01 10:37 | PDOC ---
SUBJECTIVE Subjective Doing well this am, no complaints OBJECTIVE Objective Physical Exam: General appearance: Alert and Oriented Head: Normocephalic, without obvious abnormality Eyes: conjunctivae/corneas clear. PERRL, EOM's intact. Fundi benign Lungs: Regular respirations, non labored breathing Abdomen: soft, non-tender, obese. No masses, no organomegaly Pelvic: deferred Vital Signs Vital Signs Date Time Temp Pulse Resp B/P (MAP) Pulse Ox O2 Delivery O2 Flow Rate FiO2 01/01/19 09:00 Room Air 01/01/19 09:00 86 203/86 01/01/19 08:59 86 203/86 01/01/19 07:00 98.2 86 18 203/86 (125) 94 Room Air 98.2 01/01/19 03:15 97.9 70 18 151/64 (93) 93 Room Air 97.9 01/01/19 00:01 69 132/82 (99) 12/31/18 23:00 98.5 64 18 164/72 (102) 93 Room Air 98.5 12/31/18 20:00 Room Air 12/31/18 19:50 98.9 64 20 149/67 (94) 93 Room Air 98.9 12/31/18 17:42 95 Nasal Cannula 2.0 12/31/18 17:41 Room Air 12/31/18 17:37 73 149/52 12/31/18 15:00 98.9 73 18 149/52 (84) 95 Room Air 98.9 12/31/18 11:00 98.1 62 18 193/82 (119) 98 Nasal Cannula 2.0 98.1 I & O Intake and Output 01/01/19 06:59 Intake Total 400 ml Output Total 800 ml Balance -400 ml Intake Oral 400 ml Output Urine Total 800 ml # Voids 3 # Bowel Movements 1 PHYSICAL EXAM Physical Exam Physical Exam: General appearance: Alert and Oriented Head: Normocephalic, without obvious abnormality Eyes: conjunctivae/corneas clear. PERRL, EOM's intact. Fundi benign Lungs: Regular respirations, non labored breathing Abdomen: soft, non-tender, obese. No masses, no organomegaly Pelvic: deferred ASSESSMENT/PLAN Assessment/Plan There are several options for investigation of hyperdense mass of right kidney to include observation vs more aggressive surgical options. DTR and patient are in agreement that they want a less aggressive option with regard CT kidney findings. A follow up appointment has been arranged for patient to see Dr. Gomez on 04/02/19 at 2 pm at location. Appointment card and new patient paperwork given to patient and daughter. At the time of the appointment, follow up imaging can be ordered and further questions answered. Will sign off at this time, but please call with questions or changes in patient condition. COMMENT Lab Laboratory Tests Test 01/01/19 04:30 Prothrombin Time 26.5 SEC (11.7-14.0) Prothromb Time International Ratio 2.5 (0.8-1.1) Imaging CT ABD/PELVIS WITH CONTRAST IMPRESSION: Bilateral renal cysts. There is a hyperdense mass of the mid to upper aspect of the right kidney which corresponds to the complex cystic lesion seen by renal sonography dated December 30, 2018. This does not enhance consistent with a complex hyperdense cyst. This may be followed sonographically in 6 months therefore. Nonobstructing stone of the left kidney. No hydronephrosis or hydroureter. ANNETTE ESTRADA APRN Jan 01, 2019 10:36
[2019-01-01 10:53] VITALS: BP 127/67
--- NOTE | 2019-01-01 12:52 | PDOC ---
PROGRESS NOTES Subjective Subjective No new complaints. Objective Objective Vital Signs Date Time Temp Pulse Resp B/P (MAP) Pulse Ox O2 Delivery O2 Flow Rate FiO2 01/01/19 10:53 98.5 63 18 127/67 (87) 97 Room Air 98.5 12/31/18 17:42 2.0 Intake and Output 01/01/19 07:00 Intake Total 400 ml Output Total 800 ml Balance -400 ml Intake Oral 400 ml Output Urine Total 800 ml # Voids 3 # Bowel Movements 1 Physical Exam Physical Exam She is comfortable sitting in bedside chair and eating lunch and she is walking in her room independently. Assessment Assessment Problems Medical Problems: (1) Anemia Status: Chronic (2) Atrial fibrillation Status: Chronic (3) Chest pain Status: Acute (4) CHF (congestive heart failure) Status: Acute (5) COPD (chronic obstructive pulmonary disease) Status: Chronic (6) COPD exacerbation Status: Acute (7) DJD (degenerative joint disease) Status: Chronic (8) Hypertension Status: Chronic Plan Plan of Jail with home health of SNF transfer when medically stable. Comment Review of Relevant I have reviewed the following items prakash (where applicable) has been applied. Labs Laboratory Tests Test 12/31/18 05:40 01/01/19 04:30 Prothrombin Time 25.5 SEC (11.7-14.0) 26.5 SEC (11.7-14.0) Prothromb Time International Ratio 2.3 (0.8-1.1) 2.5 (0.8-1.1) Laboratory Tests Test 01/01/19 04:30 Prothrombin Time 26.5 SEC (11.7-14.0) Prothromb Time International Ratio 2.5 (0.8-1.1) Microbiology 12/29/18 Urine Culture - Final, Complete 12/29/18 Urine Culture Result 1 (ARACELI) - Final, Complete Medications Current Medications Aspirin (Everardo Aspirin) 325 mg 1X ONCE PO ; Start 12/29/18 at 00:15; Stop 12/29/18 at 00:27; Status DC Labetalol HCl (Normodyne Iv Push) 10 mg 1X ONCE IVP Last administered on 12/29/18at 01:11; Start 12/29/18 at 01:00; Stop 12/29/18 at 01:01; Status DC Bumetanide (Bumex) 0.5 mg 1X ONCE IV Last administered on 12/29/18 01:47; Start 12/29/18 at 01:15; Stop 12/29/18 at 01:16; Status DC Ondansetron HCl (Zofran) 4 mg PRN Q8HRS PRN IV NAUSEA/VOMITING Last administered on 12/29/18 21:51; Start 12/29/18 at 01:00; Stop 12/30/18 at 00:59; Status DC Fentanyl Citrate (Fentanyl 2ml Vial) 25 mcg PRN Q2HR PRN IV PAIN Last administered on 12/30/18 07:30; Start 12/29/18 at 01:00; Stop 12/30/18 at 09:44; Status DC Aspirin (Ecotrin) 81 mg DAILY PO ; Start 12/29/18 at 09:15; Stop 12/29/18 at 12:36; Status DC Cyanocobalamin (Vitamin B-12) 1,000 mcg DAILY PO ; Start 12/29/18 at 09:15; Stop 12/29/18 at 11:42; Status DC Digoxin (Lanoxin) 125 mcg DAILY PO Last administered on 01/01/19 09:00; Start 12/29/18 at 09:15 Ferrous Sulfate (Feosol) 325 mg BID PO ; Start 12/29/18 at 10:00; Stop 12/29/18 at 11:42; Status DC Furosemide (Lasix) 40 mg DAILY PO Last administered on 01/01/19 08:59; Start 12/29/18 at 09:15 Gabapentin (Neurontin) 300 mg TID PO Last administered on 01/01/19 09:09; Start 12/29/18 at 10:00 Levothyroxine Sodium (Synthroid) 175 mcg DAILYAC PO Last administered on 01/01/19 05:59; Start 12/29/18 at 09:15 Lisinopril (Prinivil) 40 mg DAILY PO Last administered on 01/01/19 08:59; Start 12/29/18 at 09:15 Mirtazapine (Remeron) 7.5 mg QHS PO Last administered on 12/31/18at 21:46; Start 12/29/18 at 21:00 Oxycodone/ Acetaminophen (Percocet 10/325) 1 tab PRN Q8HRS PRN PO MODERATE - SEVERE PAIN Last administered on 01/01/19 09:00; Start 12/29/18 at 09:15 Pantoprazole Sodium (Protonix) 40 mg DAILYAC PO Last administered on 01/01/19 05:59; Start 12/29/18 at 09:15 Potassium Chloride (Klor-Con) 20 meq DAILY16 PO Last administered on 12/31/18 15:05; Start 12/29/18 at 16:00 Ropinirole HCl (Requip) 0.25 mg BID PO Last administered on 01/01/19 08:59; Start 12/29/18 at 10:00 Warfarin Sodium (Coumadin) 2.5 mg DAILY16 PO Last administered on 12/31/18 15:05; Start 12/29/18 at 16:00 Diltiazem HCl (Cardizem 24hr Cd) 240 mg DAILYWSUP PO Last administered on 12/31/18 17:37; Start 12/29/18 at 17:00 Non-Formulary Medication (Melatonin ) 5 mg QHS PRN PO INSOMNIA; Start 12/29/18 at 09:15; Status UNV Fish Oil (Fish Oil) 1,000 mg DAILY PO Last administered on 01/01/19 08:59; Start 12/30/18 at 09:00 Hydralazine HCl (Apresoline Inj) 10 mg PRN Q4HRS PRN IVP FOR SBP > 160; Start 12/29/18 at 09:15 Acetaminophen (Tylenol) 650 mg PRN Q6HRS PRN PO MILD PAIN / TEMP; Start 12/29/18 at 09:15 Warfarin Sodium (Coumadin Per Pharmacy) 1 each PRN DAILY PRN MC SEE COMMENTS Last administered on 12/31/18 09:48; Start 12/29/18 at 09:15 Warfarin Sodium (Coumadin) 1 mg DAILY16 PO Last administered on 12/31/18 15:05; Start 12/29/18 at 16:00 Ceftriaxone Sodium (Rocephin) 1 gm Q24H IVP Last administered on 01/01/19 09:00; Start 12/29/18 at 10:00 Lidocaine (Lidoderm) 1 patch DAILY TD Last administered on 12/30/18 10:37; Start 12/30/18 at 10:00 Miscellaneous (Lidoderm Patch Removal) 1 ea QHS MC Last administered on 12/31/18at 21:47; Start 12/30/18 at 21:00 Nystatin (Nystop) 1 candida BID TP Last administered on 01/01/19at 09:00; Start 12/30/18 at 11:00 Lactobacillus Rhamnosus (Culturelle) 1 cap BID PO Last administered on 01/01/19at 08:59; Start 12/30/18 at 21:00 Azithromycin (Zithromax) 250 mg 1X ONCE PO Last administered on 12/30/18at 17:46; Start 12/30/18 at 16:30; Stop 12/30/18 at 16:31; Status DC Azithromycin (Zithromax) 250 mg DAILY PO Last administered on 01/01/19at 09:00; Start 12/31/18 at 09:00 Iohexol (Omnipaque 300 Mg/ml) 60 ml 1X ONCE IV Last administered on 12/31/18at 11:06; Start 12/31/18 at 10:00; Stop 12/31/18 at 10:01; Status DC Info (CONTRAST GIVEN -- Rx MONITORING) 1 each PRN DAILY PRN MC SEE COMMENTS; Start 12/31/18 at 10:00; Stop 01/02/19 at 09:59 Methylprednisolone Acetate (DEPO-Medrol 40MG VIAL) 40 mg 1X ONCE INJ ; Start 12/31/18 at 10:30; Stop 12/31/18 at 10:31; Status DC Active Scripts Active Lidocaine PATCH (Lidocaine) 1 Each Adh..patch 1 Patch TD DAILY 30 Days Azithromycin Tablet (Azithromycin) 250 Mg Tablet 250 Mg PO DAILY 5 Days Reported Percocet 10-325 Mg Tablet (Oxycodone/Acetaminophen) 1 Each Tablet 1 Tab PO PRN Q8HRS PRN Requip (Ropinirole Hcl) 0.25 Mg Tablet 0.25 Mg PO BID Mirtazapine 15 Mg Tablet 7.5 Mg PO QHS Aspir 81 (Aspirin) 81 Mg Tablet. 1 Tab PO DAILY Matzim La (Diltiazem Hcl) 240 Mg Tab.er.24h 240 Mg PO DAILYWSUP Klor-Con M20 (Potassium Chloride) 20 Meq Tab.er.prt 20 Meq PO DAILY16 Lasix (Furosemide) 80 Mg Tablet 40 Mg PO DAILY Digoxin 125 Mcg Tablet 125 Mcg PO DAILY Protonix (Pantoprazole Sodium) 40 Mg Tablet.dr 40 Mg PO DAILY Levothyroxine Sodium 125 Mcg Tablet 175 Mcg PO DAILYAC Warfarin Sodium 5 Mg Tablet 3.5 Mg PO DAILY16 Neurontin (Gabapentin) 300 Mg Capsule 300 Mg PO TID Lisinopril 40 Mg Tablet 40 Mg PO DAILY Vitals/I & O Vital Sign - Last 24 Hours 12/31/18 12/31/18 12/31/18 12/31/18 15:00 17:37 17:41 17:42 Temp 98.9 98.9 Pulse 73 73 Resp 18 B/P (MAP) 149/52 (84) 149/52 Pulse Ox 95 95 O2 Delivery Room Air Room Air Nasal Cannula O2 Flow Rate 2.0 12/31/18 12/31/18 12/31/18 01/01/19 19:50 20:00 23:00 00:01 Temp 98.9 98.5 98.9 98.5 Pulse 64 64 69 Resp 20 18 B/P (MAP) 149/67 (94) 164/72 (102) 132/82 (99) Pulse Ox 93 93 O2 Delivery Room Air Room Air Room Air 01/01/19 01/01/19 01/01/19 01/01/19 03:15 07:00 08:59 09:00 Temp 97.9 98.2 97.9 98.2 Pulse 70 86 86 86 Resp 18 18 B/P (MAP) 151/64 (93) 203/86 (125) 203/86 203/86 Pulse Ox 93 94 O2 Delivery Room Air Room Air 01/01/19 01/01/19 09:00 10:53 Temp 98.5 98.5 Pulse 63 Resp 18 B/P (MAP) 127/67 (87) Pulse Ox 97 O2 Delivery Room Air Room Air Intake and Output 12/31/18 12/31/18 01/01/19 15:00 23:00 07:00 Intake Total 200 ml 200 ml Output Total 200 ml 200 ml 400 ml Balance 0 ml 0 ml -400 ml MEG LUI MD Jan 01, 2019 12:52
--- NOTE | 2019-01-01 13:57 | NUR ---
SW following pt. Spoke with pt's daughter, Evelyn, reports they had used [facility] or [facility]. SW unable to make contact with [facility]-phone does not work. [facility] does not take managed insurance. Pt's daughter agreeable with [facility] and orders phoned/faxed to [facility]. RN notified.
--- NOTE | 2019-01-01 16:00 | PDOC ---
Provider Note Provider Note Discharge summary dictated.#[id number]. JANES GRAVES MD Jan 01, 2019 16:00
--- NOTE | 2019-01-01 19:29 | DS ---
DATE OF DISCHARGE: 01/01/2019 REASON FOR ADMISSION TO THE HOSPITAL: Chest pain. CONSULTATIONS: Dr. Samayoa, Dr. Jeff, Dr. Margie Alvarez, Dr. Hameed. PROCEDURES DONE: CT chest, CT abdomen, ultrasound of the kidneys. HOSPITAL COURSE: The patient is an 88-year-old female who has a history of chronic AFib, on Coumadin and she was having severe back pain going to the front and chest pain, basically came and seen by Cardiology. The patient had seen Cardiology at recently and in the process of getting some workup done for chronic AFib. Echo supposed to be normal. The patient was admitted for chest pain. Her EKG was negative. Her CT chest was negative. The patient had a CT of the thoracic spine which showed old compression with DJD, was seen by Dr. Jeff and got some cortisone injections. The patient was found to have a complicated cyst in the right kidney. Had ultrasound of the kidneys and it showed a complex cyst in the right kidney, around 5 cm on the right, 2 cm on the left. The patient had a CT of the abdomen, which showed complex cyst rather than tumor and seen by Urology who recommended followup CT scans. The patient had a CT scan of the chest that showed some infiltrates in the lung, questionable tumor but Pulmonology thinks it is not a tumor but more of infiltrates. The patient was treated with antibiotics, Rocephin and Zithromax. The patient had urine which was negative, mixed manuela. INR was therapeutic. Creatinine was 1.1. On the whole, the patient's condition improved and she was discharged. FINAL DIAGNOSES: 1. Chest pain secondary to chronic back DJD, negative for myocardial infarction. 2. Possible pneumonitis of the lung with questionable underlying tumor. Recommend CT of the chest in 2 months. 3. Complicated dense cyst in the right kidney, [address] scan in 6 months. 4. Urinary tract infection, more of a mixed manuela. 5. Chronic atrial fibrillation, on Coumadin, rate controlled. 6. Hypertension. 7. Hyperlipidemia. 8. Chronic anemia, seeing Hematology at . Finally it was felt that the patient could be discharged to [facility]hab. JANES GRAVES MD DR: FELIPE/kanchan JOB#: [id number] / [id number] BURAK
== END 2019-01-01 15:15 | disposition home or self-care (01) | DRG 871 ==
LOC: ER 00:04 → 2 SOUTH 00:55
PROVIDERS: ADMIT Internal Medicine; ATTEND Internal Medicine
DX: A41.9 Sepsis, unspecified organism (principal); J15.6 Pneumonia due to other Gram-negative bacteria; I50.43 Acute on chronic combined systolic (congestive) and diastolic (congestive) heart failure; J44.0 Chronic obstructive pulmonary disease with (acute) lower respiratory infection; J44.1 Chronic obstructive pulmonary disease with (acute) exacerbation; N39.0 Urinary tract infection, site not specified; D50.9 Iron deficiency anemia, unspecified; D53.9 Nutritional anemia, unspecified; E03.9 Hypothyroidism, unspecified; E11.9 Type 2 diabetes mellitus without complications; E78.5 Hyperlipidemia, unspecified; F32.9 Major depressive disorder, single episode, unspecified; G40.909 Epilepsy, unspecified, not intractable, without status epilepticus; G89.29 Other chronic pain; H35.30 Unspecified macular degeneration; G62.9 Polyneuropathy, unspecified; H54.8 Legal blindness, as defined in USA; I11.0 Hypertensive heart disease with heart failure; I25.10 Atherosclerotic heart disease of native coronary artery without angina pectoris; K57.90 Diverticulosis of intestine, part unspecified, without perforation or abscess without bleeding; I48.2 Chronic atrial fibrillation; I49.5 Sick sinus syndrome; K21.9 Gastro-esophageal reflux disease without esophagitis; M47.9 Spondylosis, unspecified; N28.1 Cyst of kidney, acquired; Z79.01 Long term (current) use of anticoagulants; Z82.49 Family history of ischemic heart disease and other diseases of the circulatory system; Z86.73 Personal history of transient ischemic attack (TIA), and cerebral infarction without residual deficits; Z90.710 Acquired absence of both cervix and uterus; Z95.0 Presence of cardiac pacemaker; Z96.611 Presence of right artificial shoulder joint; Z96.659 Presence of unspecified artificial knee joint; Z87.891 Personal history of nicotine dependence
CPT/HCPCS: 36415; 71045; 71250; 74178; 76770; 80053; 80061; 80162; 81001; 82553; 83690; 83735; 83880; 84484; 85025; 85610; 85730; 87086; 93005; 96374; 96375; J0696; J1030; J2405; J3010; J3490; Q0144; Q9967; 97116; 99285-25; G0378

== ENCOUNTER → 2019-02-21 | Outpatient (CLI) | payer MEDICARE ==
[~2019-02-21] MED LIST changes: +AZIT250T6 PO; +LIDO700A21 TD; +MIRT15TA3 PO; +OXYC1TAB22 PO; +ROPI0.25 PO
[2019-02-21 05:07] LABS: PROTHROMBIN TIME PATIENT 21.9 SEC (11.7-14.0)
== END | disposition home or self-care (01) ==
LOC: SPEC 00:59 → EDSTATUS 10:39 → SPEC 10:59
PROVIDERS: ATTEND Internal Medicine
DX: I48.20 Chronic atrial fibrillation, unspecified (principal)
CPT/HCPCS: 36415; 85610

== ENCOUNTER → 2019-06-10 | Outpatient (CLI) | payer MEDICARE ==
[2019-05-19 10:28] VITALS: BP 186/83
[~2019-06-10] MED LIST changes: +ACET325T21 PO; +AMIO400T5 PO; +AMLO10TA8 PO; -DIGO125T PO; +DIGO125T3 PO; -FELO10TA PO; +FELO10TA4 PO; +FLUO20CA19 PO; -FLUO20CA8 PO; +ISOS30TA4 PO; +MELA5CAP PO; +METO50TA6 PO; +OXYC-411 PO; +TIZA4TAB2 PO; +TRAM50TA PO
--- NOTE | 2019-06-10 18:25 | RAD ---
Examination: TIBIA FIBULA RIGHT History: Fracture Comparison/Correlation: 09/20/2016 right tibia-fibula x-rays exam, 05/30/2019 right tibia and fibula x-ray exam Findings: Frontal and lateral views of right tibia and fibula were obtained. Right total knee joint arthroplasty is intact with no loosening. Osteopenia is present. Displaced oblique fracture through the proximal fibular shaft by nearly the entire shaft width transversely is noted. Comminuted displaced fractures of the distal tibial metaphysis are noted. Transverse displacement by one half of the shaft width noted. Subtle posterior angulation noted at the site. Overlying cast material limits evaluation for fine detail. Ankle joint mortise is unremarkable. Osteopenia is notable. Impression: Proximal fibular and distal tibial fractures. No significant change in orientation of fractures. Electronically signed by: Ugo Cleveland MD (06/10/2019 6:22 PM) [facility]
== END | disposition home or self-care (01) ==
LOC: RAD 09:28
PROVIDERS: ATTEND Physician Assistant
DX: S82.431D Displaced oblique fracture of shaft of right fibula, subsequent encounter for closed fracture with routine healing (principal); S82.251D Displaced comminuted fracture of shaft of right tibia, subsequent encounter for closed fracture with routine healing; X58.XXXD Exposure to other specified factors, subsequent encounter
CPT/HCPCS: 73590

== ENCOUNTER 2019-06-12 14:16 | Inpatient (IN) | payer MEDICARE ==
[2019-06-12] VITALS (15 sets, daily range): BP systolic 116–186; BP diastolic 53–105
[~2019-06-12] VITALS: Ht 157.5 cm; Wt 79.0 kg
[~2019-06-12 14:16] MED LIST changes: -ACET325T21 PO; -AMIO400T5 PO; -AMLO10TA8 PO; -ISOS30TA4 PO; -MELA5CAP PO; -METO50TA6 PO; -OXYC-411 PO; -TIZA4TAB2 PO; -TRAM50TA PO
--- NOTE | 2019-06-12 14:41 | EKG ---
[facility] [address] [place] [address] Test Date: 2019-06-12 Test Time: 14:21:39 Pat Name: JOSE MAURO Department: Room: Gender: F Genetic Technologist: : 1930 Requested By: MANDY RIZO Order Number: [id number] Reading MD: Measurements Intervals [place] Rate: 183 P: NV: QRS: 124 QRSD: 160 T: -20 QT: 272 QTc: 477 Interpretive Statements VENTRICULAR TACHYCARDIA ABNORMAL ECG RI6.01 No previous ECG available for comparison
[2019-06-12 14:45] LABS: BASO % 0 % (0-3); EOS % 0 % (0-3); HEMATOCRIT 40.3 % (36.0-47.0); HEMOGLOBIN 12.9 g/dL (12.0-15.5); LYMPH # 1.1 x10^3/uL (1.0-4.8); LYMPH % 12 % (24-48); MEAN CORPUSCULAR HEMOGLOBIN 27 pg (25-35); MEAN CORPUSCULAR HGB CONC 32 g/dL (31-37); MEAN CORPUSCULAR VOLUME 83 fL (79-100); MONO # 0.5 x10^3/uL (0.0-1.1); MONO % 6 % (0-9); NEUT % 82 % (31-73); PLATELET COUNT 206 x10^3/uL (140-400); RED BLOOD COUNT 4.83 x10^6/uL (3.50-5.40); RED CELL DISTRIBUTION WIDTH 18.4 % (11.5-14.5); WHITE BLOOD COUNT 9.8 x10^3/uL (4.0-11.0)
--- NOTE | 2019-06-12 14:57 | PHYS DOC ---
Past Medical History Past Medical History: A-Fib, CAD, CHF, Depression, GERD, Heart Disease, Hypertension, Hypothyroid, Seizure, TIA, Other Additional Past Medical Histor: chronic low back pain Past Surgical History: Hysterectomy, Knee Replacement, Pacemaker, Tonsillectomy Additional Past Surgical Histo: 7 low back , lumpectomy L breast, R shoulder replace, R wrist, knee scope Alcohol Use: None Drug Use: None Adult General Chief Complaint Chief Complaint: RAPID HEART RATE HPI HPI Patient is a 88 year old male with history of A. fib, CAD, hypertension, CHF fci who presents in white complex tachycardia symptom onset is unclear. Patient weak with thready pulse decreased level of consciousness on ED arrival but otherwise alert and verbal. Currently denies chest pain, but dyspneic at rest. CT reveals with complex tachyarrhythmia with rate in the 180s. History limited due patient acuity[] Review of Systems Review of Systems ROS as per HPI [] All other systems were reviewed and found to be within normal limits, except as documented in this note. Current Medications Current Medications Current Medications Medications (Trade) Dose Ordered Sig/Reji Start Time Stop Time Status Last Admin Dose Admin Calcium Gluconate (Calcium Gluconate) 1,000 mg 1X ONCE 06/12/19 15:15 06/12/19 15:16 UNV Dextrose (Dextrose 50%-Water Syringe) 25 gm 1X ONCE 06/12/19 15:15 06/12/19 15:16 UNV Etomidate (Amidate) 20 mg STK-MED ONCE 06/12/19 15:06 06/12/19 15:06 DC Insulin Human Regular (HumuLIN R VIAL) 10 unit 1X ONCE 06/12/19 15:15 06/12/19 15:16 UNV Allergies Allergies Allergies Coded Allergies Type Severity Reaction Last Updated Verified NSAIDS (Non-Steroidal Anti-Inflamma Allergy Intermediate 05/12/19 Yes aspirin Allergy Intermediate 10/31/15 Yes morphine Adverse Reaction Intermediate confusion 07/28/16 Yes Physical Exam Physical Exam Constitutional:, Pale, clammy, fatigued and weak appearing. [] HENT: Normocephalic, atraumatic, bilateral external ears normal, oropharynx moist, nose normal. [] Eyes: PERRLA, EOMI, conjunctiva normal. [] Neck: Normal range of motion, no JVD. [] Cardiovascular: Tachycardia, thready pulses, negative Homans signs[] Lungs & Thorax: Respirations, tachypnea, shallow, but otherwise clearl[] Abdomen: Bowel sounds normal, soft, no tenderness, no masses, no pulsatile masses. [] Skin: Warm, dry. [] Back: No tenderness. [] Extremities: No tenderness, no edema. [] Neurologic: Alert and oriented X 3, normal motor function, normal sensory function, no focal deficits noted. [] Psychologic: Affect normal, judgement normal, mood normal. [] Current Patient Data Vital Signs Vital Signs Date Time Temp Pulse Resp B/P (MAP) Pulse Ox O2 Delivery O2 Flow Rate FiO2 06/12/19 14:16 98.1 185 22 117/53 (74) 96 Nasal Cannula 4.0 98.1 Lab Values Laboratory Tests Test 06/12/19 14:20 White Blood Count 9.8 x10^3/uL (4.0-11.0) Red Blood Count 4.83 x10^6/uL (3.50-5.40) Hemoglobin 12.9 g/dL (12.0-15.5) Hematocrit 40.3 % (36.0-47.0) Mean Corpuscular Volume 83 fL (79-100) Mean Corpuscular Hemoglobin 27 pg (25-35) Mean Corpuscular Hemoglobin Concent 32 g/dL (31-37) Red Cell Distribution Width 18.4 % (11.5-14.5) H Platelet Count 206 x10^3/uL (140-400) Neutrophils (%) (Auto) 82 % (31-73) H Lymphocytes (%) (Auto) 12 % (24-48) L Monocytes (%) (Auto) 6 % (0-9) Eosinophils (%) (Auto) 0 % (0-3) Basophils (%) (Auto) 0 % (0-3) Neutrophils # (Auto) 8.0 x10^3/uL (1.8-7.7) H Lymphocytes # (Auto) 1.1 x10^3/uL (1.0-4.8) Monocytes # (Auto) 0.5 x10^3/uL (0.0-1.1) Eosinophils # (Auto) 0.0 x10^3/uL (0.0-0.7) Basophils # (Auto) 0.0 x10^3/uL (0.0-0.2) Sodium Level 136 mmol/L (136-145) Potassium Level 6.1 mmol/L (3.5-5.1) *H Chloride Level 101 mmol/L (98-107) Carbon Dioxide Level 28 mmol/L (21-32) Anion Gap 7 (6-14) Blood Urea Nitrogen 20 mg/dL (7-20) Creatinine 1.8 mg/dL (0.6-1.0) H Estimated GFR (Cockcroft-Gault) 26.5 BUN/Creatinine Ratio 11 (6-20) Glucose Level 157 mg/dL (70-99) H Calcium Level 9.3 mg/dL (8.5-10.1) Magnesium Level 2.0 mg/dL (1.8-2.4) Total Bilirubin 0.4 mg/dL (0.2-1.0) Aspartate Amino Transferase (AST) 18 U/L (15-37) Alanine Aminotransferase (ALT) 9 U/L (14-59) L Alkaline Phosphatase 128 U/L (46-116) H Troponin I Quantitative 0.214 ng/mL (0.000-0.055) PA-Kfq-Y-Type Natriuretic Peptide 5093 pg/mL (0-449) H Total Protein 7.1 g/dL (6.4-8.2) Albumin 3.4 g/dL (3.4-5.0) Albumin/Globulin Ratio 0.9 (1.0-1.7) L Laboratory Tests 06/12/19 14:20 Laboratory Tests 06/12/19 14:20 EKG EKG [EKG 1: V. tach, rate 183 EKG: Sinus bradycardia, rate 43] Radiology/Procedures Radiology/Procedures CXR: Pulmonary vascular congestion Indication: [unstabl v-tach:] Consent: The patient provided verbal consent for this procedure. Pre-Medication: [etomidate 10mg] Procedure: The patient was placed in the supine position and the chest area was exposed. The cardioversion pads were applied in the standard manner and configu ration. The defibrillator was set on the sync mode] mode and charged to 200 [address] les. A charge was then delivered which resulted in return to sinus rhythm:]. The patient tolerated the procedure well. Complications: none. [] Course & Med Decision Making Course & Med Decision Making Pertinent Labs and Imaging studies reviewed. (See chart for details) [Patient with thready pulse without measurable blood pressure. Verbal consent obtained. Patient given only for sedation was successfully cardioverted on first attempt. IV calcium, bicarb and insulin given. Will admit with cardiology consult. Critical care time 45 mins . ] Dragon Disclaimer Dragon Disclaimer This electronic medical record was generated, in whole or in part, using a voice recognition dictation system. Departure Departure Impression: Primary Impression: Tachyarrhythmia Additional Impression: Hyperkalemia Disposition: ADMITTED INPATIENT Admitting Physician: Venus Escobar Condition: IMPROVED Referrals: VENUS ESCOBAR MD (PCP) Problem Qualifiers MANDY RIZO DO Jun 12, 2019 14:57
[2019-06-12 15:05] LABS: ALBUMIN 3.4 g/dL (3.4-5.0); ALBUMIN/GLOBULIN RATIO 0.9 (1.0-1.7); CALCIUM 9.3 mg/dL (8.5-10.1); CREATININE 1.8 mg/dL (0.6-1.0); GFR 26.5; TOTAL BILIRUBIN 0.4 mg/dL (0.2-1.0); TOTAL PROTEIN 7.1 g/dL (6.4-8.2)
[2019-06-12] MEDS ORDERED: ETOMIDATE 20 MG/10 ML VIAL. IV ONE ×2 (15:06→15:30)
[2019-06-12 15:10] LABS: POTASSIUM 6.1 mmol/L (3.5-5.1)
[2019-06-12] MEDS ORDERED: DEXTROSE 50% 25 GM / 50ML DISP.SYRIN. IV ONE (15:15)
[2019-06-12] MEDS ORDERED: CALCIUM GLUCONATE 1,000 MG/10 ML VIAL. IVP ONE (15:15)
[2019-06-12] MEDS ORDERED: INSULIN REGULAR 100 UNIT/ML 3ML VIAL. IV ONE (15:15)
[2019-06-12] MEDS ORDERED: IV NORMAL SALINE 1000ML BAG 1,000 ML IV ONE ×2 (15:30→18:30)
[2019-06-12] MEDS ORDERED: FUROSEMIDE 20 MG/2 ML VIAL. IVP ONE (15:30)
--- NOTE | 2019-06-12 15:31 | RAD ---
CHEST AP ONLY Clinical Indication: Short of breath Comparison: 05/12/2019 portable chest x-ray exam. Findings: Portable semiupright frontal view of the chest was obtained. Single lead left-sided pacemaker is present. The cardiomediastinal silhouette is normal. Pulmonary vasculature is borderline. Right lateral mid to lower thoracic opacity is moderately improved compared to the prior exam. There is no pneumothorax. No pleural effusion is appreciated. No acute bone abnormality. Right shoulder prosthesis is present. Left sided single lead pacemaker is present. IMPRESSION: Moderate improvement in right lower lung field opacity is present. No suspicious interval change. Electronically signed by: Ugo Cleveland MD (06/12/2019 3:28 PM) [facility]
[2019-06-12] MEDS ORDERED: ONDANSETRON PF 4 MG/2 ML VIAL. IV PRN (16:00)
--- NOTE | 2019-06-12 16:04 | PDOC2 ---
EHVER PHILLIP CAR STEREO INSTALLER 06/12/19 1604: CARDIAC CONSULT DATE OF CONSULT Date of Consult DATE: 06/12/19 TIME: 15:57 REASON FOR CONSULT Reason for Consult: wide complex tach REFERRING PHYSICIAN Referring Physician: Salazar SOURCE Source: Chart review, Patient HISTORY OF PRESENT ILLNESS HISTORY OF PRESENT ILLNESS This is a pleasant 88 yo female admitted for complains of not feeling well. This morning she was noted with chest tightness and felt some SOA. No nausea or vomiting. Her rate was noted to be fast. An EKG was eventually done and it was noted with wide complex tachycardia. She does have hx of VT with syncope and this was noted back in 04/2020 when she head a traumatic falland sustained RLE fracture which is now casted. [facility] While in ED her potassium was noted to be elevated at 6.1 and was still in VT. She received synchronized cardioversion at 200J and converted back to her regular rhythm with V paced with underlying AFIB. She takes coumadin and her INR is therapeutic. It is unclear about her hydration adequacy. Prior to this morning there has been no cardiac symptom complains. She basically WC bound still due to RLE fracture. No nausea vomiting. No passing out. PAST MEDICAL HISTORY Past Medical History Cardiovascular: AFIB, HTN, Syncope, VT Pulmonary: COPD CENTRAL NERVOUS SYSTEM: Peripheral neuropathy, TIA,possible seizure GI: Diverticulosis, GERD, Hemorrhoids Heme/Onc: Anemia NOS Hepatobiliary: No pertinent hx Psych: No pertinent hx Musculoskeletal: low back pain (12/2018 compression fracture), Osteoarthritis Rheumatologic: No pertinent hx Infectious disease: No pertinent hx ENT: Other (legally blind with macular degeneration) Renal/: Chronic renal insuff (renal cyst) Endocrine: Hypothyroidism Dermatology: No pertinent hx PAST SURGICAL HISTORY Past Surgical History Pacemaker, Arthroscopy (right shoulder and wrist), Total hip replacement (repair), Total knee replacement (right) FAMILY HISTORY Family History noncontributory SOCIAL HISTORY Social History Smoke: Quit ALCOHOL: none Drugs: None Lives: with Family CURRENT MEDICATIONS CURRENT MEDICATIONS Current Medications Medications (Trade) Dose Ordered Sig/Reji Route PRN Reason Start Time Stop Time Status Last Admin Dose Admin Sodium Chloride 1,000 ml @ 1,000 mls/hr 1X ONCE IV 06/12/19 15:30 06/12/19 16:29 06/12/19 14:27 Etomidate (Amidate) 10 mg 1X ONCE IV 06/12/19 15:30 06/12/19 15:31 DC 06/12/19 14:28 ALLERGIES ALLERGIES: Coded Allergies: NSAIDS (Non-Steroidal Anti-Inflamma (Verified Allergy, Intermediate, 05/12/19) aspirin (Verified Allergy, Intermediate, 10/31/15) morphine (Verified Adverse Reaction, Intermediate, confusion, 07/28/16) ROS Review of System 14 point ROS evaluated with pertinent positives noted per HPI PHYSICAL EXAM General: Alert, Oriented X3, Cooperative, No acute distress HEENT: Atraumatic, Mucous membr. moist/pink Lungs: Other (basilar crackles) Abdomen: Soft, No tenderness Extremities: No cyanosis, No edema Skin: No breakdown, No significant lesion Neuro: Normal speech, Sensation intact Psych/Mental Status: Mood NL MUSCULOSKELETAL: Osteoarthritic changes both hands, Other (RLE fracture with cast in place, ! foot movement and sensation. ) VITALS/I&O VITALS/I&O: Vital Signs Date Time Temp Pulse Resp B/P (MAP) Pulse Ox O2 Delivery O2 Flow Rate FiO2 06/12/19 15:31 48 16 96 06/12/19 14:27 98.1 4.0 2.0 4.0 4.0 06/12/19 14:16 Nasal Cannula LABS Lab: Laboratory Tests Test 06/12/19 14:20 White Blood Count 9.8 x10^3/uL (4.0-11.0) Red Blood Count 4.83 x10^6/uL (3.50-5.40) Hemoglobin 12.9 g/dL (12.0-15.5) Hematocrit 40.3 % (36.0-47.0) Mean Corpuscular Volume 83 fL (79-100) Mean Corpuscular Hemoglobin 27 pg (25-35) Mean Corpuscular Hemoglobin Concent 32 g/dL (31-37) Red Cell Distribution Width 18.4 % (11.5-14.5) H Platelet Count 206 x10^3/uL (140-400) Neutrophils (%) (Auto) 82 % (31-73) H Lymphocytes (%) (Auto) 12 % (24-48) L Monocytes (%) (Auto) 6 % (0-9) Eosinophils (%) (Auto) 0 % (0-3) Basophils (%) (Auto) 0 % (0-3) Neutrophils # (Auto) 8.0 x10^3/uL (1.8-7.7) H Lymphocytes # (Auto) 1.1 x10^3/uL (1.0-4.8) Monocytes # (Auto) 0.5 x10^3/uL (0.0-1.1) Eosinophils # (Auto) 0.0 x10^3/uL (0.0-0.7) Basophils # (Auto) 0.0 x10^3/uL (0.0-0.2) Sodium Level 136 mmol/L (136-145) Potassium Level 6.1 mmol/L (3.5-5.1) *H Chloride Level 101 mmol/L (98-107) Carbon Dioxide Level 28 mmol/L (21-32) Anion Gap 7 (6-14) Blood Urea Nitrogen 20 mg/dL (7-20) Creatinine 1.8 mg/dL (0.6-1.0) H Estimated GFR (Cockcroft-Gault) 26.5 BUN/Creatinine Ratio 11 (6-20) Glucose Level 157 mg/dL (70-99) H Calcium Level 9.3 mg/dL (8.5-10.1) Magnesium Level 2.0 mg/dL (1.8-2.4) Total Bilirubin 0.4 mg/dL (0.2-1.0) Aspartate Amino Transferase (AST) 18 U/L (15-37) Alanine Aminotransferase (ALT) 9 U/L (14-59) L Alkaline Phosphatase 128 U/L (46-116) H Troponin I Quantitative 0.214 ng/mL (0.000-0.055) MB-Ybd-W-Type Natriuretic Peptide 5093 pg/mL (0-449) H Total Protein 7.1 g/dL (6.4-8.2) Albumin 3.4 g/dL (3.4-5.0) Albumin/Globulin Ratio 0.9 (1.0-1.7) L Thyroid Stimulating Hormone (TSH) 2.502 uIU/mL (0.358-3.74) Laboratory Tests 06/12/19 14:20 Laboratory Tests 06/12/19 14:20 ECHOCARDIOGRAM ECHOCARDIOGRAM <Conclusion> The left ventricular systolic function is normal and the ejection fraction is within normal range. The Ejection Fraction is 50%. Wall motion consistent with conduction abnormality. Normal wall motion otherwise. Doppler and Color Flow revealed trace tricuspid regurgitation with an estimated PAP of 48 mmHg. DATE: 05/13/19 1318 ASSESSMENT/PLAN ASSESSMENT/PLAN 1. Chest pain: due to VT. CP better 2. Monomorphic VT with underlying hyperkalemia: hx of VT related syncope 3. Mild acute on chronic diastolic heart failure: due to above arrhythmia. EF at 50% 5. PPM in situ: [facility] for SSS. VVIR single lead 6. Chronic AFIB: rate controlled. On Coumadin for stroke prophylaxis. 7. Hypertension: controlled initially hypotensive due to arrhythmia. 8. GIOVANNI on CKD3 with hyperkalemia 9. Abd pain Possible UTI/constipation: complains of incomplete bladder emptying sensation. Defer to PCP 10. Elevated troponin: 0.2 due to VT, CHF and renal insufficiency Recommendations 1. Pt noted with monomorphic VT treated with synchronized CVN at 200J and converted back to her regular V paced rhythm with underlying AFIB. Start on amiodarone protocol 2. VT conversion is due to being off amiodarone with associated hyperkalemia. Could not rule out any ischemic etiology as this was discussed before from her previous hospitalization and deferred any ischemic workup and wants conservative measures. 3. I also reviewed her DC medications on 05/19/2019 from before and was noted with digoxin with no amiodarone in her list. It is unclear if the DC summary med list reflects the actual more accurate list provided during actual [facility] transfer. Will stop digoxin and will check dig level. Will obtain med list from [facility]. 4. Continue Coumadin for stroke prevention 5. IVF and lasix have been given in ED. No k supplement and hold ACEi 6. K lowering meds have been initiated in ED including IVF. Will hold off metoprolol for now till K is normalized. Follow up BMP tonight 7. Will interrogate device. 8. Check UA NOREEN MUNOZ MD 06/12/19 3601: CARDIAC CONSULT ASSESSMENT/PLAN ASSESSMENT/PLAN Patient seen and examined. Agree with above nurse practitioner note. She is well-known to our service. Reviewed EKG. Agree with initiation of amiodarone. Supportive care. HEVER PHILLIP CAR STEREO INSTALLER Jun 12, 2019 16:04 NOREEN MUNOZ MD Jun 12, 2019 18:21
--- NOTE | 2019-06-12 16:05 | EKG ---
[facility] [address] [place] [address] Test Date: 2019-06-12 Test Time: 14:32:51 Pat Name: JOSE MAURO Department: Room: [facility] Gender: F Chaser Tar: : [id number] Requested By: MANDY RIZO Order Number: [id number] Reading MD: Aurelio Zuleta MD Measurements Intervals [place] Rate: 46 P: MT: QRS: -36 QRSD: 96 T: 68 QT: 582 QTc: 515 Interpretive Statements V-PACED RHYTHM PVC Electronically Signed On 06-13-2019 13:02:04 HISTORIC SITE ADMINISTRATOR by Aurelio Zuleta MD
--- NOTE | 2019-06-12 16:12 | PDOC1 ---
History and Physical Date of Admission Date of Admission DATE: 06/12/19 TIME: 16:12 Identification/Chief Complaint Chief Complaint Palpitations Source Source: Caregiver, Chart review, Patient History of Present Illness History of Present Illness Ms Germain is an 88yo F w/ PMHx of iron deficiency anemia, pulmonary nodule, renal cysts, A-Fib, CAD, CHF, Depression, GERD, Hypertension, Hypothyroid, Seizure, TIA, PPM in situ, chronic lower back pain who was reported not feeling well at [facility] earlier today. Dr. Ramirez evaluated her and performed an EKG at [facility], found with wide complex tachycardia and transferred urgently to the ED despite the patient protesting hospital admission a bit, she was convinced by her daughter and Dr. Ramirez. In ED was found in sustained VT. She received synchronized cardioversion at 200J and converted back to her regular rhythm after 2 shocks with V paced with underlying AFIB. Started on amiodarone infusion. She is recovering from displaced proximal fibular diaphyseal and distal tibial metadiaphyseal fractures and just had a cast placed on her right leg. Her labs were significant for INR 2.1, Na 136, K 6.1, BUN 20, Cr 1.8, glucose 157, BNP 5093, troponin 0.214. On 05/12 she had a very similar presentation after being found down in her bathroom. Past Medical History Cardiovascular: AFIB, HTN, Syncope Pulmonary: COPD CENTRAL NERVOUS SYSTEM: Periperal neuropathy, TIA GI: Diverticulosis, GERD, Hemorrhoids Heme/Onc: Anemia NOS Hepatobiliary: No pertinent hx Psych: No pertinent hx Musculoskeletal: low back pain, Osteoarthritis Rheumatologic: No pertinent hx Infectious disease: No pertinent hx Renal/: Chronic renal insuff Endocrine: Hypothyroidism Past Surgical History Past Surgical History: Pacemaker, Arthroscopy, Total hip replacement, Total knee replacement Family History Family History Reviewed Family History: Family History Unknown Social History Smoke: No ALCOHOL: none Drugs: None Current Problem List Problem List Problems Medical Problems: (1) Hyperkalemia Status: Acute (2) Tachyarrhythmia Status: Acute Current Medications Current Medications Current Medications Etomidate (Amidate) 20 mg STK-MED ONCE IV ; Start 06/12/19 at 15:06; Stop 06/12/19 at 15:06; Status DC Calcium Gluconate (Calcium Gluconate) 1,000 mg 1X ONCE IVP Last administered on 06/12/19at 16:01; Start 06/12/19 at 15:15; Stop 06/12/19 at 15:16; Status DC Insulin Human Regular (HumuLIN R VIAL) 10 unit 1X ONCE IV Last administered on 06/12/19at 16:08; Start 06/12/19 at 15:15; Stop 06/12/19 at 15:16; Status DC Dextrose (Dextrose 50%-Water Syringe) 25 gm 1X ONCE IV Last administered on 06/12/19at 16:09; Start 06/12/19 at 15:15; Stop 06/12/19 at 15:16; Status DC Furosemide (Lasix) 20 mg 1X ONCE IVP Last administered on 06/12/19at 16:04; Start 06/12/19 at 15:30; Stop 06/12/19 at 15:31; Status DC Sodium Chloride 1,000 ml @ 1,000 mls/hr 1X ONCE IV Last administered on 06/12/19at 14:27; Start 06/12/19 at 15:30; Stop 06/12/19 at 16:29 Etomidate (Amidate) 10 mg 1X ONCE IV Last administered on 06/12/19at 14:28; Start 06/12/19 at 15:30; Stop 06/12/19 at 15:31; Status DC Ondansetron HCl (Zofran) 4 mg PRN Q8HRS PRN IV NAUSEA/VOMITING; Start 06/12/19 at 16:00; Stop 06/13/19 at 15:59 Sodium Polystyrene Sulfonate (Kayexalate) 15 gm 1X ONCE PO ; Start 06/12/19 at 16:15; Stop 06/12/19 at 16:16 Active Scripts Active Lidocaine PATCH (Lidocaine) 1 Each Adh..patch 1 Patch TD DAILY 30 Days Reported Percocet 10-325 Mg Tablet (Oxycodone/Acetaminophen) 1 Each Tablet 1 Tab PO PRN Q8HRS PRN Requip (Ropinirole Hcl) 0.25 Mg Tablet 0.25 Mg PO BID Mirtazapine 15 Mg Tablet 7.5 Mg PO QHS Matzim La (Diltiazem Hcl) 240 Mg Tab.er.24h 240 Mg PO DAILYWSUP Klor-Con M20 (Potassium Chloride) 20 Meq Tab.er.prt 20 Meq PO DAILY16 Lasix (Furosemide) 80 Mg Tablet 40 Mg PO DAILY Digoxin 125 Mcg Tablet 125 Mcg PO DAILY Protonix (Pantoprazole Sodium) 40 Mg Tablet.dr 40 Mg PO DAILY Levothyroxine Sodium 125 Mcg Tablet 175 Mcg PO DAILYAC Warfarin Sodium 5 Mg Tablet 2.5 Mg PO DAILY16 Neurontin (Gabapentin) 300 Mg Capsule 300 Mg PO TID Lisinopril 40 Mg Tablet 40 Mg PO DAILY Allergies Allergies: Coded Allergies: NSAIDS (Non-Steroidal Anti-Inflamma (Verified Allergy, Intermediate, 05/12/19) aspirin (Verified Allergy, Intermediate, 10/31/15) morphine (Verified Adverse Reaction, Intermediate, confusion, 07/28/16) ROS General: YES: Fatigue, Malaise; No: Chills, Night Sweats, Appetite, Other PSYCHOLOGICAL ROS: No: Anxiety, Behavioral Disorder, Concentration difficultie, Decreased libido, Depression, Disorientation, Hallucinations, Hostility, Irritablity, Memory difficulties, Mood Swings, Obsessive thoughts, Physical abuse, Sexual abuse, Sleep disturbances, Suicidal ideation, Other Eyes: Yes Decreased vision; No Blurry vision, No Double vision, No Dry eyes, No Excessive tearing, No Eye Pain, No Itchy Eyes, No Loss of vision, No Photophobia, No Scotomata, No Uses contacts, No Uses glasses, No Other HEENT: No: Heacaches, Visual Changes, Hearing change, Nasal congestion, Nasal discharge, Oral lesions, Sinus pain, Sore Throat, Epistaxis, Sneezing, Snoring, Tinnitus, Vertigo, Vocal changes, Other ALLERGY AND IMMUNOLOGY: No: Hives, Insect Bite Sensitivity, Itchy/Watery Eyes, Nasal Congestion, Post Nasal Drip, Seasonal Allergies, Other Hematological and Lymphatic: No: Bleeding Problems, Blood Clots, Blood Transfusions, Brusing, Night Sweats, Pallor, Swollen Lymph Nodes, Other ENDOCRINE: No: Breast Changes, Galactorrhea, Hair Pattern Changes, Hot Flashes, Malaise/lethargy, Mood Swings, Palpitations, Polydipsia/polyuria, Skin Changes, Temperature Intolerance, Unexpected Weight Changes, Other Breast: No New/Changing Breast Lumps, No Nipple changes, No Nipple discharge, No Other Respiratory: No: Cough, Hemoptysis, Orthopnea, Pleuritic Pain, Shortness of breath, SOB with excertion, Sputum Changes, Stridor, Tachypnea, Wheezing, Other Cardiovascular: yes Palpitations; No Chest Pain, No Orthopnea, No Paroxysmal Noc. Dyspnea, No Edema, No Lt Headedness, No Other Gastrointestinal: No Nausea, No Vomiting, No Abdominal Pain, No Diarrhea, No Constipation, No Melena, No Hematochezia, No Other Genitourinary: No Dysuria, No Frequency, No Incontinence, No Hematuria, No Retention, No Discharge, No Urgency, No Pain, No Flank Pain, No Other, No , No , No , No , No , No , No Musculoskeletal: Yes Gait Disturbance, Yes Joint Pain, Yes Joint Stiffness; No Joint Swelling, No Muscle Pain, No Muscular Weakness, No Pain In:, No Swelling In:, No Other Neurological: Yes Gait Disturbance; No Behavorial Changes, No Bowel/Bladder ControlChng, No Confusion, No Dizziness, No Headaches, No Impaired Coord/balance, No Memory Loss, No Numbness/Tingling, No Seizures, No Speech Problems, No Tremors, No Visual Changes, No Weakness, No Other Skin: No Dry Skin, No Eczema, No Hair Changes, No Lumps, No Mole Changes, No Mottling, No Nail Changes, No Pruritus, No Rash, No Skin Lesion Changes, No Other, No Acne Physical Exam General: Alert, Cooperative, No acute distress HEENT: Atraumatic, PERRLA, EOMI, Mucous membr. moist/pink Lungs: Clear to auscultation, Normal air movement Heart: no thrills, no rubs, irregularly irregular Abdomen: Normal bowel sounds, Soft, No tenderness, No hepatosplenomegaly, No masses Rectal Exam: not examined Extremities: No clubbing, No cyanosis, Other (right leg in cast) Skin: No rashes, No breakdown, No significant lesion Neuro: Normal speech, Normal tone, Sensation intact, Cranial nerves 3-12 NL, Reflexes 2+ Psych/Mental Status: Mental status NL, Mood NL Vitals Vitals Vital Signs Date Time Temp Pulse Resp B/P (MAP) Pulse Ox O2 Delivery O2 Flow Rate FiO2 06/12/19 15:31 48 16 96 06/12/19 14:27 98.1 4.0 2.0 4.0 4.0 06/12/19 14:16 Nasal Cannula Labs Labs Laboratory Tests Test 06/12/19 14:20 06/12/19 15:56 White Blood Count 9.8 x10^3/uL (4.0-11.0) Red Blood Count 4.83 x10^6/uL (3.50-5.40) Hemoglobin 12.9 g/dL (12.0-15.5) Hematocrit 40.3 % (36.0-47.0) Mean Corpuscular Volume 83 fL (79-100) Mean Corpuscular Hemoglobin 27 pg (25-35) Mean Corpuscular Hemoglobin Concent 32 g/dL (31-37) Red Cell Distribution Width 18.4 % (11.5-14.5) Platelet Count 206 x10^3/uL (140-400) Neutrophils (%) (Auto) 82 % (31-73) Lymphocytes (%) (Auto) 12 % (24-48) Monocytes (%) (Auto) 6 % (0-9) Eosinophils (%) (Auto) 0 % (0-3) Basophils (%) (Auto) 0 % (0-3) Neutrophils # (Auto) 8.0 x10^3/uL (1.8-7.7) Lymphocytes # (Auto) 1.1 x10^3/uL (1.0-4.8) Monocytes # (Auto) 0.5 x10^3/uL (0.0-1.1) Eosinophils # (Auto) 0.0 x10^3/uL (0.0-0.7) Basophils # (Auto) 0.0 x10^3/uL (0.0-0.2) Sodium Level 136 mmol/L (136-145) Potassium Level 6.1 mmol/L (3.5-5.1) Chloride Level 101 mmol/L (98-107) Carbon Dioxide Level 28 mmol/L (21-32) Anion Gap 7 (6-14) Blood Urea Nitrogen 20 mg/dL (7-20) Creatinine 1.8 mg/dL (0.6-1.0) Estimated GFR (Cockcroft-Gault) 26.5 BUN/Creatinine Ratio 11 (6-20) Glucose Level 157 mg/dL (70-99) Calcium Level 9.3 mg/dL (8.5-10.1) Magnesium Level 2.0 mg/dL (1.8-2.4) Total Bilirubin 0.4 mg/dL (0.2-1.0) Aspartate Amino Transf (AST/SGOT) 18 U/L (15-37) Alanine Aminotransferase (ALT/SGPT) 9 U/L (14-59) Alkaline Phosphatase 128 U/L (46-116) Troponin I Quantitative 0.214 ng/mL (0.000-0.055) ZQ-Wne-T-Type Natriuretic Peptide 5093 pg/mL (0-449) Total Protein 7.1 g/dL (6.4-8.2) Albumin 3.4 g/dL (3.4-5.0) Albumin/Globulin Ratio 0.9 (1.0-1.7) Thyroid Stimulating Hormone (TSH) 2.502 uIU/mL (0.358-3.74) Glucose (Fingerstick) 95 mg/dL (70-99) Laboratory Tests Test 06/12/19 14:20 06/12/19 15:56 White Blood Count 9.8 x10^3/uL (4.0-11.0) Red Blood Count 4.83 x10^6/uL (3.50-5.40) Hemoglobin 12.9 g/dL (12.0-15.5) Hematocrit 40.3 % (36.0-47.0) Mean Corpuscular Volume 83 fL (79-100) Mean Corpuscular Hemoglobin 27 pg (25-35) Mean Corpuscular Hemoglobin Concent 32 g/dL (31-37) Red Cell Distribution Width 18.4 % (11.5-14.5) Platelet Count 206 x10^3/uL (140-400) Neutrophils (%) (Auto) 82 % (31-73) Lymphocytes (%) (Auto) 12 % (24-48) Monocytes (%) (Auto) 6 % (0-9) Eosinophils (%) (Auto) 0 % (0-3) Basophils (%) (Auto) 0 % (0-3) Neutrophils # (Auto) 8.0 x10^3/uL (1.8-7.7) Lymphocytes # (Auto) 1.1 x10^3/uL (1.0-4.8) Monocytes # (Auto) 0.5 x10^3/uL (0.0-1.1) Eosinophils # (Auto) 0.0 x10^3/uL (0.0-0.7) Basophils # (Auto) 0.0 x10^3/uL (0.0-0.2) Sodium Level 136 mmol/L (136-145) Potassium Level 6.1 mmol/L (3.5-5.1) Chloride Level 101 mmol/L (98-107) Carbon Dioxide Level 28 mmol/L (21-32) Anion Gap 7 (6-14) Blood Urea Nitrogen 20 mg/dL (7-20) Creatinine 1.8 mg/dL (0.6-1.0) Estimated GFR (Cockcroft-Gault) 26.5 BUN/Creatinine Ratio 11 (6-20) Glucose Level 157 mg/dL (70-99) Calcium Level 9.3 mg/dL (8.5-10.1) Magnesium Level 2.0 mg/dL (1.8-2.4) Total Bilirubin 0.4 mg/dL (0.2-1.0) Aspartate Amino Transf (AST/SGOT) 18 U/L (15-37) Alanine Aminotransferase (ALT/SGPT) 9 U/L (14-59) Alkaline Phosphatase 128 U/L (46-116) Troponin I Quantitative 0.214 ng/mL (0.000-0.055) ZB-Kjg-C-Type Natriuretic Peptide 5093 pg/mL (0-449) Total Protein 7.1 g/dL (6.4-8.2) Albumin 3.4 g/dL (3.4-5.0) Albumin/Globulin Ratio 0.9 (1.0-1.7) Thyroid Stimulating Hormone (TSH) 2.502 uIU/mL (0.358-3.74) Glucose (Fingerstick) 95 mg/dL (70-99) Images Images KUB - possible L3 compression fx CXR - Single lead left-sided pacemaker is present. The cardiomediastinal silhouette is normal. Pulmonary vasculature is borderline. Right lateral mid to lower thoracic opacity is moderately improved compared to the prior exam. There is no pneumothorax. No pleural effusion is appreciated. No acute bone abnormality. Right shoulder prosthesis is present. Left sided single lead pacemaker is present. IMPRESSION: Moderate improvement in right lower lung field opacity is present. No suspicious interval change. VTE Prophylaxis Ordered VTE Prophylaxis Devices: Contraindicated VTE Pharmacological Prophylaxi: Yes Assessment/Plan Assessment/Plan A/P: Ventricular tachycardia - hyperkalemia is likely etiology, she is therapeutically anticoagulated, less likely this is a thrombosis. Digoxin level is pending. Will hold digoxin with GIOVANNI. Cards consulted GIOVANNI - likely vasomotor nephropathy. Will hydrate gently as she does have h/o CHF A-Fib - currently paced. On metoprolol, warfarin, amiodarone and digoxin. For now will cont amiodarone GTT for V-tach. Hold digoxin, I would recommend permanently holding it. Cont warfarin Elevated troponin - will trend, likely stress from V-tach and GIOVANNI CAD - on meds. CHF - diastolic per history, will watch fluid balance. Needs some fluid to help correct her potassium Abdominal pain - Possible UTI, definitely with some constipation. L3 abnormality on KUB, will check CT when she is more stable Depression - on remeron, will continue GERD - on protonix. continue Hypertension - cont meds Hypothyroid - on 175mcg synthroid, will continue. PPM in situ - [facility] for SSS. VVIR single lead H/o TIA - on afib tx and statin Chronic lower back pain - will cont medications. 10mg oxycodone Iron deficiency anemia - on therapy. will monitor Pulmonary nodule - 6 month f/u FEN - Cardiac diet PPX - warfarin DNR/DNI Dispo - CVC for v-tach recovering CC time 73 minutes BARRY SHELDON MD Jun 12, 2019 16:12
[2019-06-12] MEDS ORDERED: SODIUM POLYSTYRENE SULFON/SORB 15 GM/60 ML ORAL.SUSP PO ONE (16:15)
--- NOTE | 2019-06-12 16:49 | RAD ---
ABDOMEN SUPINE UPRIGHT History: Lower abdominal pain. Technique: Upright and supine views of the abdomen. Comparison: CT December 31, 2018. Chest x-ray June 12, 2019 Findings: Patchy basilar opacities better evaluated on chest x-ray. No pneumoperitoneum. Several nondilated air-filled loops of small bowel. Air and stool scattered throughout the imaged colon. Moderate proximal colonic stool. Postop changes right hip. L2 vertebroplasty. Vascular calcifications.Multilevel lumbar spondylosis. Possible L3 superior endplate compression fracture compared to prior CT. Impression: 1. Nonobstructed bowel gas pattern. 2. Possible interval L3 superior endplate compression fracture compared to prior CT. Recommend dedicated lumbar radiographs to further assess. Electronically signed by: Tye Bernstein DO (06/12/2019 4:47 PM) [id number]
[2019-06-12] MEDS ORDERED: AMIODARONE 150 MG in IV DEXTROSE 5% 100ML 100 ML IV ONE (17:00)
[2019-06-12] MEDS: AMIODARONE 450 MG in IV DEXTROSE 5% 250 ML IV PRN (18:02)
[2019-06-12 18:45] LABS: PROTHROMBIN TIME PATIENT 23.8 SEC (11.7-14.0)
--- NOTE | 2019-06-12 19:08 | NUR ---
Patient arrived to room with CORPORATE ASSOCIATE ATTORNEY and daughter. Patient is complaining of a small stomach ache at this time but no cardiac abnormalities. Patient Vpaced on the monitor with no arrhythmias. Patients admission completed. Amio drip started per cardiology. Patient is hungry at this time. Verified with Dr. Humphrey that the patient can eat food. Dr. Humphrey ordered a cardiac diet. Patient fed. [facility] was paged to interrogate pacemaker. Answering service stated they will have someone interrogate it tomorrow. Dr. Zuleta was made aware of this and said that was fine.
[2019-06-12] MEDS: WARFARIN 2.5 MG TABLET. PO SCH (20:42)
[2019-06-12] MEDS: rOPINIRole 0.25 MG TABLET. PO SCH (20:42)
[2019-06-12] MEDS: MIRTAZAPINE 7.5 MG TABLET. PO SCH (20:42)
[2019-06-12] MEDS: PATCH REMOVAL. MC SCH (20:55)
[2019-06-12 21:02] LABS: DIG 2.8 ng/mL (0.9-2.0)
--- NOTE | 2019-06-12 21:08 | NUR ---
Patient requesting something for pain and contacted Dr. Humphrey and restarted Oxycodone and to monitor her. Reviewed with Dr. Humphrey patiets latest troponin of 2.8 and to be expected after cardioversion and if the next [facility] is [facility] Will continue to monitor.
[2019-06-12] MEDS: oxyCODONE/APAP 10/325 1 TAB TABLET PO PRN (21:17)
[2019-06-12] MEDS: PSYLLIUM HUSK (SUGAR FREE) 1 PKT PACKET PO SCH (21:30)
[2019-06-12] MEDS: POLYETHYLENE GLYCOL 3350 17 GM PACKET. PO SCH (21:30)
[2019-06-13] VITALS (25 sets, daily range): BP systolic 131–198; BP diastolic 61–102
[2019-06-13 00:12] LABS: CALCIUM 8.6 mg/dL (8.5-10.1); CREATININE 1.6 mg/dL (0.6-1.0); GFR 30.3; POTASSIUM 4.7 mmol/L (3.5-5.1)
[2019-06-13] MEDS: AMIODARONE 450 MG in IV DEXTROSE 5% 250 ML IV PRN (00:56)
[2019-06-13] MEDS ORDERED: NITROGLYCERIN PREMIX 250 ML IV PRN (01:45)
[2019-06-13] MEDS ORDERED: TIZA4TAB2 PO (02:08)
[2019-06-13] MEDS ORDERED: TRAM50TA PO (02:08)
[2019-06-13] MEDS ORDERED: MELA5CAP PO (02:08)
[2019-06-13] MEDS ORDERED: ACET325T21 PO (02:08)
[2019-06-13] MEDS ORDERED: OXYC-411 PO (02:08)
[2019-06-13 04:12] LABS: BILIRUBIN,URINE NEGATIVE (NEG); CLARITY,URINE CLEAR; COLOR,URINE YELLOW; NITRITE,URINE POSITIVE (NEG); PROTEIN,URINE 30 mg/dL (NEG-TRACE)
[2019-06-13 04:25] LABS: BACTERIA,URINE MANY /HPF (0-FEW); RBC,URINE OCC /HPF (0-2); SQUAMOUS EPITHELIAL CELL,UR MOD /LPF; WBC,URINE TNTC /HPF (0-4)
[2019-06-13 05:04] LABS: BASO % 0 % (0-3); EOS # 0.3 x10^3/uL (0.0-0.7); EOS % 3 % (0-3); HEMATOCRIT 37.3 % (36.0-47.0); HEMOGLOBIN 11.8 g/dL (12.0-15.5); LYMPH # 1.2 x10^3/uL (1.0-4.8); LYMPH % 10 % (24-48); MEAN CORPUSCULAR HEMOGLOBIN 27 pg (25-35); MEAN CORPUSCULAR HGB CONC 32 g/dL (31-37); MEAN CORPUSCULAR VOLUME 84 fL (79-100); MONO # 0.9 x10^3/uL (0.0-1.1); MONO % 8 % (0-9); NEUT # 9.2 x10^3/uL (1.8-7.7); NEUT % 79 % (31-73); PLATELET COUNT 172 x10^3/uL (140-400); RED BLOOD COUNT 4.46 x10^6/uL (3.50-5.40); RED CELL DISTRIBUTION WIDTH 17.9 % (11.5-14.5); WHITE BLOOD COUNT 11.7 x10^3/uL (4.0-11.0)
[2019-06-13 05:35] LABS: ALBUMIN 3.1 g/dL (3.4-5.0); ALBUMIN/GLOBULIN RATIO 0.9 (1.0-1.7); CALCIUM 8.8 mg/dL (8.5-10.1); CREATININE 1.4 mg/dL (0.6-1.0); GFR 35.4; POTASSIUM 4.2 mmol/L (3.5-5.1); TOTAL BILIRUBIN 0.6 mg/dL (0.2-1.0); TOTAL PROTEIN 6.5 g/dL (6.4-8.2)
[2019-06-13] MEDS ORDERED: PANTOPRAZOLE 40 MG TABLET.DR. PO ONE (05:35)
[2019-06-13] MEDS: PANTOPRAZOLE 40 MG TABLET.DR. PO SCH (05:39)
[2019-06-13] MEDS: LEVOTHYROXINE 175 MCG TABLET PO SCH (05:39)
[2019-06-13] MEDS: rOPINIRole 0.25 MG TABLET. PO SCH ×2 (08:24→20:34)
[2019-06-13] MEDS: oxyCODONE/APAP 10/325 1 TAB TABLET PO PRN ×2 (08:24→17:46)
[2019-06-13] MEDS: LIDOCAINE (700MG/PATCH) PATCH. TD SCH (08:24)
[2019-06-13] MEDS ORDERED: CLOPIDOGREL BISULFATE 75 MG TABLET PO ONE (09:00)
[2019-06-13] MEDS ORDERED: METOPROLOL TART IMMED RELEASE 25 MG TABLET. PO SCH (09:00)
[2019-06-13] MEDS: cefTRIAXone IV Push 1 GM VIAL. IVP SCH (09:31)
[2019-06-13 10:48] LABS: PROTHROMBIN TIME PATIENT 24.5 SEC (11.7-14.0)
--- NOTE | 2019-06-13 10:55 | PDOC ---
[employer] PROGRESS NOTE Chief Complaint Chief Complaint V. tach status post cardioversion History of Present Illness History of Present Illness Ms Germain is an 88yo F w/ PMHx of iron deficiency anemia, pulmonary nodule, renal cysts, A-Fib, CAD, CHF, Depression, GERD, Hypertension, Hypothyroid, Seizure, TI A, PPM in situ, chronic lower back pain who was reported not feeling well at [facility] earlier today. Dr. Ramirez evaluated her and performed an EKG at [facility], found with wide complex tachycardia and transferred urgently to the ED despite the patient protesting hospital admission a bit, she was convinced by her daughter and Dr. Ramirez. In ED was found in sustained VT. She received synchronized cardioversion at 200J and converted back to her regular rhythm after 2 shocks with V paced with underlying AFIB. Started on amiodarone infusion. She is recovering from displaced proximal fibular diaphyseal and distal tibial metadiaphyseal fractures and just had a cast placed on her right leg. Her labs were significant for INR 2.1, Na 136, K 6.1, BUN 20, Cr 1.8, glucose 157, BNP 5093, troponin 0.214. [id number] Patient seen and examined with her daughter present Discussed with highway worker the labs with the RN and her daughter She has a UTI now We started some Rocephin Overall patient is sitting in bed Seems a little confused On O2 per nasal cannula trying to eat breakfast Vitals/I&O Vitals/I&O: Vital Signs Date Time Temp Pulse Resp B/P (MAP) Pulse Ox O2 Delivery O2 Flow Rate FiO2 06/13/19 09:28 49 164/75 06/13/19 09:27 96 Nasal Cannula 2.0 06/13/19 07:30 98.5 20 98.5 I & O 06/12/19 06/12/19 06/13/19 15:00 23:00 07:00 Intake Total 1500 ml 400 ml Output Total 150 ml Balance 1500 ml 250 ml Physical Exam General: Cooperative, mild distress Heart: Regular rate, Normal S1 Lungs: Clear, Crackles Abdomen: Normal bowel sounds, Soft, No tenderness, No hepatosplenomegaly, No masses Extremities: No clubbing, No cyanosis, Other (right leg in cast) Skin: No rashes, No breakdown, No significant lesion Labs Labs: Laboratory Tests Test 06/12/19 14:20 06/12/19 14:27 06/12/19 15:56 06/12/19 19:40 White Blood Count 9.8 x10^3/uL (4.0-11.0) Red Blood Count 4.83 x10^6/uL (3.50-5.40) Hemoglobin 12.9 g/dL (12.0-15.5) Hematocrit 40.3 % (36.0-47.0) Mean Corpuscular Volume 83 fL (79-100) Mean Corpuscular Hemoglobin 27 pg (25-35) Mean Corpuscular Hemoglobin Concent 32 g/dL (31-37) Red Cell Distribution Width 18.4 % (11.5-14.5) Platelet Count 206 x10^3/uL (140-400) Neutrophils (%) (Auto) 82 % (31-73) Lymphocytes (%) (Auto) 12 % (24-48) Monocytes (%) (Auto) 6 % (0-9) Eosinophils (%) (Auto) 0 % (0-3) Basophils (%) (Auto) 0 % (0-3) Neutrophils # (Auto) 8.0 x10^3/uL (1.8-7.7) Lymphocytes # (Auto) 1.1 x10^3/uL (1.0-4.8) Monocytes # (Auto) 0.5 x10^3/uL (0.0-1.1) Eosinophils # (Auto) 0.0 x10^3/uL (0.0-0.7) Basophils # (Auto) 0.0 x10^3/uL (0.0-0.2) Sodium Level 136 mmol/L (136-145) Potassium Level 6.1 mmol/L (3.5-5.1) Chloride Level 101 mmol/L (98-107) Carbon Dioxide Level 28 mmol/L (21-32) Anion Gap 7 (6-14) Blood Urea Nitrogen 20 mg/dL (7-20) Creatinine 1.8 mg/dL (0.6-1.0) Estimated GFR (Cockcroft-Gault) 26.5 BUN/Creatinine Ratio 11 (6-20) Glucose Level 157 mg/dL (70-99) Calcium Level 9.3 mg/dL (8.5-10.1) Magnesium Level 2.0 mg/dL (1.8-2.4) Total Bilirubin 0.4 mg/dL (0.2-1.0) Aspartate Amino Transf (AST/SGOT) 18 U/L (15-37) Alanine Aminotransferase (ALT/SGPT) 9 U/L (14-59) Alkaline Phosphatase 128 U/L (46-116) Troponin I Quantitative 0.214 ng/mL (0.000-0.055) 2.800 ng/mL (0.000-0.055) [id number] Natriuretic Peptide 5093 pg/mL (0-449) Total Protein 7.1 g/dL (6.4-8.2) Albumin 3.4 g/dL (3.4-5.0) Albumin/Globulin Ratio 0.9 (1.0-1.7) Thyroid Stimulating Hormone (TSH) 2.502 uIU/mL (0.358-3.74) Prothrombin Time 23.8 SEC (11.7-14.0) Prothromb Time International Ratio 2.2 (0.8-1.1) Glucose (Fingerstick) 95 mg/dL (70-99) Digoxin Level 2.8 ng/mL (0.9-2.0) Digoxin Last Dose Date 06/11/19 Digoxin Last Dose Time 0900 Test 06/12/19 23:00 06/13/19 04:05 06/13/19 04:30 06/13/19 10:07 Sodium Level 138 mmol/L (136-145) 139 mmol/L (136-145) Potassium Level 4.7 mmol/L (3.5-5.1) 4.2 mmol/L (3.5-5.1) Chloride Level 101 mmol/L (98-107) 102 mmol/L (98-107) Carbon Dioxide Level 27 mmol/L (21-32) 29 mmol/L (21-32) Anion Gap 10 (6-14) 8 (6-14) Blood Urea Nitrogen 20 mg/dL (7-20) 19 mg/dL (7-20) Creatinine 1.6 mg/dL (0.6-1.0) 1.4 mg/dL (0.6-1.0) Estimated GFR (Cockcroft-Gault) 30.3 35.4 Glucose Level 129 mg/dL (70-99) 115 mg/dL (70-99) Calcium Level 8.6 mg/dL (8.5-10.1) 8.8 mg/dL (8.5-10.1) Troponin I Quantitative 4.898 ng/mL (0.000-0.055) Urine Collection Type Unknown Urine Color Yellow Urine Clarity Clear Urine pH 5.0 Urine Specific [place] 1.015 Urine Protein 30 mg/dL (NEG-TRACE) Urine Glucose (UA) Negative mg/dL (NEG) Urine Ketones (Stick) Negative mg/dL (NEG) Urine Blood Moderate (NEG) Urine Nitrite Positive (NEG) Urine Bilirubin Negative (NEG) Urine Urobilinogen Dipstick 1.0 mg/dL (0.2 mg/dL) Urine Leukocyte Esterase Large (NEG) Urine RBC Occ /HPF (0-2) Urine WBC Tntc /HPF (0-4) Urine Squamous Epithelial Cells Mod /LPF Urine Bacteria Many /HPF (0-FEW) Urine Mucus Mod /LPF White Blood Count 11.7 x10^3/uL (4.0-11.0) Red Blood Count 4.46 x10^6/uL (3.50-5.40) Hemoglobin 11.8 g/dL (12.0-15.5) Hematocrit 37.3 % (36.0-47.0) Mean Corpuscular Volume 84 fL (79-100) Mean Corpuscular Hemoglobin 27 pg (25-35) Mean Corpuscular Hemoglobin Concent 32 g/dL (31-37) Red Cell Distribution Width 17.9 % (11.5-14.5) Platelet Count 172 x10^3/uL (140-400) Neutrophils (%) (Auto) 79 % (31-73) Lymphocytes (%) (Auto) 10 % (24-48) Monocytes (%) (Auto) 8 % (0-9) Eosinophils (%) (Auto) 3 % (0-3) Basophils (%) (Auto) 0 % (0-3) Neutrophils # (Auto) 9.2 x10^3/uL (1.8-7.7) Lymphocytes # (Auto) 1.2 x10^3/uL (1.0-4.8) Monocytes # (Auto) 0.9 x10^3/uL (0.0-1.1) Eosinophils # (Auto) 0.3 x10^3/uL (0.0-0.7) Basophils # (Auto) 0.0 x10^3/uL (0.0-0.2) BUN/Creatinine Ratio 14 (6-20) Total Bilirubin 0.6 mg/dL (0.2-1.0) Aspartate Amino Transf (AST/SGOT) 32 U/L (15-37) Alanine Aminotransferase (ALT/SGPT) 10 U/L (14-59) Alkaline Phosphatase 114 U/L (46-116) Total Protein 6.5 g/dL (6.4-8.2) Albumin 3.1 g/dL (3.4-5.0) Albumin/Globulin Ratio 0.9 (1.0-1.7) Prothrombin Time 24.5 SEC (11.7-14.0) Prothromb Time International Ratio 2.2 (0.8-1.1) Review of Systems Review of Systems: Complains of weakness Complains of hunger Assessment and Plan Assessmemt and Plan Problems Medical Problems: (1) Hyperkalemia Status: Acute (2) Tachyarrhythmia Status: Acut V. tach and a elderly female with the above-noted comorbidities Plan Cardiac monitoring Negative chronotropic agents Await further cardiology input Home meds DVT prophylaxis O2 per nasal cannula Wound care Long-term prognosis guarded Hopefully she can get back to custodial when we are done with this hospitalization Comment Review of Relevant I have reviewed the following items prakash (where applicable) has been applied. Medications: Current Medications Medications (Trade) Dose Ordered Sig/Reji Route PRN Reason Start Time Stop Time Status Last Admin Dose Admin Calcium Gluconate (Calcium Gluconate) 1,000 mg 1X ONCE IVP 06/12/19 15:15 06/12/19 15:16 DC 06/12/19 16:01 Insulin Human Regular (HumuLIN R VIAL) 10 unit 1X ONCE IV 06/12/19 15:15 06/12/19 15:16 DC 06/12/19 16:08 Dextrose (Dextrose 50%-Water Syringe) 25 gm 1X ONCE IV 06/12/19 15:15 06/12/19 15:16 DC 06/12/19 16:09 Furosemide (Lasix) 20 mg 1X ONCE IVP 06/12/19 15:30 06/12/19 15:31 DC 06/12/19 16:04 Sodium Chloride 1,000 ml @ 1,000 mls/hr 1X ONCE IV 06/12/19 15:30 06/12/19 16:29 DC 06/12/19 14:27 Etomidate (Amidate) 10 mg 1X ONCE IV 06/12/19 15:30 06/12/19 15:31 DC 06/12/19 14:28 Sodium Polystyrene Sulfonate (Kayexalate) 15 gm 1X ONCE PO 06/12/19 16:15 06/12/19 16:16 DC 06/12/19 18:26 Amiodarone HCl 150 mg/Dextrose 103 ml @ 600 mls/hr 1X ONCE IV 06/12/19 17:00 06/12/19 17:10 DC 06/12/19 17:46 Amiodarone HCl 450 mg/Dextrose 259 ml @ 0 mls/hr CONT PRN IV SEE I/O RECORD 06/12/19 17:00 06/13/19 16:59 06/13/19 00:56 Sodium Chloride 1,000 ml @ 75 mls/hr 1X ONCE IV 06/12/19 18:30 06/13/19 07:49 DC 06/12/19 18:30 Levothyroxine Sodium (Synthroid) 175 mcg DAILY06 PO 06/13/19 06:00 06/13/19 05:39 Mirtazapine (Remeron) 7.5 mg QHS PO 06/12/19 21:00 06/12/19 20:42 Pantoprazole Sodium (Protonix) 40 mg DAILYAC PO 06/13/19 07:30 06/13/19 05:39 Ropinirole HCl (Requip) 0.25 mg BID PO 06/12/19 21:00 06/13/19 08:24 Miscellaneous (Lidoderm Patch Removal) 1 ea QHS MC 06/12/19 21:00 06/12/19 20:55 Warfarin Sodium (Coumadin) 2.5 mg DAILY16 PO 06/12/19 20:00 06/12/19 20:42 Oxycodone/ Acetaminophen (Percocet 10/325) 1 tab PRN Q8HRS PRN PO PAIN 06/12/19 21:15 06/13/19 08:24 Nitroglycerin/ Dextrose 250 ml @ 1.5 mls/hr CONT PRN IV SEE I/O RECORD 06/13/19 01:45 06/13/19 02:18 Ceftriaxone Sodium (Rocephin) 1 gm Q24H IVP 06/13/19 09:00 06/13/19 09:31 Metoprolol Tartrate (Lopressor) 25 mg BID PO 06/13/19 09:00 06/13/19 09:28 Clopidogrel Bisulfate (Plavix) 75 mg 1X ONCE PO 06/13/19 09:00 06/13/19 09:01 DC 06/13/19 09:31 TED LAURENT III DO Jun 13, 2019 10:55
--- NOTE | 2019-06-13 12:36 | NUR ---
Pharmacy Warfarin Dosing Note S:Pharmacy consulted to assist with anticoagulation therapy started with target INR: 2 -3 O:JOSE MAURO is a 88 year old F with Atrial Fibrillation LABS: Last INR: 2.2 Last HGB: 11.8 Last HCT: 37.3 Last PLT: 172 Last dose of given on at Previous Regimen: 2.5 MG/D Vitamin K given: Drug Interaction Changes: Ongoing Drug Interactions: A:INR of 2.2 is within desired range. Target range for this patient is: 2 -3 P: Warfarin dose: 2.5 mg Today at 1600 Bridge Therapy: None Next INR due TOMORROW. Pharmacy anticoagulation service will continue to follow. PAU DAIGLE RPH, 06/13/19 2106
[2019-06-13] MEDS ORDERED: FUROSEMIDE 40 MG/4 ML VIAL. IVP ONE (12:45)
--- NOTE | 2019-06-13 12:53 | PDOC ---
HEVER PHILLIP TELEVISION EQUIPMENT OPERATOR 06/13/19 1253: CARDIO Progress Notes Date and Time Date of Service 06/13/2019 Time of Evaluation 1150 Subjective Subjective: No Chest Pain, No Palpitations, Other (STill has some SOA) Vitals Vitals Vital Signs Date Time Temp Pulse Resp B/P (MAP) Pulse Ox O2 Delivery O2 Flow Rate FiO2 06/13/19 11:29 97.8 51 20 163/71 (101) 97 Nasal Cannula 2.0 97.8 Weight Weight [ ] Input and Output Intake and Output Intake and Output 06/13/19 07:00 Intake Total 1900 ml Output Total 150 ml Balance 1750 ml Intake Oral 900 ml IV Total 1000 ml Output Urine Total 150 ml # Voids 9 # Bowel Movements 3 Laboratory Labs Laboratory Tests Test 06/12/19 14:20 06/12/19 14:27 06/12/19 15:56 06/12/19 19:40 White Blood Count 9.8 x10^3/uL (4.0-11.0) Red Blood Count 4.83 x10^6/uL (3.50-5.40) Hemoglobin 12.9 g/dL (12.0-15.5) Hematocrit 40.3 % (36.0-47.0) Mean Corpuscular Volume 83 fL (79-100) Mean Corpuscular Hemoglobin 27 pg (25-35) Mean Corpuscular Hemoglobin Concent 32 g/dL (31-37) Red Cell Distribution Width 18.4 % (11.5-14.5) Platelet Count 206 x10^3/uL (140-400) Neutrophils (%) (Auto) 82 % (31-73) Lymphocytes (%) (Auto) 12 % (24-48) Monocytes (%) (Auto) 6 % (0-9) Eosinophils (%) (Auto) 0 % (0-3) Basophils (%) (Auto) 0 % (0-3) Neutrophils # (Auto) 8.0 x10^3/uL (1.8-7.7) Lymphocytes # (Auto) 1.1 x10^3/uL (1.0-4.8) Monocytes # (Auto) 0.5 x10^3/uL (0.0-1.1) Eosinophils # (Auto) 0.0 x10^3/uL (0.0-0.7) Basophils # (Auto) 0.0 x10^3/uL (0.0-0.2) Sodium Level 136 mmol/L (136-145) Potassium Level 6.1 mmol/L (3.5-5.1) Chloride Level 101 mmol/L (98-107) Carbon Dioxide Level 28 mmol/L (21-32) Anion Gap 7 (6-14) Blood Urea Nitrogen 20 mg/dL (7-20) Creatinine 1.8 mg/dL (0.6-1.0) Estimated GFR (Cockcroft-Gault) 26.5 BUN/Creatinine Ratio 11 (6-20) Glucose Level 157 mg/dL (70-99) Calcium Level 9.3 mg/dL (8.5-10.1) Magnesium Level 2.0 mg/dL (1.8-2.4) Total Bilirubin 0.4 mg/dL (0.2-1.0) Aspartate Amino Transf (AST/SGOT) 18 U/L (15-37) Alanine Aminotransferase (ALT/SGPT) 9 U/L (14-59) Alkaline Phosphatase 128 U/L (46-116) Troponin I Quantitative 0.214 ng/mL (0.000-0.055) 2.800 ng/mL (0.000-0.055) [id number]-Type Natriuretic Peptide 5093 pg/mL (0-449) Total Protein 7.1 g/dL (6.4-8.2) Albumin 3.4 g/dL (3.4-5.0) Albumin/Globulin Ratio 0.9 (1.0-1.7) Thyroid Stimulating Hormone (TSH) 2.502 uIU/mL (0.358-3.74) Prothrombin Time 23.8 SEC (11.7-14.0) Prothromb Time International Ratio 2.2 (0.8-1.1) Glucose (Fingerstick) 95 mg/dL (70-99) Digoxin Level 2.8 ng/mL (0.9-2.0) Digoxin Last Dose Date 06/11/19 Digoxin Last Dose Time 0900 Test 06/12/19 23:00 06/13/19 04:05 06/13/19 04:30 06/13/19 10:07 Sodium Level 138 mmol/L (136-145) 139 mmol/L (136-145) Potassium Level 4.7 mmol/L (3.5-5.1) 4.2 mmol/L (3.5-5.1) Chloride Level 101 mmol/L (98-107) 102 mmol/L (98-107) Carbon Dioxide Level 27 mmol/L (21-32) 29 mmol/L (21-32) Anion Gap 10 (6-14) 8 (6-14) Blood Urea Nitrogen 20 mg/dL (7-20) 19 mg/dL (7-20) Creatinine 1.6 mg/dL (0.6-1.0) 1.4 mg/dL (0.6-1.0) Estimated GFR (Cockcroft-Gault) 30.3 35.4 Glucose Level 129 mg/dL (70-99) 115 mg/dL (70-99) Calcium Level 8.6 mg/dL (8.5-10.1) 8.8 mg/dL (8.5-10.1) Troponin I Quantitative 4.898 ng/mL (0.000-0.055) Urine Collection Type Unknown Urine Color Yellow Urine Clarity Clear Urine pH 5.0 Urine Specific [place] 1.015 Urine Protein 30 mg/dL (NEG-TRACE) Urine Glucose (UA) Negative mg/dL (NEG) Urine Ketones (Stick) Negative mg/dL (NEG) Urine Blood Moderate (NEG) Urine Nitrite Positive (NEG) Urine Bilirubin Negative (NEG) Urine Urobilinogen Dipstick 1.0 mg/dL (0.2 mg/dL) Urine Leukocyte Esterase Large (NEG) Urine RBC Occ /HPF (0-2) Urine WBC Tntc /HPF (0-4) Urine Squamous Epithelial Cells Mod /LPF Urine Bacteria Many /HPF (0-FEW) Urine Mucus Mod /LPF White Blood Count 11.7 x10^3/uL (4.0-11.0) Red Blood Count 4.46 x10^6/uL (3.50-5.40) Hemoglobin 11.8 g/dL (12.0-15.5) Hematocrit 37.3 % (36.0-47.0) Mean Corpuscular Volume 84 fL (79-100) Mean Corpuscular Hemoglobin 27 pg (25-35) Mean Corpuscular Hemoglobin Concent 32 g/dL (31-37) Red Cell Distribution Width 17.9 % (11.5-14.5) Platelet Count 172 x10^3/uL (140-400) Neutrophils (%) (Auto) 79 % (31-73) Lymphocytes (%) (Auto) 10 % (24-48) Monocytes (%) (Auto) 8 % (0-9) Eosinophils (%) (Auto) 3 % (0-3) Basophils (%) (Auto) 0 % (0-3) Neutrophils # (Auto) 9.2 x10^3/uL (1.8-7.7) Lymphocytes # (Auto) 1.2 x10^3/uL (1.0-4.8) Monocytes # (Auto) 0.9 x10^3/uL (0.0-1.1) Eosinophils # (Auto) 0.3 x10^3/uL (0.0-0.7) Basophils # (Auto) 0.0 x10^3/uL (0.0-0.2) BUN/Creatinine Ratio 14 (6-20) Total Bilirubin 0.6 mg/dL (0.2-1.0) Aspartate Amino Transf (AST/SGOT) 32 U/L (15-37) Alanine Aminotransferase (ALT/SGPT) 10 U/L (14-59) Alkaline Phosphatase 114 U/L (46-116) Total Protein 6.5 g/dL (6.4-8.2) Albumin 3.1 g/dL (3.4-5.0) Albumin/Globulin Ratio 0.9 (1.0-1.7) Prothrombin Time 24.5 SEC (11.7-14.0) Prothromb Time International Ratio 2.2 (0.8-1.1) Physical Exam HEENT: Neck Supple W Full Motion Chest: Symmetric LUNGS: Other (basilar crackles) Heart: murmurs (2/6 systolic apical murmur), irregularly irregular (AFIB) Abdomen: Soft N/T Extremities: No Calf Tenderness, Other (trace LE edema; right leg cast) Neurology: alert, oriented, follow commands Assessment Assessment 1. Chest pain: due to VT. CP free. 2. Monomorphic VT with underlying hyperkalemia: Post x1 cardioversion no further recurrence 3. NSTEMI: peaked trop at 4.9 due to arrhythmia. 3. Acute on chronic diastolic heart failure: EF at 50% 5. PPM in situ: [facility] for SSS. VVIR single lead. Verified VT for at least 6 hours per interrogation. Normal device 6. Chronic AFIB: paced rhythm with underlying afib 7. Hypertension: mildly elevated. 8. GIOVANNI on CKD3 with hyperkalemia: much improved 9. UTI/constipation: per PCP 10. Elevated digoxin level: 2.8 Recommendations 1. Maintaining paced rhythm with underlying AFIB, no further recurrence of ventricular arrhythmia. Convert to amiodarone PO when drip is complete 2. Plavix x1. Continue statin. Start on imdur. Lasix x1. No further digoxin as she was noted taking this at 250 mcg daily prior to admission. 3. Ischemia part of the differential but ischemic w/u has been deferred recently and pt and family wishes conservative measures. Continue medical treatment 4. Continue Coumadin for stroke prevention 5. DC IVF. Restart PO metoprolol. NOREEN MUNOZ MD 06/13/192049: CARDIO Progress Notes Plan Plan Pt. seen and examined. Agree with above CNC SET UP OPERATOR note. She has mild dyspnea. Denies any angina. Trop noted. Discussed extensively with the patient, family again about r/b/a to cardiac cath for evaluation of dyspnea in the setting of VT, Positive troponin - at this time, patient and family wish conservative mgmt only with medical therapy. Continue warfarin and amiodarone for afib/vt Continue metoprolol, imdur and statin for presumed CAD. Pt. allergic to aspirin Poor intermediate accountant prognosis. Diuresis as tolerated. Supportive care. HEVER PHILLIP APRN Jun 13, 2019 12:53 NOREEN MUNOZ MD Jun 13, 2019 20:50
[2019-06-13] MEDS: ISOSORBIDE MONONITRATE ER 30 MG TAB.ER.24H PO SCH (12:57)
[2019-06-13] MEDS: AMIODARONE HCL 200 MG TABLET. PO SCH (12:58)
--- NOTE | 2019-06-13 13:39 | NUR ---
SS following for discharge planning. SS reviewed pt chart. Pt is from [facility], ; fax [phone]. 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 SS will continue to follow for discharge planning.
[2019-06-13] MEDS ORDERED: amLODIPine BESYLATE 5 MG TABLET PO ONE (16:00)
[2019-06-13] MEDS: WARFARIN 2.5 MG TABLET. PO SCH (16:13)
[2019-06-13] MEDS: METOPROLOL TART IMMED RELEASE 50 MG TABLET. PO SCH (20:34)
[2019-06-13] MEDS: MIRTAZAPINE 7.5 MG TABLET. PO SCH (20:34)
[2019-06-13] MEDS: POLYETHYLENE GLYCOL 3350 17 GM PACKET. PO SCH (20:34)
[2019-06-13] MEDS: PSYLLIUM HUSK (SUGAR FREE) 1 PKT PACKET PO SCH (20:34)
[2019-06-13] MEDS: ATORVASTATIN CALCIUM 10 MG TABLET. PO SCH (20:35)
[2019-06-13] MEDS: PATCH REMOVAL. MC SCH (20:39)
[2019-06-14] MEDS: oxyCODONE/APAP 10/325 1 TAB TABLET PO PRN ×3 (01:34→23:19)
[2019-06-14 03:00] VITALS: BP 200/86
[2019-06-14] MEDS: hydrALAZINE 20 MG/ML VIAL. IVP PRN ×2 (04:31→10:10)
[2019-06-14 05:12] LABS: PROTHROMBIN TIME PATIENT 25.6 SEC (11.7-14.0)
[2019-06-14 05:23] LABS: CALCIUM 8.9 mg/dL (8.5-10.1); GFR 52.2; POTASSIUM 3.7 mmol/L (3.5-5.1)
[2019-06-14] MEDS: LEVOTHYROXINE 175 MCG TABLET PO SCH (06:13)
[2019-06-14 07:00] VITALS: BP 188/77
[2019-06-14] MEDS: PANTOPRAZOLE 40 MG TABLET.DR. PO SCH (07:49)
[2019-06-14] MEDS: cefTRIAXone IV Push 1 GM VIAL. IVP SCH (07:49)
[2019-06-14] MEDS: ISOSORBIDE MONONITRATE ER 30 MG TAB.ER.24H PO SCH (07:50)
[2019-06-14] MEDS: AMIODARONE HCL 200 MG TABLET. PO SCH (07:50)
[2019-06-14] MEDS: rOPINIRole 0.25 MG TABLET. PO SCH ×2 (07:50→19:57)
[2019-06-14] MEDS: LIDOCAINE (700MG/PATCH) PATCH. TD SCH (07:51)
[2019-06-14] MEDS: METOPROLOL TART IMMED RELEASE 50 MG TABLET. PO SCH ×2 (07:51→19:57)
[2019-06-14] MEDS ORDERED: ASPIRIN ENTERIC COATED 81 MG TABLET.DR. PO SCH (08:00)
[2019-06-14 10:39] VITALS: BP 150/68
[2019-06-14] MEDS ORDERED: ONDANSETRON ODT 4 MG TAB.RAPDIS. PO PRN (10:45)
[2019-06-14] MEDS: amLODIPine BESYLATE 10 MG TABLET PO SCH (10:47)
--- NOTE | 2019-06-14 12:05 | PDOC ---
[employer] PROGRESS NOTE Chief Complaint Chief Complaint 0. V. tach status post cardioversion 1. Chest pain: due to VT. CP free. 2. Monomorphic VT with underlying hyperkalemia: Post x1 cardioversion no further recurrence 3. NSTEMI: peaked trop at 4.9 due to arrhythmia. 3. Acute on chronic diastolic heart failure: EF at 50% 5. PPM in situ: [facility] for SSS. VVIR single lead. Verified VT for at least 6 hours per interrogation. Normal device 6. Chronic AFIB: paced rhythm with underlying afib 7. Hypertension: mildly elevated. 8. GIOVANNI on CKD3 with hyperkalemia: much improved 9. UTI/constipation: per PCP 10. Elevated digoxin level: 2.8 Past Medical History: A-Fib, CAD, CHF, Depression, GERD, Heart Disease, Hypertension, Hypothyroid, Seizure, TIA, Other Additional Past Medical Histor: chronic low back pain Past Surgical History: Hysterectomy, Knee Replacement, Pacemaker, Tonsillectomy Additional Past Surgical Histo: 7 low back , lumpectomy L breast, R shoulder replace, R wrist, knee scope History of Present Illness History of Present Illness Ms Germain is an 88yo F w/ PMHx of iron deficiency anemia, pulmonary nodule, renal cysts, A-Fib, CAD, CHF, Depression, GERD, Hypertension, Hypothyroid, Seizure, TIA, PPM in situ, chronic lower back pain who was reported not feeling well at [facility] earlier today. Dr. Ramirez evaluated her and performed an EKG at [facility], found w ith wide complex tachycardia and transferred urgently to the ED despite the patient protesting hospital admission a bit, she was convinced by her daughter and Dr. Ramirez. In ED was found in sustained VT. She received synchronized cardioversion at 200J and converted back to her regular rhythm after 2 shocks with V paced with underlying AFIB. Started on amiodarone infusion. She is recovering from displaced proximal fibular diaphyseal and distal tibial metadiaphyseal fractures and just had a cast placed on her right leg. Her labs were significant for INR 2.1, Na 136, K 6.1, BUN 20, Cr 1.8, glucose 157, BNP 5093, troponin 0.214. [id number] Patient seen and examined on the telemetry floor with her daughter present Patient is intermittently confused appears somewhat weak on oxygen complain of nausea and constipation Review chart Discussed the case with the RN and the patient's daughter [id number] Patient seen and examined with her daughter present Discussed with fuel system maintenance supervisor the labs with the RN and her daughter She has a UTI now We started some Rocephin Overall patient is sitting in bed Seems a little confused On O2 per nasal cannula trying to eat breakfast Vitals/I&O Vitals/I&O: Vital Signs Date Time Temp Pulse Resp B/P (MAP) Pulse Ox O2 Delivery O2 Flow Rate FiO2 06/14/19 10:47 62 150/68 06/14/19 10:39 98.5 24 97 Nasal Cannula 2.0 98.5 I & O 06/13/19 06/13/19 06/14/19 15:00 23:00 07:00 Intake Total 720 ml 150 ml Output Total 600 ml 1800 ml 700 ml Balance -600 ml -1080 ml -550 ml Physical Exam General: Cooperative, mild distress Heart: Regular rate, Normal S1 Lungs: Clear, Crackles Abdomen: Normal bowel sounds, Soft, No tenderness, No hepatosplenomegaly, No masses Extremities: No clubbing, No cyanosis, Other (right leg in cast) Skin: No rashes, No breakdown, No significant lesion Labs Labs: Laboratory Tests Test 06/14/19 04:30 Prothrombin Time 25.6 SEC (11.7-14.0) Prothromb Time International Ratio 2.4 (0.8-1.1) Sodium Level 141 mmol/L (136-145) Potassium Level 3.7 mmol/L (3.5-5.1) Chloride Level 102 mmol/L (98-107) Carbon Dioxide Level 32 mmol/L (21-32) Anion Gap 7 (6-14) Blood Urea Nitrogen 13 mg/dL (7-20) Creatinine 1.0 mg/dL (0.6-1.0) Estimated GFR (Cockcroft-Gault) 52.2 Glucose Level 117 mg/dL (70-99) Calcium Level 8.9 mg/dL (8.5-10.1) Review of Systems Review of Systems: Complains of nausea complains of obstipation Assessment and Plan Assessmemt and Plan Problems Medical Problems: (1) Hyperkalemia Status: Acute (2) Tachyarrhythmia Status: Acute 0. V. tach status post cardioversion 1. Chest pain: due to VT. CP free. 2. Monomorphic VT with underlying hyperkalemia: Post x1 cardioversion no further recurrence 3. NSTEMI: peaked trop at 4.9 due to arrhythmia. 3. Acute on chronic diastolic heart failure: EF at 50% 5. PPM in situ: [facility] for SSS. VVIR single lead. Verified VT for at least 6 hours per interrogation. Normal device 6. Chronic AFIB: paced rhythm with underlying afib 7. Hypertension: mildly elevated. 8. GIOVANNI on CKD3 with hyperkalemia: much improved 9. UTI/constipation: per PCP 10. Elevated digoxin level: 2.8 Past Medical History: A-Fib, CAD, CHF, Depression, GERD, Heart Disease, Hypertension, Hypothyroid, Seizure, TIA, Other Additional Past Medical Histor: chronic low back pain Past Surgical History: Hysterectomy, Knee Replacement, Pacemaker, Tonsillectomy Additional Past Surgical Histo: 7 low back , lumpectomy L breast, R shoulder replace, R wrist, knee scope Plan Cardiac monitoring Negative chronotropic agents Cardiology following Home meds DVT prophylaxis When necessary Zofran Laxatives of choice PT OT Trend labs Hope to discharge back to rehabilitation center Long-term prognosis is guarded and I did talk to the daughter about this and she agrees Comment Review of Relevant I have reviewed the following items prakash (where applicable) has been applied. Medications: Current Medications Medications (Trade) Dose Ordered Sig/Reji Route PRN Reason Start Time Stop Time Status Last Admin Dose Admin Atorvastatin Calcium (Lipitor) 10 mg QHS PO 06/13/19 21:00 06/13/19 20:35 Furosemide (Lasix) 40 mg 1X ONCE IVP 06/13/19 12:45 06/13/19 12:46 DC 06/13/19 12:57 Isosorbide Mononitrate (Imdur) 30 mg DAILY PO 06/13/19 13:00 06/14/19 07:50 Amiodarone HCl (Cordarone) 400 mg DAILY PO 06/13/19 13:00 06/14/19 07:50 Amlodipine Besylate (Norvasc) 5 mg 1X ONCE PO 06/13/19 16:00 06/13/19 16:01 DC 06/13/19 16:13 Hydralazine HCl (Apresoline Inj) 10 mg PRN Q4HRS PRN IVP ELEVATED BP, SEE COMMENTS 06/13/19 16:00 06/14/19 10:10 Metoprolol Tartrate (Lopressor) 50 mg BID PO 06/13/19 21:00 06/14/19 07:51 Ondansetron HCl (Zofran Odt) 4 mg PRN Q6HRS PRN PO NAUSEA/VOMITING 06/14/19 10:45 06/14/19 10:47 Amlodipine Besylate (Norvasc) 10 mg DAILY PO 06/14/19 11:00 06/14/19 10:47 TED LAURENT III DO Jun 14, 2019 12:05
--- NOTE | 2019-06-14 13:18 | NUR ---
Pharmacy Warfarin Dosing Note S: Pharmacy consulted to assist with anticoagulation therapy started O: JOSE MAURO is a 88 year old F with Atrial Fibrillation LABS: Last INR: 2.4 Last HGB: 11.8 Last HCT: 37.3 Last PLT: 172 Last dose of 2.5 mg given on 06/13/19 at 1613 Ongoing Drug Interactions: new order for AMIODARONE A:INR of 2.4 is within desired range. Target range for this patient is: 2 -3 P: Warfarin dose: due to new order for AMIODARONE, decrease maint Coumadin to 2 mg Daily Bridge Therapy: None Next INR due 06/15/19 AM Pharmacy anticoagulation service will continue to follow. LAKISHA CASTANEDA RPH, 06/14/19 [id number]
--- NOTE | 2019-06-14 13:23 | PDOC ---
PROGRESS NOTES Subjective Subjective Has lack of appetite today but denied any chest pain or shortness of breath. Objective Objective Vital Signs Date Time Temp Pulse Resp B/P (MAP) Pulse Ox O2 Delivery O2 Flow Rate FiO2 06/14/19 10:47 62 150/68 06/14/19 10:39 98.5 24 97 Nasal Cannula 2.0 98.5 Intake and Output 06/14/19 07:00 Intake Total 870 ml Output Total 3100 ml Balance -2230 ml Intake Oral 870 ml Output Urine Total 3100 ml # Voids 2 # Bowel Movements 5 Physical Exam Abdomen: Normal bowel sounds, Soft, No tenderness, No masses Heart: Other (HR irregular) Extremities: No clubbing, No cyanosis, Other (right leg in cast) General: Cooperative, mild distress HEENT: Atraumatic, PERRLA Lungs: Clear to auscultation MUSCULOSKELETAL: Other (RLE fracture with cast in place, ! foot movement and sensation. ) Neuro: Normal speech, Normal tone, Reflexes 2+ Psych/Mental Status: Mental status NL, Mood NL Skin: No rashes, No significant lesion Assessment Assessment 1. Chest pain: due to VT. currently CP free. 2. Monomorphic VT with underlying hyperkalemia: Post x1 cardioversion with no further recurrence on telemetry 3. NSTEMI: peaked trop at 4.9 due to arrhythmia. Cardiac catheterization in lieu of non-STEMI and VT was discussed along with the risks and benefits but patient declined it. 3. Acute on chronic diastolic heart failure: EF at 50% 5. PPM in situ: [facility] for SSS. VVIR single lead. Verified VT for at least 6 hours per interrogation. Normal device function 6. Chronic AFIB: Demand paced rhythm with underlying afib. Continue Coumadin for stroke prophylaxis. 7. Hypertension: Better controlled 8. GIOVANNI on CKD3 with hyperkalemia: much improved Plan Plan of Care Problems Medical Problems: (1) Hyperkalemia Status: Acute (2) Tachyarrhythmia Status: Acute Comment Review of Relevant I have reviewed the following items prakash (where applicable) has been applied. Labs Laboratory Tests Test 06/14/19 04:30 Prothrombin Time 25.6 SEC (11.7-14.0) Prothromb Time International Ratio 2.4 (0.8-1.1) Sodium Level 141 mmol/L (136-145) Potassium Level 3.7 mmol/L (3.5-5.1) Chloride Level 102 mmol/L (98-107) Carbon Dioxide Level 32 mmol/L (21-32) Anion Gap 7 (6-14) Blood Urea Nitrogen 13 mg/dL (7-20) Creatinine 1.0 mg/dL (0.6-1.0) Estimated GFR (Cockcroft-Gault) 52.2 Glucose Level 117 mg/dL (70-99) Calcium Level 8.9 mg/dL (8.5-10.1) Medications Current Medications Amlodipine Besylate (Norvasc) 5 mg 1X ONCE PO Last administered on 06/13/19at 16:13; Start 06/13/19 at 16:00; Stop 06/13/19 at 16:01; Status DC Amlodipine Besylate (Norvasc) 10 mg DAILY PO Last administered on 06/14/19at 10:47; Start 06/14/19 at 11:00 Aspirin (Ecotrin) 81 mg DAILYWBKFT PO ; Start 06/14/19 at 08:00; Status UNV Atorvastatin Calcium (Lipitor) 10 mg QHS PO Last administered on 06/13/19at 20:35; Start 06/13/19 at 21:00 Hydralazine HCl (Apresoline Inj) 10 mg PRN Q4HRS PRN IVP ELEVATED BP, SEE COMMENTS Last administered on 06/14/19at 10:10; Start 06/13/19 at 16:00 Metoprolol Tartrate (Lopressor) 50 mg BID PO Last administered on 06/14/19at 07:51; Start 06/13/19 at 21:00 Ondansetron HCl (Zofran Odt) 4 mg PRN Q6HRS PRN PO NAUSEA/VOMITING Last administered on 06/14/19at 10:47; Start 06/14/19 at 10:45 Warfarin Sodium (Coumadin) 2 mg DAILY16 PO ; Start 06/14/19 at 16:00 Vitals/I & O Vital Sign - Last 24 Hours 06/13/19 06/13/19 06/13/19 06/13/19 15:17 16:13 17:46 18:46 Temp 98.5 98.5 Pulse 57 57 Resp 22 B/P (MAP) 180/84 (116) 180/84 Pulse Ox 98 98 98 O2 Delivery Nasal Cannula Nasal Cannula Nasal Cannula O2 Flow Rate 2.0 2.0 2.0 06/13/19 06/13/19 06/13/19 06/13/19 19:00 19:39 20:34 22:43 Temp 98.8 98.6 98.8 98.6 Pulse 54 54 60 Resp 22 24 B/P (MAP) 177/92 (120) 177/92 180/85 (116) Pulse Ox 97 98 O2 Delivery Nasal Cannula Nasal Cannula Nasal Cannula O2 Flow Rate 2.0 2.0 2.0 06/14/19 06/14/19 06/14/19 06/14/19 01:34 02:34 03:00 04:31 Temp 98.6 98.6 Pulse 49 49 Resp 22 B/P (MAP) 200/86 (124) 200/86 Pulse Ox 98 98 97 O2 Delivery Nasal Cannula Nasal Cannula Nasal Cannula O2 Flow Rate 2.0 2.0 2.0 06/14/19 06/14/19 06/14/19 06/14/19 07:00 07:50 07:50 07:51 Temp 98.4 98.4 Pulse 63 60 60 Resp 22 B/P (MAP) 188/77 (114) 188/77 188/77 188/77 Pulse Ox 98 O2 Delivery Room Air 06/14/19 06/14/19 06/14/19 06/14/19 08:07 10:10 10:39 10:47 Temp 98.5 98.5 Pulse 61 62 Resp 24 B/P (MAP) 191/78 150/68 (95) 150/68 Pulse Ox 97 O2 Delivery Nasal Cannula Nasal Cannula O2 Flow Rate 2.0 2.0 Intake and Output 0 06/13/19 06/13/19 06/14/19 15:00 23:00 07:00 Intake Total 720 ml 150 ml Output Total 600 ml 1800 ml 700 ml Balance -600 ml -1080 ml -550 ml SARAH CHAHAL MD Jun 14, 2019 13:23
[2019-06-14 14:58] VITALS: BP 163/70
[2019-06-14] MEDS: WARFARIN 2 MG TABLET. PO SCH (17:18)
[2019-06-14 19:10] VITALS: BP 156/68
[2019-06-14] MEDS: POLYETHYLENE GLYCOL 3350 17 GM PACKET. PO SCH (19:52)
[2019-06-14] MEDS: PSYLLIUM HUSK (SUGAR FREE) 1 PKT PACKET PO SCH (19:52)
[2019-06-14] MEDS: PATCH REMOVAL. MC SCH (19:56)
[2019-06-14] MEDS: ATORVASTATIN CALCIUM 10 MG TABLET. PO SCH (19:56)
[2019-06-14] MEDS: LACTOBACILLUS RHAMNOSUS GG 1 CAPSULE. PO SCH (19:56)
[2019-06-14] MEDS: MIRTAZAPINE 7.5 MG TABLET. PO SCH (19:57)
[2019-06-14 23:15] VITALS: BP 193/81
[2019-06-15] VITALS (7 sets, daily range): BP systolic 146–204; BP diastolic 65–84
[2019-06-15] MEDS: hydrALAZINE 20 MG/ML VIAL. IVP PRN (03:30)
[2019-06-15 04:13] LABS: PROTHROMBIN TIME PATIENT 26.8 SEC (11.7-14.0)
[2019-06-15 04:19] LABS: CALCIUM 8.9 mg/dL (8.5-10.1); GFR 52.2; POTASSIUM 3.7 mmol/L (3.5-5.1)
[2019-06-15] MEDS: LEVOTHYROXINE 175 MCG TABLET PO SCH (06:00)
[2019-06-15] MEDS: cefTRIAXone IV Push 1 GM VIAL. IVP SCH (08:32)
[2019-06-15] MEDS: LACTOBACILLUS RHAMNOSUS GG 1 CAPSULE. PO SCH ×2 (08:33→21:21)
[2019-06-15] MEDS: amLODIPine BESYLATE 10 MG TABLET PO SCH (08:33)
[2019-06-15] MEDS: PANTOPRAZOLE 40 MG TABLET.DR. PO SCH (08:33)
[2019-06-15] MEDS: rOPINIRole 0.25 MG TABLET. PO SCH ×2 (08:34→21:21)
[2019-06-15] MEDS: ISOSORBIDE MONONITRATE ER 30 MG TAB.ER.24H PO SCH (08:34)
[2019-06-15] MEDS: AMIODARONE HCL 200 MG TABLET. PO SCH (08:34)
[2019-06-15] MEDS: METOPROLOL TART IMMED RELEASE 50 MG TABLET. PO SCH ×2 (08:35→21:21)
[2019-06-15] MEDS: oxyCODONE/APAP 10/325 1 TAB TABLET PO PRN ×2 (08:35→21:21)
--- NOTE | 2019-06-15 09:45 | NUR ---
Pharmacy Warfarin Dosing Note S: Pharmacy consulted to assist with anticoagulation therapy started O: JOSE MAURO is a 88 year old F with Atrial Fibrillation LABS: Last INR: 2.5 Last HGB: 11.8 Last HCT: 37.3 Last PLT: 172 Last dose of 2 mg given on 06/14/19 at 1718 Ongoing Drug Interactions: AMIODARONE A:INR of 2.5 is within desired range. Target range for this patient is: 2 -3 P: Warfarin dose: 2 mg Daily Bridge Therapy: None Next INR due 06/16/19 AM Pharmacy anticoagulation service will continue to follow. LAKISHA CASTANEDA RPH, 06/15/19 [id number]
--- NOTE | 2019-06-15 09:50 | PDOC ---
PROGRESS NOTES Chief Complaint Chief Complaint impression 0. V. tach status post cardioversion 1. Chest pain: due to VT. CP free. 2. Monomorphic VT with underlying hyperkalemia: Post x1 cardioversion no further recurrence 3. NSTEMI: peaked trop at 4.9 due to arrhythmia. 3. Acute on chronic diastolic heart failure: EF at 50% 5. PPM in situ: [facility] for SSS. VVIR single lead. Verified VT for at least 6 hours per interrogation. Normal device 6. Chronic AFIB: paced rhythm with underlying afib 7. Hypertension: mildly elevated. 8. GIOVANNI on CKD3 with hyperkalemia: much improved 9. UTI/constipation: per PCP 10. Elevated digoxin level: 2.8 Past Medical History: A-Fib, CAD, CHF, Depression, GERD, Heart Disease, Hypertension, Hypothyroid, Seizure, TIA, Other Additional Past Medical Histor: chronic low back pain Past Surgical History: Hysterectomy, Knee Replacement, Pacemaker, Tonsillectomy Additional Past Surgical Histo: 7 low back , lumpectomy L breast, R shoulder replace, R wrist, knee scope History of Present Illness History of Present Illness Ms Germain is an 88yo F w/ PMHx of iron deficiency anemia, pulmonary nodule, renal cysts, A-Fib, CAD, CHF, Depression, GERD, Hypertension, Hypothyroid, Seizure, TIA, PPM in situ, chronic lower back pain who was reported not feeling well at SNF earlier today. Dr. Ramirez evaluated her and performed an EKG at SNF, found with wide complex tachycardia and transferred urgently to the ED despite the patient protesting hospital admission a bit, she was convinced by her daughter and Dr. Ramirez. In ED was found in sustained VT. She received synchronized cardioversion at 200J and converted back to her regular rhythm after 2 shocks with V paced with underlying AFIB. Started on amiodarone infusion. She is recovering from displaced proximal fibular diaphyseal and distal tibial metadiaphyseal fractures and just had a cast placed on her right leg. Her labs were significant for INR 2.1, Na 136, K 6.1, BUN 20, Cr 1.8, glucose 157, BNP 5093, troponin 0.214. [id number] Patient seen and examined on the telemetry floor somewhat weak on oxygen complain of nausea and constipation Review chart Discussed the case with the RN [id number] Patient seen and examined with her daughter present Discussed with inside sales advisor the labs with the RN and her daughter She has a UTI now We started some Rocephin Overall patient is sitting in bed Seems a little confused On O2 per nasal cannula trying to eat breakfast Vitals Vitals Vital Signs Date Time Temp Pulse Resp B/P (MAP) Pulse Ox O2 Delivery O2 Flow Rate FiO2 06/15/19 09:42 18 96 Nasal Cannula 2.0 06/15/19 08:35 60 171/76 06/15/19 07:05 98.5 98.5 Physical Exam General: Alert, Oriented X3, Cooperative, No acute distress Heart: Regular rate, Other (HR irregular) Lungs: Clear, Crackles Abdomen: Normal bowel sounds, Soft, No tenderness, No masses Extremities: No clubbing, No cyanosis, Other (right leg in cast) Skin: No rashes, No significant lesion Labs LABS CHEST AP ONLY Clinical Indication: Short of breath Comparison: 05/12/2019 portable chest x-ray exam. Findings: Portable semiupright frontal view of the chest was obtained. Single lead left-sided pacemaker is present. The cardiomediastinal silhouette is normal. Pulmonary vasculature is borderline. Right lateral mid to lower thoracic opacity is moderately improved compared to the prior exam. There is no pneumothorax. No pleural effusion is appreciated. No acute bone abnormality. Right shoulder prosthesis is present. Left sided single lead pacemaker is present. IMPRESSION: Moderate improvement in right lower lung field opacity is present. No suspicious interval change. Electronically signed by: Ugo Diego MD (06/12/2019 3:28 PM) [facility] DICTATED and SIGNED BY: UGO DIEGO MD DATE: 06/12/19 1528 ABDOMEN SUPINE UPRIGHT History: Lower abdominal pain. Technique: Upright and supine views of the abdomen. Comparison: CT December 31, 2018. Chest x-ray June 12, 2019 Findings: Patchy basilar opacities better evaluated on chest x-ray. No pneumoperitoneum. Several nondilated air-filled loops of small bowel. Air and stool scattered throughout the imaged colon. Moderate proximal colonic stool. Postop changes right hip. L2 vertebroplasty. Vascular calcifications.Multilevel lumbar spondylosis. Possible L3 superior endplate compression fracture compared to prior CT. Impression: 1. Nonobstructed bowel gas pattern. 2. Possible interval L3 superior endplate compression fracture compared to prior CT. Recommend dedicated lumbar radiographs to further assess. Electronically signed by: Tye Bernstein DO (06/12/2019 4:47 PM) [id number] DICTATED and SIGNED BY: TYE BERNSTEIN DO DATE: 06/12/19 1647 Laboratory Tests Test 06/15/19 04:00 Prothrombin Time 26.8 SEC (11.7-14.0) Prothromb Time International Ratio 2.5 (0.8-1.1) Sodium Level 140 mmol/L (136-145) Potassium Level 3.7 mmol/L (3.5-5.1) Chloride Level 103 mmol/L (98-107) Carbon Dioxide Level 32 mmol/L (21-32) Anion Gap 5 (6-14) Blood Urea Nitrogen 16 mg/dL (7-20) Creatinine 1.0 mg/dL (0.6-1.0) Estimated GFR (Cockcroft-Gault) 52.2 Glucose Level 110 mg/dL (70-99) Calcium Level 8.9 mg/dL (8.5-10.1) Assessment and Plan Assessmemt and Plan Problems Medical Problems: (1) Hyperkalemia Status: Acute (2) Tachyarrhythmia Status: Acute Comment Review of Relevant I have reviewed the following items prakash (where applicable) has been applied. Labs Laboratory Tests Test 06/13/19 10:07 06/14/19 04:30 06/15/19 04:00 Prothrombin Time 24.5 SEC (11.7-14.0) 25.6 SEC (11.7-14.0) 26.8 SEC (11.7-14.0) Prothromb Time International Ratio 2.2 (0.8-1.1) 2.4 (0.8-1.1) 2.5 (0.8-1.1) Sodium Level 141 mmol/L (136-145) 140 mmol/L (136-145) Potassium Level 3.7 mmol/L (3.5-5.1) 3.7 mmol/L (3.5-5.1) Chloride Level 102 mmol/L (98-107) 103 mmol/L (98-107) Carbon Dioxide Level 32 mmol/L (21-32) 32 mmol/L (21-32) Anion Gap 7 (6-14) 5 (6-14) Blood Urea Nitrogen 13 mg/dL (7-20) 16 mg/dL (7-20) Creatinine 1.0 mg/dL (0.6-1.0) 1.0 mg/dL (0.6-1.0) Estimated GFR (Cockcroft-Gault) 52.2 52.2 Glucose Level 117 mg/dL (70-99) 110 mg/dL (70-99) Calcium Level 8.9 mg/dL (8.5-10.1) 8.9 mg/dL (8.5-10.1) Laboratory Tests Test 06/15/19 04:00 Prothrombin Time 26.8 SEC (11.7-14.0) Prothromb Time International Ratio 2.5 (0.8-1.1) Sodium Level 140 mmol/L (136-145) Potassium Level 3.7 mmol/L (3.5-5.1) Chloride Level 103 mmol/L (98-107) Carbon Dioxide Level 32 mmol/L (21-32) Anion Gap 5 (6-14) Blood Urea Nitrogen 16 mg/dL (7-20) Creatinine 1.0 mg/dL (0.6-1.0) Estimated GFR (Cockcroft-Gault) 52.2 Glucose Level 110 mg/dL (70-99) Calcium Level 8.9 mg/dL (8.5-10.1) Microbiology 06/13/19 Urine Culture - Preliminary, Resulted 06/13/19 Urine Culture Result 1 (ARACELI) - Preliminary, Resulted Medications Current Medications Etomidate (Amidate) 20 mg STK-MED ONCE IV ; Start 06/12/19 at 15:06; Stop 06/12/19 at 15:06; Status DC Calcium Gluconate (Calcium Gluconate) 1,000 mg 1X ONCE IVP Last administered on 06/12/19at 16:01; Start 06/12/19 at 15:15; Stop 06/12/19 at 15:16; Status DC Insulin Human Regular (HumuLIN R VIAL) 10 unit 1X ONCE IV Last administered on 06/12/19at 16:08; Start 06/12/19 at 15:15; Stop 06/12/19 at 15:16; Status DC Dextrose (Dextrose 50%-Water Syringe) 25 gm 1X ONCE IV Last administered on at 16:09; Start 06/12/19 at 15:15; Stop 06/12/19 at 15:16; Status DC Furosemide (Lasix) 20 mg 1X ONCE IVP Last administered on 06/12/19at 16:04; Start 06/12/19 at 15:30; Stop 06/12/19 at 15:31; Status DC Sodium Chloride 1,000 ml @ 1,000 mls/hr 1X ONCE IV Last administered on 06/12/19at 14:27; Start 06/12/19 at 15:30; Stop 06/12/19 at 16:29; Status DC Etomidate (Amidate) 10 mg 1X ONCE IV Last administered on 06/12/19at 14:28; Start 06/12/19 at 15:30; Stop 06/12/19 at 15:31; Status DC Ondansetron HCl (Zofran) 4 mg PRN Q8HRS PRN IV NAUSEA/VOMITING; Start 06/12/19 at 16:00; Stop 06/13/19 at 15:59; Status DC Sodium Polystyrene Sulfonate (Kayexalate) 15 gm 1X ONCE PO Last administered on 06/12/19at 18:26; Start 06/12/19 at 16:15; Stop 06/12/19 at 16:16; Status DC Amiodarone HCl 150 mg/Dextrose 103 ml @ 600 mls/hr 1X ONCE IV Last administered on 06/12/19at 17:46; Start 06/12/19 at 17:00; Stop 06/13/19 at 12:27; Status DC Amiodarone HCl 450 mg/Dextrose 259 ml @ 0 mls/hr CONT PRN IV SEE I/O RECORD Last administered on 06/13/19at 00:56; Start 06/12/19 at 17:00; Stop 06/13/19 at 12:27; Status DC Sodium Chloride 1,000 ml @ 75 mls/hr 1X ONCE IV Last administered on 06/12/19at 18:30; Start 06/12/19 at 18:30; Stop 06/13/19 at 07:49; Status DC Levothyroxine Sodium (Synthroid) 175 mcg DAILY06 PO Last administered on 06/15/19at 06:00; Start 06/13/19 at 06:00 Lidocaine (Lidoderm) 1 patch DAILY TD Last administered on 06/14/19at 07:51; Start 06/13/19 at 09:00 Mirtazapine (Remeron) 7.5 mg QHS PO Last administered on 06/14/19at 19:57; Start 06/12/19 at 21:00 Pantoprazole Sodium (Protonix) 40 mg DAILYAC PO Last administered on 06/15/19at 08:33; Start 06/13/19 at 07:30 Ropinirole HCl (Requip) 0.25 mg BID PO Last administered on 06/15/19at 08:34; Start 06/12/19 at 21:00 Diltiazem HCl (Cardizem 24hr Cd) 240 mg DAILYWSUP PO ; Start 06/12/19 at 18:30; Stop 06/12/19 at 21:04; Status DC Miscellaneous (Lidoderm Patch Removal) 1 ea QHS MC Last administered on 06/12/19at 20:55; Start 06/12/19 at 21:00 Warfarin Sodium (Coumadin) 2.5 mg DAILY16 PO Last administered on 06/13/19at 16:13; Start 06/12/19 at 20:00; Stop 06/14/19 at 13:16; Status DC Oxycodone/ Acetaminophen (Percocet 10/325) 1 tab PRN Q8HRS PRN PO PAIN Last administered on 06/15/19at 08:35; Start 06/12/19 at 21:15 Polyethylene Glycol (miraLAX PACKET) 17 gm QHS PO Last administered on 06/13/19at 20:34; Start 06/12/19 at 21:30 Psyllium Hydrophilic Mucilloid (Metamucil Fiber Packet) 1 pkt QHS PO Last administered on 06/13/19at 20:34; Start 06/12/19 at 21:30 Nitroglycerin/ Dextrose 250 ml @ 1.5 mls/hr CONT PRN IV SEE I/O RECORD Last administered on 06/13/19at 02:18; Start 06/13/19 at 01:45; Stop 06/13/19 at 12:27; Status DC Pantoprazole Sodium (Protonix) 40 mg STK-MED ONCE PO ; Start 06/13/19 at 05:35; Stop 06/13/19 at 05:35; Status DC Warfarin Sodium (Coumadin Per Pharmacy) 1 each PRN DAILY PRN MC SEE COMMENTS Last administered on 06/15/19at 09:45; Start 06/13/19 at 08:15 Ceftriaxone Sodium (Rocephin) 1 gm Q24H IVP Last administered on 06/15/19at 08:32; Start 06/13/19 at 09:00 Aspirin (Ecotrin) 81 mg DAILYWBKFT PO ; Start 06/14/19 at 08:00; Status UNV Metoprolol Tartrate (Lopressor) 25 mg BID PO Last administered on 06/13/19at 09:28; Start 06/13/19 at 09:00; Stop 06/13/19 at 15:53; Status DC Atorvastatin Calcium (Lipitor) 10 mg QHS PO Last administered on 06/14/19at 19:56; Start 06/13/19 at 21:00 Clopidogrel Bisulfate (Plavix) 75 mg 1X ONCE PO Last administered on 06/13/19at 09:31; Start 06/13/19 at 09:00; Stop 06/13/19 at 09:01; Status DC Furosemide (Lasix) 40 mg 1X ONCE IVP Last administered on 06/13/19at 12:57; Start 06/13/19 at 12:45; Stop 06/13/19 at 12:46; Status DC Isosorbide Mononitrate (Imdur) 30 mg DAILY PO Last administered on 06/15/19at 08:34; Start 06/13/19 at 13:00 Amiodarone HCl (Cordarone) 400 mg DAILY PO Last administered on 06/15/19at 08:34; Start 06/13/19 at 13:00 Amlodipine Besylate (Norvasc) 5 mg 1X ONCE PO Last administered on 06/13/19at 16:13; Start 06/13/19 at 16:00; Stop 06/13/19 at 16:01; Status DC Hydralazine HCl (Apresoline Inj) 10 mg PRN Q4HRS PRN IVP ELEVATED BP, SEE COMMENTS Last administered on 06/15/19at 03:30; Start 06/13/19 at 16:00 Metoprolol Tartrate (Lopressor) 50 mg BID PO Last administered on 06/15/19at 08:35; Start 06/13/19 at 21:00 Ondansetron HCl (Zofran Odt) 4 mg PRN Q6HRS PRN PO NAUSEA/VOMITING Last administered on 06/14/19at 10:47; Start 06/14/19 at 10:45 Amlodipine Besylate (Norvasc) 10 mg DAILY PO Last administered on 06/15/19at 08:33; Start 06/14/19 at 11:00 Warfarin Sodium (Coumadin) 2 mg DAILY16 PO Last administered on 06/14/19at 17:18; Start 06/14/19 at 16:00 Lactobacillus Rhamnosus (Culturelle) 1 cap BID PO Last administered on 0at 08:33; Start 06/14/19 at 21:00 Active Scripts Active Lidocaine PATCH (Lidocaine) 1 Each Adh..patch 1 Patch TD DAILY 30 Days Reported Tramadol Hcl 50 Mg Tablet 50 Mg PO Q6HRS PRN Acetaminophen 325 Mg Tablet 2 Tab PO PRN Q4-6HRS PRN 24 Days Tizanidine Hcl 4 Mg Tablet 2 Mg PO TID Oxycodone-Acetaminophen 10-325 (Oxycodone Hcl/Acetaminophen) 1 Each Tablet 1 Tab PO TID Melatonin 5 Mg Capsule 1 Cap PO QHS 30 Days Percocet 10-325 Mg Tablet (Oxycodone/Acetaminophen) 1 Each Tablet 1 Tab PO PRN Q8HRS PRN Requip (Ropinirole Hcl) 0.25 Mg Tablet 0.25 Mg PO BID Mirtazapine 15 Mg Tablet 7.5 Mg PO QHS Matzim La (Diltiazem Hcl) 240 Mg Tab.er.24h 240 Mg PO DAILYWSUP Klor-Con M20 (Potassium Chloride) 20 Meq Tab.er.prt 20 Meq PO DAILY16 Lasix (Furosemide) 80 Mg Tablet 40 Mg PO DAILY Digoxin 125 Mcg Tablet 125 Mcg PO DAILY Protonix (Pantoprazole Sodium) 40 Mg Tablet.dr 40 Mg PO DAILY Levothyroxine Sodium 125 Mcg Tablet 175 Mcg PO DAILYAC Warfarin Sodium 5 Mg Tablet 2.5 Mg PO DAILY16 Neurontin (Gabapentin) 300 Mg Capsule 300 Mg PO TID Lisinopril 40 Mg Tablet 40 Mg PO DAILY Vitals/I & O Vital Sign - Last 24 Hours 06/14/19 06/14/19 06/14/19 06/14/19 10:10 10:39 10:47 14:29 Temp 98.5 98.5 Pulse 61 62 Resp 24 B/P (MAP) 191/78 150/68 (95) 150/68 Pulse Ox 97 97 O2 Delivery Nasal Cannula Nasal Cannula O2 Flow Rate 2.0 2.0 06/14/19 06/14/19 06/14/19 06/14/19 14:58 15:29 19:10 19:57 Temp 98.1 97.5 98.1 97.5 Pulse 59 61 61 Resp 24 18 20 B/P (MAP) 163/70 (101) 156/68 (97) 156/68 Pulse Ox 97 97 94 O2 Delivery Nasal Cannula Nasal Cannula Nasal Cannula O2 Flow Rate 2.0 2.0 2.0 06/14/19 06/14/19 06/14/19 06/15/19 20:00 23:15 23:19 00:19 Temp 97.7 97.7 Pulse 60 Resp 18 B/P (MAP) 193/81 (118) Pulse Ox 99 94 94 O2 Delivery Nasal Cannula Nasal Cannula Nasal Cannula Nasal Cannula O2 Flow Rate 2.0 2.0 2.0 2.0 06/15/19 06/15/19 06/15/19 06/15/19 03:10 03:30 05:00 07:05 Temp 98.0 98.5 98.0 98.5 Pulse 52 54 62 63 Resp 18 B/P (MAP) 204/84 (124) 203/84 181/77 (111) 171/76 (107) Pulse Ox 99 96 O2 Delivery Nasal Cannula Nasal Cannula O2 Flow Rate 2.0 2.0 06/15/19 06/15/19 06/15/19 06/15/19 07:45 08:33 08:34 08:34 Pulse 60 60 60 B/P (MAP) 171/76 171/76 171/76 O2 Delivery Nasal Cannula O2 Flow Rate 2.0 06/15/19 06/15/19 06/15/19 08:35 08:35 09:42 Pulse 60 Resp 20 18 B/P (MAP) 171/76 Pulse Ox 96 96 O2 Delivery Nasal Cannula Nasal Cannula O2 Flow Rate 2.0 2.0 Intake and Output 06/14/19 06/14/19 06/15/19 15:00 23:00 07:00 Intake Total 340 ml 200 ml Output Total 250 ml 200 ml Balance 90 ml 0 ml REBECCA IRIZARRY MD Jun 15, 2019 09:50
[2019-06-15] MEDS: LIDOCAINE (700MG/PATCH) PATCH. TD SCH (10:44)
--- NOTE | 2019-06-15 11:19 | PDOC ---
PROGRESS NOTES Subjective Subjective Denied any chest pain today. Objective Objective Vital Signs Date Time Temp Pulse Resp B/P (MAP) Pulse Ox O2 Delivery O2 Flow Rate FiO2 06/15/19 10:52 98.6 56 146/65 (92) 98 Nasal Cannula 2.0 98.6 06/15/19 09:42 18 Intake and Output 06/15/19 07:00 Intake Total 540 ml Output Total 450 ml Balance 90 ml Intake Oral 540 ml Output Urine Total 450 ml Physical Exam Abdomen: Normal bowel sounds, Soft, No tenderness, No masses Heart: Other (HR irregular) Extremities: No clubbing, No cyanosis, Other (right leg in cast) General: Cooperative, mild distress HEENT: Atraumatic, PERRLA Lungs: Clear to auscultation MUSCULOSKELETAL: Other (RLE fracture with cast in place, ! foot movement and sensation. ) Neuro: Normal speech, Normal tone, Reflexes 2+ Psych/Mental Status: Mental status NL, Mood NL Skin: No rashes, No significant lesion Assessment Assessment 1. Chest pain: due to VT. currently CP free. 2. Monomorphic VT with underlying hyperkalemia: Post x1 cardioversion with no further recurrence on telemetry 3. NSTEMI: peaked trop at 4.9 due to arrhythmia. Cardiac catheterization in lieu of non-STEMI and VT was discussed along with the risks and benefits but patient declined it. 3. Acute on chronic diastolic heart failure: EF at 50%, well compensated 5. PPM in situ: [facility] for SSS. VVIR single lead. Verified VT for at least 6 hours per interrogation. Normal device function 6. Chronic AFIB: Demand paced rhythm with underlying afib. Continue Coumadin for stroke prophylaxis. 7. Hypertension: Better controlled 8. GIOVANNI on CKD3 with hyperkalemia: much improved Plan Plan of Care Problems Medical Problems: (1) Hyperkalemia Status: Acute (2) Tachyarrhythmia Status: Acute Comment Review of Relevant I have reviewed the following items prakash (where applicable) has been applied. Labs Laboratory Tests Test 06/15/19 04:00 Prothrombin Time 26.8 SEC (11.7-14.0) Prothromb Time International Ratio 2.5 (0.8-1.1) Sodium Level 140 mmol/L (136-145) Potassium Level 3.7 mmol/L (3.5-5.1) Chloride Level 103 mmol/L (98-107) Carbon Dioxide Level 32 mmol/L (21-32) Anion Gap 5 (6-14) Blood Urea Nitrogen 16 mg/dL (7-20) Creatinine 1.0 mg/dL (0.6-1.0) Estimated GFR (Cockcroft-Gault) 52.2 Glucose Level 110 mg/dL (70-99) Calcium Level 8.9 mg/dL (8.5-10.1) Microbiology 06/13/19 Urine Culture - Preliminary, Resulted 06/13/19 Urine Culture Result 1 (ARACELI) - Preliminary, Resulted Medications Current Medications Lactobacillus Rhamnosus (Culturelle) 1 cap BID PO Last administered on 06/15/19at 08:33; Start 06/14/19 at 21:00 Warfarin Sodium (Coumadin) 2 mg DAILY16 PO Last administered on 06/14/19at 17:18; Start 06/14/19 at 16:00 Vitals/I & O Vital Sign - Last 24 Hours 06/14/19 06/14/19 06/14/19 06/14/19 14:29 14:58 15:29 19:10 Temp 98.1 97.5 98.1 97.5 Pulse 59 61 Resp 24 18 20 B/P (MAP) 163/70 (101) 156/68 (97) Pulse Ox 97 97 97 94 O2 Delivery Nasal Cannula Nasal Cannula Nasal Cannula Nasal Cannula O2 Flow Rate 2.0 2.0 2.0 2.0 06/14/19 06/14/19 06/14/19 06/14/19 19:57 20:00 23:15 23:19 Temp 97.7 97.7 Pulse 61 60 Resp 18 B/P (MAP) 156/68 193/81 (118) Pulse Ox 99 94 O2 Delivery Nasal Cannula Nasal Cannula Nasal Cannula O2 Flow Rate 2.0 2.0 2.0 06/15/19 06/15/19 06/15/19 06/15/19 00:19 03:10 03:30 05:00 Temp 98.0 98.0 Pulse 52 54 62 Resp 18 B/P (MAP) 204/84 (124) 203/84 181/77 (111) Pulse Ox 94 99 O2 Delivery Nasal Cannula Nasal Cannula O2 Flow Rate 2.0 2.0 06/15/19 06/15/19 06/15/19 06/15/19 07:05 07:45 08:33 08:34 Temp 98.5 98.5 Pulse 63 60 60 B/P (MAP) 171/76 (107) 171/76 171/76 Pulse Ox 96 O2 Delivery Nasal Cannula Nasal Cannula O2 Flow Rate 2.0 2.0 06/15/19 06/15/19 06/15/19 06/15/19 08:34 08:35 08:35 09:42 Pulse 60 60 Resp 20 18 B/P (MAP) 171/76 171/76 Pulse Ox 96 96 O2 Delivery Nasal Cannula Nasal Cannula O2 Flow Rate 2.0 2.0 06/15/19 10:52 Temp 98.6 98.6 Pulse 56 B/P (MAP) 146/65 (92) Pulse Ox 98 O2 Delivery Nasal Cannula O2 Flow Rate 2.0 Intake and Output 06/14/19 06/14/19 06/15/19 15:00 23:00 07:00 Intake Total 340 ml 200 ml Output Total 250 ml 200 ml Balance 90 ml 0 ml SARAH CHAHAL MD Jun 15, 2019 11:19
[2019-06-15] MEDS: GABAPENTIN 300 MG CAPSULE. PO SCH ×2 (13:54→21:21)
--- NOTE | 2019-06-15 14:52 | RAD ---
CHEST AP ONLY History: CHF Comparison: June 12, 2019 Findings: Single view of the chest is submitted. Pericardial cardiac silhouette is again enlarged. There are small bilateral pleural effusions somewhat more apparent on this exam, bibasilar airspace opacity also somewhat greater. There is again right shoulder arthroplasty. There is atherosclerotic calcification near aortic arch. There is again single lead left electronic cardiac device. No pneumothorax is identified. Impression: 1. There are small bilateral pleural effusions with adjacent bibasilar airspace opacity somewhat increased. Findings may be due to sequela of left ventricular failure. Electronically signed by: Oliver Kerr MD (06/15/2019 2:50 PM) [facility]
[2019-06-15] MEDS: WARFARIN 2 MG TABLET. PO SCH (17:01)
[2019-06-15] MEDS: PATCH REMOVAL. MC SCH (20:11)
[2019-06-15] MEDS: PSYLLIUM HUSK (SUGAR FREE) 1 PKT PACKET PO SCH (20:12)
[2019-06-15] MEDS: POLYETHYLENE GLYCOL 3350 17 GM PACKET. PO SCH (20:12)
[2019-06-15] MEDS: ATORVASTATIN CALCIUM 10 MG TABLET. PO SCH (21:21)
[2019-06-15] MEDS: MIRTAZAPINE 7.5 MG TABLET. PO SCH (21:21)
[2019-06-16 02:35] VITALS: BP 204/81
[2019-06-16] MEDS: hydrALAZINE 20 MG/ML VIAL. IVP PRN (02:55)
[2019-06-16] MEDS: LEVOTHYROXINE 175 MCG TABLET PO SCH (06:08)
[2019-06-16 07:00] VITALS: BP 176/77
[2019-06-16 07:08] LABS: BASO # 0.1 x10^3/uL (0.0-0.2); BASO % 1 % (0-3); EOS # 0.4 x10^3/uL (0.0-0.7); EOS % 5 % (0-3); HEMATOCRIT 35.6 % (36.0-47.0); HEMOGLOBIN 11.5 g/dL (12.0-15.5); LYMPH # 1.4 x10^3/uL (1.0-4.8); LYMPH % 17 % (24-48); MEAN CORPUSCULAR HEMOGLOBIN 27 pg (25-35); MEAN CORPUSCULAR HGB CONC 32 g/dL (31-37); MEAN CORPUSCULAR VOLUME 84 fL (79-100); MONO # 0.7 x10^3/uL (0.0-1.1); MONO % 8 % (0-9); NEUT % 70 % (31-73); PLATELET COUNT 183 x10^3/uL (140-400); RED BLOOD COUNT 4.22 x10^6/uL (3.50-5.40); RED CELL DISTRIBUTION WIDTH 18.5 % (11.5-14.5); WHITE BLOOD COUNT 8.6 x10^3/uL (4.0-11.0)
[2019-06-16 07:52] LABS: PROTHROMBIN TIME PATIENT 26.4 SEC (11.7-14.0)
[2019-06-16] MEDS: amLODIPine BESYLATE 10 MG TABLET PO SCH (09:00)
[2019-06-16] MEDS: GABAPENTIN 300 MG CAPSULE. PO SCH ×3 (09:18→21:02)
[2019-06-16] MEDS: oxyCODONE/APAP 10/325 1 TAB TABLET PO PRN ×2 (09:18→18:09)
[2019-06-16] MEDS: METOPROLOL TART IMMED RELEASE 50 MG TABLET. PO SCH ×2 (09:19→21:03)
[2019-06-16] MEDS: PANTOPRAZOLE 40 MG TABLET.DR. PO SCH (09:19)
[2019-06-16] MEDS: AMIODARONE HCL 200 MG TABLET. PO SCH (09:19)
[2019-06-16] MEDS: cefTRIAXone IV Push 1 GM VIAL. IVP SCH (09:20)
[2019-06-16] MEDS: LIDOCAINE (700MG/PATCH) PATCH. TD SCH (09:20)
[2019-06-16] MEDS: rOPINIRole 0.25 MG TABLET. PO SCH ×2 (09:20→21:02)
[2019-06-16] MEDS: ISOSORBIDE MONONITRATE ER 30 MG TAB.ER.24H PO SCH (09:20)
[2019-06-16] MEDS: LACTOBACILLUS RHAMNOSUS GG 1 CAPSULE. PO SCH ×2 (09:20→21:02)
[2019-06-16 10:47] VITALS: BP 146/65
--- NOTE | 2019-06-16 11:16 | SNU/HH DC ---
DISCHARGE ORDERS DISCHARGE INFORMATION: FINAL DIAGNOSIS Problems Medical Problems: (1) Hyperkalemia Status: Acute (2) Tachyarrhythmia Status: Acute CONDITION ON DISCHARGE: Stable CODE STATUS: Code Status: Full SHELTER: SNF STAY <30 DAYS: Yes HOSPICE: HOSPICE: No HOSPICE EVAL & TREAT: No LTAC: ADMIT TO LTAC: No POST DISCHARGE ORDERS: ACTIVITY ORDERS: Other, see below WEIGHT BEARING STATUS: Non weight bearing, Other, see below DIET AFTER DISCHARGE: Cardiac WOUND/INCISION CARE: No wound care needed CHECKS AFTER DISCHARGE: CHECKS AFTER DISCHARGE: Check blood sugar, ac/hs TREATMENT/EQUIPMENT ORDERS: ADAPTIVE EQUIPMENT NEEDED: Walker, Wheelchair Physical Therapy For: Evalulation/Treatment Occupational Therapy For: Evaluation/Treatment DISCHARGE MEDICATIONS: Home Meds Active Scripts Lidocaine (Lidocaine PATCH ) 1 Each Adh..patch, 1 PATCH TD DAILY for pain for 30 Days, #30 PATCH Prov:JANES GRAVES MD 01/01/19 Reported Medications Tramadol Hcl (TRAMADOL HCL) 50 Mg Tablet, 50 MG PO Q6HRS PRN for PAIN, TAB 06/13/19 Acetaminophen (ACETAMINOPHEN) 325 Mg Tablet, 2 TAB PO PRN Q4-6HRS PRN for pain or fever for 24 Days, #100 TAB 0 Refills 06/13/19 Tizanidine Hcl (TIZANIDINE HCL) 4 Mg Tablet, 2 MG PO TID for muscle spasms, TAB 06/13/19 Oxycodone Hcl/Acetaminophen (OXYCODONE-ACETAMINOPHEN 10-325) 1 Each Tablet, 1 TAB PO TID for Pain, #90 TAB 06/13/19 Melatonin (Melatonin) 5 Mg Capsule, 1 CAP PO QHS for sleep for 30 Days, #30 CAP 0 Refills 06/13/19 Oxycodone/Apap 10-325 (PERCOCET 10-325 MG TABLET ) 1 Each Tablet, 1 TAB PO PRN Q8HRS PRN for PAIN, TAB 0 Refills 12/29/18 Ropinirole Hcl (REQUIP) 0.25 Mg Tablet, 0.25 MG PO BID, TAB 12/29/18 Mirtazapine (MIRTAZAPINE) 15 Mg Tablet, 7.5 MG PO QHS, TAB 12/29/18 Diltiazem Hcl (MATZIM LA) 240 Mg Tab.er.24h, 240 MG PO DAILYWSUP, TAB.SR 10/05/16 Potassium Chloride (KLOR-CON M20) 20 Meq Tab.er.prt, 20 MEQ PO DAILY16 10/19/13 Furosemide (LASIX) 80 Mg Tablet, 40 MG PO DAILY, TAB 10/19/13 Digoxin (DIGOXIN) 125 Mcg Tablet, 125 MCG PO DAILY 10/19/13 Pantoprazole Sodium (PROTONIX ) 40 Mg Tablet.dr, 40 MG PO DAILY 10/19/13 Levothyroxine Sodium (LEVOTHYROXINE SODIUM) 125 Mcg Tablet, 175 MCG PO DAILYAC, #30 TAB 0 Refills 10/19/13 Warfarin Sodium (WARFARIN SODIUM) 5 Mg Tablet, 2.5 MG PO DAILY16 for coag, 0 Refills 06/30/13 Gabapentin (NEURONTIN ) 300 Mg Capsule, 300 MG PO TID 06/30/13 Lisinopril (LISINOPRIL) 40 Mg Tablet, 40 MG PO DAILY 06/30/13 TED LAURENT III DO Jun 16, 2019 11:16
[2019-06-16] MEDS ORDERED: AMLO10TA8 PO (11:38)
[2019-06-16] MEDS ORDERED: METO50TA6 PO (11:39)
[2019-06-16] MEDS ORDERED: AMIO400T5 PO (11:40)
[2019-06-16] MEDS ORDERED: ISOS30TA4 PO (11:40)
--- NOTE | 2019-06-16 12:07 | PDOC ---
[employer] PROGRESS NOTE Chief Complaint Chief Complaint Monomorphic VT with underlying hyperkalemia: Post x1 cardioversion no further recurrence Hyperkalemia, resolving NSTEMI: peaked trop at 4.9 due to arrhythmia; pt refused cardiac cath Acute on chronic diastolic heart failure PPM in situ: [facility] for SSS. VVIR single lead. Verified VT for at least 6 hours per interrogation. Normal device Chronic AFIB Hypertension GIOVANNI on CKD3 UTI/constipation Elevated digoxin level: 2.8 Depression GERD Hypothyroid History of Present Illness History of Present Illness 06/16/19 Pt seen and examined in CVC Pt seen at bedside, she looks good She has on a clean cast DW pt DW OT Pt's chart reviewed [id number] Patient seen and examined on the telemetry floor somewhat weak on oxygen complain of nausea and constipation Review chart Discussed the case with the RN [id number] Patient seen and examined with her daughter present Discussed with board handler the labs with the RN and her daughter She has a UTI now We started some Rocephin Overall patient is sitting in bed Seems a little confused On O2 per nasal cannula trying to eat breakfast Vitals/I&O Vitals/I&O: Vital Signs Date Time Temp Pulse Resp B/P (MAP) Pulse Ox O2 Delivery O2 Flow Rate FiO2 06/16/19 10:47 98.3 51 20 146/65 (92) 96 Nasal Cannula 2.0 98.3 I & O 06/15/19 06/15/19 06/16/19 15:00 23:00 07:00 Intake Total 200 ml Output Total 100 ml Balance -100 ml 200 ml Physical Exam General: Alert, Cooperative, No acute distress Heart: Regular rate, Other (HR irregular) Lungs: Clear, Crackles Abdomen: Normal bowel sounds, Soft, No tenderness, No masses Extremities: No clubbing, No cyanosis, Other (right leg in cast) Skin: No rashes, No significant lesion Labs Labs: Laboratory Tests Test 06/16/19 05:55 White Blood Count 8.6 x10^3/uL (4.0-11.0) Red Blood Count 4.22 x10^6/uL (3.50-5.40) Hemoglobin 11.5 g/dL (12.0-15.5) Hematocrit 35.6 % (36.0-47.0) Mean Corpuscular Volume 84 fL (79-100) Mean Corpuscular Hemoglobin 27 pg (25-35) Mean Corpuscular Hemoglobin Concent 32 g/dL (31-37) Red Cell Distribution Width 18.5 % (11.5-14.5) Platelet Count 183 x10^3/uL (140-400) Neutrophils (%) (Auto) 70 % (31-73) Lymphocytes (%) (Auto) 17 % (24-48) Monocytes (%) (Auto) 8 % (0-9) Eosinophils (%) (Auto) 5 % (0-3) Basophils (%) (Auto) 1 % (0-3) Neutrophils # (Auto) 6.0 x10^3/uL (1.8-7.7) Lymphocytes # (Auto) 1.4 x10^3/uL (1.0-4.8) Monocytes # (Auto) 0.7 x10^3/uL (0.0-1.1) Eosinophils # (Auto) 0.4 x10^3/uL (0.0-0.7) Basophils # (Auto) 0.1 x10^3/uL (0.0-0.2) Prothrombin Time 26.4 SEC (11.7-14.0) Prothromb Time International Ratio 2.5 (0.8-1.1) Review of Systems Review of Systems: c/o MURRAY no c/o N/V Assessment and Plan Assessmemt and Plan Problems Medical Problems: (1) Hyperkalemia Status: Acute (2) Tachyarrhythmia Status: Acute Assessment Monomorphic VT with underlying hyperkalemia: Post x1 cardioversion no further recurrence Hyperkalemia, resolving NSTEMI: peaked trop at 4.9 due to arrhythmia Acute on chronic diastolic heart failure PPM in situ: [facility] for SSS. VVIR single lead. Verified VT for at least 6 hours per interrogation. Normal device Chronic AFIB Hypertension GIOVANNI on CKD3 UTI/constipation Elevated digoxin level: 2.8 Depression GERD Hypothyroid Plan Cardiology following Continue home meds Continue PT/OT DVT Prophylaxis DNR Status Probable D/C to SNU pending specialists Comment Review of Relevant I have reviewed the following items prakash (where applicable) has been applied. Medications: Current Medications Medications (Trade) Dose Ordered Sig/Reji Route PRN Reason Start Time Stop Time Status Last Admin Dose Admin Gabapentin (Neurontin) 300 mg TID PO 06/15/19 14:00 06/16/19 09:18 TED LAURENT III DO Jun 16, 2019 12:07
--- NOTE | 2019-06-16 12:16 | PDOC ---
[employer] PROGRESS NOTE Chief Complaint Chief Complaint Monomorphic VT with underlying hyperkalemia: Post x1 cardioversion no further recurrence Hyperkalemia, resolving NSTEMI: peaked trop at 4.9 due to arrhythmia; pt refused cardiac cath Acute on chronic diastolic heart failure PPM in situ: [facility] for SSS. VVIR single lead. Verified VT for at least 6 hours per interrogation. Normal device Chronic AFIB Hypertension GIOVANNI on CKD3 UTI/constipation Elevated digoxin level: 2.8 Depression GERD Hypothyroid History of Present Illness History of Present Illness 06/16/19 Pt seen and examined in CVC Pt seen at bedside, she looks good She has on a clean cast DW pt DW OT Pt's chart reviewed [id number] Patient seen and examined on the telemetry floor somewhat weak on oxygen complain of nausea and constipation Review chart Discussed the case with the RN [id number] Patient seen and examined with her daughter present Discussed with accounts payable representative the labs with the RN and her daughter She has a UTI now We started some Rocephin Overall patient is sitting in bed Seems a little confused On O2 per nasal cannula trying to eat breakfast Vitals/I&O Vitals/I&O: Vital Signs Date Time Temp Pulse Resp B/P (MAP) Pulse Ox O2 Delivery O2 Flow Rate FiO2 06/16/19 10:47 98.3 51 20 146/65 (92) 96 Nasal Cannula 2.0 98.3 I & O 06/15/19 06/15/19 06/16/19 15:00 23:00 07:00 Intake Total 200 ml Output Total 100 ml Balance -100 ml 200 ml Physical Exam General: Alert, Cooperative, No acute distress Heart: Regular rate, Other (HR irregular) Lungs: Clear, Crackles Abdomen: Normal bowel sounds, Soft, No tenderness, No masses Extremities: No clubbing, No cyanosis, Other (right leg in cast) Skin: No rashes, No significant lesion Labs Labs: Laboratory Tests Test 06/16/19 05:55 White Blood Count 8.6 x10^3/uL (4.0-11.0) Red Blood Count 4.22 x10^6/uL (3.50-5.40) Hemoglobin 11.5 g/dL (12.0-15.5) Hematocrit 35.6 % (36.0-47.0) Mean Corpuscular Volume 84 fL (79-100) Mean Corpuscular Hemoglobin 27 pg (25-35) Mean Corpuscular Hemoglobin Concent 32 g/dL (31-37) Red Cell Distribution Width 18.5 % (11.5-14.5) Platelet Count 183 x10^3/uL (140-400) Neutrophils (%) (Auto) 70 % (31-73) Lymphocytes (%) (Auto) 17 % (24-48) Monocytes (%) (Auto) 8 % (0-9) Eosinophils (%) (Auto) 5 % (0-3) Basophils (%) (Auto) 1 % (0-3) Neutrophils # (Auto) 6.0 x10^3/uL (1.8-7.7) Lymphocytes # (Auto) 1.4 x10^3/uL (1.0-4.8) Monocytes # (Auto) 0.7 x10^3/uL (0.0-1.1) Eosinophils # (Auto) 0.4 x10^3/uL (0.0-0.7) Basophils # (Auto) 0.1 x10^3/uL (0.0-0.2) Prothrombin Time 26.4 SEC (11.7-14.0) Prothromb Time International Ratio 2.5 (0.8-1.1) Review of Systems Review of Systems: c/o MURRAY no c/o N/V Assessment and Plan Assessmemt and Plan Problems Medical Problems: (1) Hyperkalemia Status: Acute (2) Tachyarrhythmia Status: Acute Assessment Monomorphic VT with underlying hyperkalemia: Post x1 cardioversion no further recurrence Hyperkalemia, resolving NSTEMI: peaked trop at 4.9 due to arrhythmia Acute on chronic diastolic heart failure PPM in situ: [facility] for SSS. VVIR single lead. Verified VT for at least 6 hours per interrogation. Normal device Chronic AFIB Hypertension GIOVANNI on CKD3 UTI/constipation Elevated digoxin level: 2.8 Depression GERD Hypothyroid Plan Cardiology following Continue home meds Continue PT/OT DVT Prophylaxis DNR Status Probable D/C to SNU pending specialists Comment Review of Relevant I have reviewed the following items prakash (where applicable) has been applied. Medications: Current Medications Medications (Trade) Dose Ordered Sig/Reji Route PRN Reason Start Time Stop Time Status Last Admin Dose Admin Gabapentin (Neurontin) 300 mg TID PO 06/15/19 14:00 06/16/19 09:18 TED LAURENT III DO Jun 16, 2019 12:16
--- NOTE | 2019-06-16 12:28 | NUR ---
SS following up with discharge planning. Discharge orders received for return to [facility], ; fax [phone]. SS phoned and faxed discharge orders and clinical to [facility]. SS awaiting insurance approval and further communication from [facility] at this time. SS will continue to follow for discharge planning.
--- NOTE | 2019-06-16 13:31 | PDOC ---
CARDIO Progress Notes Date and Time Date of Service 06/16/19 Time of Evaluation 1320 Subjective Subjective: No Chest Pain, No Palpitations, Other (SOA with exertion ) Vitals Vitals Vital Signs Date Time Temp Pulse Resp B/P (MAP) Pulse Ox O2 Delivery O2 Flow Rate FiO2 06/16/19 10:47 98.3 51 20 146/65 (92) 96 Nasal Cannula 2.0 98.3 Weight Weight [ ] Input and Output Intake and Output Intake and Output 06/16/19 07:00 Intake Total 200 ml Output Total 100 ml Balance 100 ml Intake Oral 200 ml Output Urine Total 100 ml # Bowel Movements 1 Laboratory Labs Laboratory Tests Test 06/16/19 05:55 White Blood Count 8.6 x10^3/uL (4.0-11.0) Red Blood Count 4.22 x10^6/uL (3.50-5.40) Hemoglobin 11.5 g/dL (12.0-15.5) Hematocrit 35.6 % (36.0-47.0) Mean Corpuscular Volume 84 fL (79-100) Mean Corpuscular Hemoglobin 27 pg (25-35) Mean Corpuscular Hemoglobin Concent 32 g/dL (31-37) Red Cell Distribution Width 18.5 % (11.5-14.5) Platelet Count 183 x10^3/uL (140-400) Neutrophils (%) (Auto) 70 % (31-73) Lymphocytes (%) (Auto) 17 % (24-48) Monocytes (%) (Auto) 8 % (0-9) Eosinophils (%) (Auto) 5 % (0-3) Basophils (%) (Auto) 1 % (0-3) Neutrophils # (Auto) 6.0 x10^3/uL (1.8-7.7) Lymphocytes # (Auto) 1.4 x10^3/uL (1.0-4.8) Monocytes # (Auto) 0.7 x10^3/uL (0.0-1.1) Eosinophils # (Auto) 0.4 x10^3/uL (0.0-0.7) Basophils # (Auto) 0.1 x10^3/uL (0.0-0.2) Prothrombin Time 26.4 SEC (11.7-14.0) Prothromb Time International Ratio 2.5 (0.8-1.1) Microbiology Micro Microbiology 06/13/19 Urine Culture - Final, Complete 06/13/19 Urine Culture Result 1 (ARACELI) - Final, Complete 06/13/19 Antimicrobic Susceptibility - Final, Complete Physical Exam HEENT: Neck Supple W Full Motion Chest: Symmetric LUNGS: Other (diminished bases) Heart: murmurs (2/6 systolic apical murmur), irregularly irregular (AFIB) Abdomen: Soft N/T Extremities: No Calf Tenderness, Other (trace LE edema; right leg cast) Neurology: alert, oriented, follow commands Assessment Assessment 1. Chest pain: due to VT. currently CP free. 2. Monomorphic VT with underlying hyperkalemia: Post x1 cardioversion with no further recurrence on telemetry 3. NSTEMI: peaked trop at 4.9 due to arrhythmia. Cardiac catheterization in lieu of non-STEMI and VT was discussed along with the risks and benefits but patient declined it. 3. Acute on chronic diastolic heart failure: EF at 50%, well compensated 5. PPM in situ: [facility] for SSS. VVIR single lead. Verified VT for at least 6 hours per interrogation. Normal device function. Intermittent v-pacing 6. Chronic AFIB: Demand paced rhythm with underlying afib. . 7. Hypertension: Better controlled 8. GIOVANNI on CKD; improved Recommendations Continue metoprolol, imdur, and statin therapy No ASA as patient has allergy Warfarin for stroke prophylaxis. Supportive care May discharge to from a CV standpoint. AYAD MERCADO APRN Jun 16, 2019 13:31
[2019-06-16] MEDS ORDERED: traMADol 50 MG TABLET PO ONE (14:00)
[2019-06-16 15:00] VITALS: BP 168/74
[2019-06-16] MEDS: WARFARIN 2 MG TABLET. PO SCH (18:09)
[2019-06-16 19:50] VITALS: BP 176/85
--- NOTE | 2019-06-16 20:25 | NUR ---
Pt up i n chair assessment completed vss poc explained pt denied pain at time of assessment. Call light in reach will resume care and continue to monitor pt.
[2019-06-16] MEDS: MIRTAZAPINE 7.5 MG TABLET. PO SCH (21:02)
[2019-06-16] MEDS: ATORVASTATIN CALCIUM 10 MG TABLET. PO SCH (21:02)
[2019-06-16] MEDS: POLYETHYLENE GLYCOL 3350 17 GM PACKET. PO SCH (21:03)
[2019-06-16] MEDS: PSYLLIUM HUSK (SUGAR FREE) 1 PKT PACKET PO SCH (21:03)
[2019-06-16] MEDS: PATCH REMOVAL. MC SCH (21:05)
[2019-06-16 23:15] VITALS: BP 169/75
--- NOTE | 2019-06-16 23:27 | NUR ---
Call Placed to re: pt pain not controlled with prescribed medication orders.
[2019-06-17] MEDS ORDERED: ACETAMINOPHEN 325 MG TABLET. PO PRN (00:15)
[2019-06-17] MEDS ORDERED: traMADol 50 MG TABLET PO PRN (00:15)
--- NOTE | 2019-06-17 00:26 | NUR ---
returned call orders received.
[2019-06-17] MEDS: oxyCODONE/APAP 10/325 1 TAB TABLET PO PRN ×2 (02:49→13:24)
[2019-06-17 02:50] VITALS: BP 175/84
[2019-06-17] MEDS: hydrALAZINE 20 MG/ML VIAL. IVP PRN (02:56)
[2019-06-17] MEDS: LEVOTHYROXINE 175 MCG TABLET PO SCH (05:56)
[2019-06-17] MEDS: PANTOPRAZOLE 40 MG TABLET.DR. PO SCH (05:56)
[2019-06-17 07:00] VITALS: BP 195/81
[2019-06-17 07:05] LABS: PROTHROMBIN TIME PATIENT 28.9 SEC (11.7-14.0)
[2019-06-17] MEDS: amLODIPine BESYLATE 10 MG TABLET PO SCH (08:30)
[2019-06-17] MEDS: AMIODARONE HCL 200 MG TABLET. PO SCH (08:30)
[2019-06-17] MEDS: METOPROLOL TART IMMED RELEASE 50 MG TABLET. PO SCH (08:31)
[2019-06-17] MEDS: GABAPENTIN 300 MG CAPSULE. PO SCH ×2 (08:31→13:24)
[2019-06-17] MEDS: LACTOBACILLUS RHAMNOSUS GG 1 CAPSULE. PO SCH (08:31)
[2019-06-17] MEDS: rOPINIRole 0.25 MG TABLET. PO SCH (08:31)
[2019-06-17] MEDS: ISOSORBIDE MONONITRATE ER 30 MG TAB.ER.24H PO SCH (08:32)
[2019-06-17] MEDS: LIDOCAINE (700MG/PATCH) PATCH. TD SCH (09:00)
--- NOTE | 2019-06-17 10:36 | PDOC ---
[employer] PROGRESS NOTE Chief Complaint Chief Complaint Monomorphic VT with underlying hyperkalemia: Post x1 cardioversion no further recurrence Hyperkalemia, resolving NSTEMI: peaked trop at 4.9 due to arrhythmia; pt refused cardiac cath Acute on chronic diastolic heart failure PPM in situ: [facility] for SSS. VVIR single lead. Verified VT for at least 6 hours per interrogation. Normal device Chronic AFIB Hypertension GIOVANNI on CKD3 UTI/constipation Elevated digoxin level: 2.8 Depression GERD Hypothyroid History of Present Illness History of Present Illness 06/17/19 Pt seen and examined She was sitting up in a chair She is waiting to be d/c DW pt DW RN Pt's chart reviewed 06/16/19 Pt seen and examined in CVC Pt seen at bedside, she looks good She has on a clean cast DW pt DW OT Pt's chart reviewed [id number] Patient seen and examined on the telemetry floor somewhat weak on oxygen complain of nausea and constipation Review chart Discussed the case with the RN [id number] Patient seen and examined with her daughter present Discussed with railroad supervisor of engines the labs with the RN and her daughter She has a UTI now We started some Rocephin Overall patient is sitting in bed Seems a little confused On O2 per nasal cannula trying to eat breakfast Vitals/I&O Vitals/I&O: Vital Signs Date Time Temp Pulse Resp B/P (MAP) Pulse Ox O2 Delivery O2 Flow Rate FiO2 06/17/19 08:32 59 195/81 06/17/19 08:00 Nasal Cannula 2.0 06/17/19 07:00 98.4 18 82 98.4 I & O 06/16/19 06/16/19 06/17/19 15:00 23:00 07:00 Intake Total 480 ml 560 ml 510 ml Output Total 150 ml 300 ml 200 ml Balance 330 ml 260 ml 310 ml Physical Exam General: Alert, Oriented X3, Cooperative, No acute distress Heart: Regular rate, Other (HR irregular) Lungs: Clear, Crackles Abdomen: Normal bowel sounds, Soft, No tenderness, No masses Extremities: No clubbing, No cyanosis, Other (right leg in cast) Skin: No rashes, No significant lesion Labs Labs: Laboratory Tests Test 06/17/19 06:27 Prothrombin Time 28.9 SEC (11.7-14.0) Prothromb Time International Ratio 2.7 (0.8-1.1) Review of Systems Review of Systems: c/o MURRAY no c/o CP c/o SOB Assessment and Plan Assessmemt and Plan Problems Medical Problems: (1) Hyperkalemia Status: Acute (2) Tachyarrhythmia Status: Acute Assessment Monomorphic VT with underlying hyperkalemia: Post x1 cardioversion no further recurrence Hyperkalemia, resolving NSTEMI: peaked trop at 4.9 due to arrhythmia Acute on chronic diastolic heart failure PPM in situ: [facility] for SSS. VVIR single lead. Verified VT for at least 6 hours per interrogation. Normal device Chronic AFIB Hypertension GIOVANNI on CKD3 UTI/constipation Elevated digoxin level: 2.8 Depression GERD Hypothyroid Plan Continue home meds Cardiology following DVT Prophylaxis DNR Status D/C to SNU today pending specialists Comment Review of Relevant I have reviewed the following items prakash (where applicable) has been applied. Medications: Current Medications Medications (Trade) Dose Ordered Sig/Reji Route PRN Reason Start Time Stop Time Status Last Admin Dose Admin Tramadol HCl (Ultram) 50 mg 1X ONCE PO 06/16/19 14:00 06/16/19 14:05 DC 06/16/19 14:06 TED LAURENT III DO Jun 17, 2019 10:36
--- NOTE | 2019-06-17 10:55 | NUR ---
SS following up with discharge planning. Insurance authorization received for [facility], ; fax [phone]. Pt will discharge today and go to [facility] at 1300 via [facility] transport, [id number]. Pt, pt's RN, and pt's family notified.
[2019-06-17 11:00] VITALS: BP 170/74
[2019-06-17] MEDS ORDERED: TIZA4TAB2 PO (11:44)
[2019-06-17] MEDS ORDERED: ATOR10TA60 PO (11:45)
[2019-06-17] MEDS ORDERED: FURO40TA4 PO (11:45)
[2019-06-17] MEDS ORDERED: LISI-334 PO (11:46)
--- NOTE | 2019-06-17 12:13 | SNU/HH DC ---
DISCHARGE ORDERS DISCHARGE INFORMATION: FINAL DIAGNOSIS Problems Medical Problems: (1) Hyperkalemia Status: Acute (2) Tachyarrhythmia Status: Acute CONDITION ON DISCHARGE: Stable CODE STATUS: Code Status: Full [facility]: SNF STAY <30 DAYS: Yes HOSPICE: HOSPICE: No HOSPICE EVAL & TREAT: No LTAC: ADMIT TO LTAC: No POST DISCHARGE ORDERS: ACTIVITY ORDERS: Activity as tolerated WEIGHT BEARING STATUS: Other, see below DIET AFTER DISCHARGE: Cardiac WOUND/INCISION CARE: No wound care needed CHECKS AFTER DISCHARGE: CHECKS AFTER DISCHARGE: Check blood sugar, ac/hs TREATMENT/EQUIPMENT ORDERS: ADAPTIVE EQUIPMENT NEEDED: Walker RESPIRATORY EQUIPMENT NEEDED: Oxygen Physical Therapy For: Evalulation/Treatment Occupational Therapy For: Evaluation/Treatment DISCHARGE MEDICATIONS: Home Meds Active Scripts Lidocaine (Lidocaine PATCH ) 1 Each Adh..patch, 1 PATCH TD DAILY for pain for 30 Days, #30 PATCH Prov:JANES GRAVES MD 01/01/19 Reported Medications Lisinopril (LISINOPRIL) 20 Mg Tablet, 1 TAB PO DAILY for Hypertension, #30 TAB 5 Refills 06/17/19 Furosemide (FUROSEMIDE) 40 Mg Tablet, 40 MG PO DAILY PRN for CHF Exacerbation, TAB 06/17/19 Atorvastatin Calcium (ATORVASTATIN CALCIUM) 10 Mg Tablet, 10 MG PO HS for FOR CHOLESTEROL, #30 TAB 0 Refills 06/17/19 Tizanidine Hcl (TIZANIDINE HCL) 4 Mg Tablet, 2 MG PO TID PRN for MUSCLE SPASMS, TAB 06/17/19 Isosorbide Mononitrate (ISOSORBIDE MONONITRATE ER) 30 Mg Tab.er.24h, 1 TAB PO DAILY for HTN, #30 TAB 5 Refills 06/16/19 Amiodarone Hcl (AMIODARONE HCL) 400 Mg Tablet, 1 TAB PO DAILY for arrhythmia for 30 Days, #30 TAB 0 Refills 06/16/19 Metoprolol Tartrate (METOPROLOL TARTRATE) 50 Mg Tablet, 1 TAB PO BID for HTN, #60 TAB 5 Refills 06/16/19 Amlodipine Besylate (AMLODIPINE BESYLATE) 10 Mg Tablet, 10 MG PO DAILY for HTN, TAB 06/16/19 Tramadol Hcl (TRAMADOL HCL) 50 Mg Tablet, 50 MG PO Q6HRS PRN for PAIN, TAB 06/13/19 Melatonin (Melatonin) 5 Mg Capsule, 1 CAP PO QHS for sleep for 30 Days, #30 CAP 0 Refills 06/13/19 Oxycodone/Apap 10-325 (PERCOCET 10-325 MG TABLET ) 1 Each Tablet, 1 TAB PO PRN Q8HRS PRN for PAIN, TAB 0 Refills 12/29/18 Ropinirole Hcl (REQUIP) 0.25 Mg Tablet, 0.25 MG PO BID, TAB 12/29/18 Mirtazapine (MIRTAZAPINE) 15 Mg Tablet, 7.5 MG PO QHS, TAB 12/29/18 Pantoprazole Sodium (PROTONIX ) 40 Mg Tablet.dr, 40 MG PO DAILY 10/19/13 Levothyroxine Sodium (LEVOTHYROXINE SODIUM) 125 Mcg Tablet, 175 MCG PO DAILYAC, #30 TAB 0 Refills 10/19/13 Warfarin Sodium (WARFARIN SODIUM) 5 Mg Tablet, 2.5 MG PO DAILY16 for coag, 0 Refills 06/30/13 Gabapentin (NEURONTIN ) 300 Mg Capsule, 300 MG PO TID 06/30/13 Discontinued Reported Medications Acetaminophen (ACETAMINOPHEN) 325 Mg Tablet, 2 TAB PO PRN Q4-6HRS PRN for pain or fever for 24 Days, #100 TAB 0 Refills 06/13/19 Amlodipine Besylate (AMLODIPINE BESYLATE) 10 Mg Tablet, 10 MG PO DAILY for HTN, TAB 06/16/19 Oxycodone Hcl/Acetaminophen (OXYCODONE-ACETAMINOPHEN 10-325) 1 Each Tablet, 1 TAB PO TID for Pain, #90 TAB 06/13/19 Diltiazem Hcl (MATZIM LA) 240 Mg Tab.er.24h, 240 MG PO DAILYWSUP, TAB.SR 10/05/16 Digoxin (DIGOXIN) 125 Mcg Tablet, 125 MCG PO DAILY 10/19/13 TED LAURENT III DO Jun 17, 2019 12:13
--- NOTE | 2019-06-17 13:19 | NUR ---
Discharge Note: JOSE MAURO [address] Discharge instructions and discharge home medications reviewed with Marilee RN at [facility] and a copy given to transportation staff. All questions have been answered and understanding verbalized.
== END 2019-06-17 14:08 | disposition home or self-care (01) | DRG 871 ==
LOC: ER 14:16 → 2 SOUTH 14:44
PROVIDERS: ADMIT Internal Medicine; ATTEND Internal Medicine
DX: A41.9 Sepsis, unspecified organism (principal); I21.4 Non-ST elevation (NSTEMI) myocardial infarction; I50.33 Acute on chronic diastolic (congestive) heart failure; I47.2 Ventricular tachycardia; N39.0 Urinary tract infection, site not specified; I48.20 Chronic atrial fibrillation, unspecified; I13.0 Hypertensive heart and chronic kidney disease with heart failure and stage 1 through stage 4 chronic kidney disease, or unspecified chronic kidney disease; N17.9 Acute kidney failure, unspecified; I25.10 Atherosclerotic heart disease of native coronary artery without angina pectoris; F32.9 Major depressive disorder, single episode, unspecified; K21.9 Gastro-esophageal reflux disease without esophagitis; E03.9 Hypothyroidism, unspecified; G89.29 Other chronic pain; J44.9 Chronic obstructive pulmonary disease, unspecified; M19.90 Unspecified osteoarthritis, unspecified site; Z96.649 Presence of unspecified artificial hip joint; I49.5 Sick sinus syndrome; D50.9 Iron deficiency anemia, unspecified; Z66 Do not resuscitate; H54.8 Legal blindness, as defined in USA; E87.5 Hyperkalemia; N18.3 Chronic kidney disease, stage 3 (moderate); K59.00 Constipation, unspecified; Z96.659 Presence of unspecified artificial knee joint; Z95.0 Presence of cardiac pacemaker; Z99.3 Dependence on wheelchair; Z90.710 Acquired absence of both cervix and uterus; Z88.6 Allergy status to analgesic agent; Z88.5 Allergy status to narcotic agent; Z88.8 Allergy status to other drugs, medicaments and biological substances; Z86.73 Personal history of transient ischemic attack (TIA), and cerebral infarction without residual deficits
CPT/HCPCS: 36415; 71045; 74021; 80048; 80053; 80162; 81001; 82962; 83735; 83880; 84443; 84484; 85025; 85610; 87086; 87186; 92960; 93005; 96361; 96374; 96375; J0282; J0360; J0610; J0696; J1815; J1940; J3490; J7030; J7042; Q0162; 99285-25; G0378

== ENCOUNTER → 2019-06-27 | Outpatient (CLI) | payer MEDICARE ==
[2019-06-17 11:00] VITALS: BP 170/74
[~2019-06-27] MED LIST changes: +ACET325T21 PO; +AMIO400T5 PO; +AMLO10TA8 PO; +ATOR10TA60 PO; -FLUO20CA19 PO; +FLUO20CA20 PO; +ISOS30TA4 PO; +LISI-334 PO; +MELA5CAP PO; +METO50TA6 PO; +OXYC-411 PO; +TIZA4TAB2 PO; +TRAM50TA PO
[2019-06-27 06:53] LABS: PROTHROMBIN TIME PATIENT 22.4 SEC (11.7-14.0)
== END | disposition home or self-care (01) ==
LOC: SPEC 00:50 → EDSTATUS 16:27
PROVIDERS: ATTEND Internal Medicine
DX: I48.91 Unspecified atrial fibrillation (principal)
CPT/HCPCS: 36415; 85610

== ENCOUNTER → 2019-06-30 | Outpatient (CLI) | payer MEDICARE ==
[2019-06-17 11:00] VITALS: BP 170/74
[2019-06-30 06:35] LABS: PROTHROMBIN TIME PATIENT 19.1 SEC (11.7-14.0)
== END | disposition home or self-care (01) ==
LOC: SPEC 00:08 → EDSTATUS 07:51
PROVIDERS: ATTEND Internal Medicine
DX: S82.401D Unspecified fracture of shaft of right fibula, subsequent encounter for closed fracture with routine healing (principal); I48.91 Unspecified atrial fibrillation; X58.XXXD Exposure to other specified factors, subsequent encounter
CPT/HCPCS: 36415; 85610

== ENCOUNTER → 2019-07-03 | Outpatient (CLI) | payer MEDICARE ==
[2019-06-17 11:00] VITALS: BP 170/74
[2019-07-03 06:20] LABS: PROTHROMBIN TIME PATIENT 27.8 SEC (11.7-14.0)
== END | disposition home or self-care (01) ==
LOC: SPEC 00:02 → EDSTATUS 10:04
PROVIDERS: ATTEND Internal Medicine
DX: Z79.01 Long term (current) use of anticoagulants (principal)
CPT/HCPCS: 36415; 85610

== ENCOUNTER → 2019-07-07 | Outpatient (CLI) | payer MEDICARE ==
[2019-06-17 11:00] VITALS: BP 170/74
[2019-07-07 06:34] LABS: PROTHROMBIN TIME PATIENT 38.5 SEC (11.7-14.0)
== END | disposition home or self-care (01) ==
LOC: SPEC 02:32
PROVIDERS: ATTEND Internal Medicine
DX: S82.401D Unspecified fracture of shaft of right fibula, subsequent encounter for closed fracture with routine healing (principal); Z98.890 Other specified postprocedural states; X58.XXXD Exposure to other specified factors, subsequent encounter
CPT/HCPCS: 36415; 85610

== ENCOUNTER → 2019-07-08 | Outpatient (CLI) | payer MEDICARE ==
[2019-06-17 11:00] VITALS: BP 170/74
[2019-07-08 06:04] LABS: PROTHROMBIN TIME PATIENT 31.6 SEC (11.7-14.0)
== END | disposition home or self-care (01) ==
LOC: SPEC 00:28
PROVIDERS: ATTEND Internal Medicine
DX: S82.401D Unspecified fracture of shaft of right fibula, subsequent encounter for closed fracture with routine healing (principal); I48.20 Chronic atrial fibrillation, unspecified; X58.XXXD Exposure to other specified factors, subsequent encounter
CPT/HCPCS: 36415; 85610

== ENCOUNTER → 2019-07-09 | Outpatient (CLI) | payer MEDICARE ==
[2019-06-17 11:00] VITALS: BP 170/74
[2019-07-09 05:51] LABS: PROTHROMBIN TIME PATIENT 29.3 SEC (11.7-14.0)
== END | disposition home or self-care (01) ==
LOC: SPEC 00:09
PROVIDERS: ATTEND Internal Medicine
DX: S82.401D Unspecified fracture of shaft of right fibula, subsequent encounter for closed fracture with routine healing (principal); Z79.01 Long term (current) use of anticoagulants; X58.XXXD Exposure to other specified factors, subsequent encounter
CPT/HCPCS: 36415; 85610